=== PATIENT | female | born 1930 | race Caucasian/White ===

== ENCOUNTER 2016-10-17 05:21 | Observation (INO) | payer MEDICARE, MEDICAID ==
[2016-10-17 06:26] LABS: Hematocrit 35 % (35-47); Hemoglobin 11.4 g/dl (12.0-16.0); Mean Corpuscular HGB Conc 33 g/dl (31-36); Mean Corpuscular Hemoglobin 29 pg (27-31); Mean Corpuscular Volume 88 fL (80-97); Mean Platelet Volume 10 um3 (7.4-10.4); Red Blood Count 3.91 10^6/ul (4.0-5.4); Red Cell Distribution Width 15 % (10.5-15); White Blood Count 5.5 10^3/ul (3.5-10.8)
--- NOTE | 2016-10-17 06:33 | ED ---
Cheryl Resendez Claudia, scribed for Mac Lozano MD on 10/17/16 at 0536 . HPI Chest Pain - HPI Summary HPI Summary: 86 year old female presents to [facility] ED via EMS from her assisted living facility. Per EMS they received a call from the nursing staff personal banker stating that the pt was having CP, when they got to the shelter the pt was asleep and denied any CP, SOB. EMS then brought the pt to [facility] ED. Upon arrival to the ED the pt is still asymptomatic denying any abd pain, NVD, SOB, CP. - History of Current Complaint Chief Complaint: EDChestPainROMI Hx Obtained From: Patient Associated Signs and Symptoms: Negative: Chest Pain, Shortness of Breath, Nausea , Abdominal Pain, Vomiting - Allergy/Home Medications Allergies/Adverse Reactions: Allergies Allergy/AdvReac Type Severity Reaction Status Date / Time Amphetamine Allergy Unknown Verified 05/25/14 10:13 Reaction Details Caffeine Allergy Unknown Verified 05/25/14 10:13 Reaction Details Carisoprodol Allergy Unknown Verified 05/25/14 10:13 Reaction Details Codeine Allergy Unknown Verified 05/25/14 10:13 Reaction Details Erythromycin Allergy Unknown Verified 05/25/14 10:13 [From Erythrocin Stearate] Reaction Details Fluorouracil [From Efudex] Allergy Unknown Verified 05/25/14 10:13 Reaction Details Hydrochlorothiazide Allergy Unknown Verified 05/25/14 10:13 Reaction Details Ibuprofen Allergy Unknown Verified 05/25/14 10:13 Reaction Details Levofloxacin [From Levaquin] Allergy Unknown Verified 05/25/14 10:13 Reaction Details Macrolides Allergy Unknown Verified 05/25/14 10:13 Reaction Details Metaxalone [From Skelaxin] Allergy Unknown Verified 05/25/14 10:13 Reaction Details Nitrofurantoin Allergy Unknown Verified 05/25/14 10:13 [From Macrobid] Reaction Details Penicillins Allergy Unknown Verified 05/25/14 10:13 Reaction Details Sulfa Drugs Allergy Unknown Verified 05/25/14 10:13 Reaction Details PMH/Surg Hx/FS Hx/Imm Hx Previously Healthy: Yes Endocrine/Hematology History: Reports: Hx Diabetes Denies: Hx Anticoagulant Therapy, Hx Systemic Lupus Erythematosus, Hx Thyroid Disease Cardiovascular History: Reports: Hx Hypertension Denies: Hx Congestive Heart Failure, Hx Pacemaker/ICD Respiratory History: Denies: Hx Asthma, Hx Chronic Obstructive Pulmonary Disease (COPD) History: Denies: Hx Dialysis, Hx Renal Disease Musculoskeletal History: Denies: Hx Rheumatoid Arthritis Neurological History: Reports: Hx Dementia Denies: Hx Seizures Psychiatric History: Denies: Hx Substance Abuse - Cancer History Hx Chemotherapy: No - Surgical History Surgery Procedure, Year, and Place: cholecystectomy Infectious Disease History: Denies: Hx Hepatitis, Hx Human Immunodeficiency Virus (HIV) - Family History Known Family History: Positive: Hypertension - Social History Occupation: Retired Lives: Assisted Living Alcohol Use: None Substance Use Type: Reports: None Smoking Status (MU): Never Smoked Tobacco Review of Systems Constitutional: Negative Eyes: Negative ENT: Negative Cardiovascular: Negative Negative: Chest Pain Respiratory: Negative Negative: Shortness Of Breath Gastrointestinal: Negative Negative: Abdominal Pain, Vomiting, Diarrhea, Nausea Genitourinary: Negative Musculoskeletal: Negative Skin: Negative Neurological: Negative Psychological: Normal All Other Systems Reviewed And Are Negative: Yes Physical Exam Triage Information Reviewed: Yes Vital Signs On Initial Exam: Initial Vitals Temp Pulse Resp BP Pulse Ox 98.3 F 52 16 120/47 100 10/17/16 05:30 10/17/16 05:30 10/17/16 05:30 10/17/16 05:30 10/17/16 05:30 Vital Signs Reviewed: Yes Appearance: Positive: No Pain Distress - pleasantly demented Skin: Positive: Warm Head/Face: Positive: Normal Head/Face Inspection Eyes: Positive: MARK ENT: Positive: Hearing grossly normal Neck: Positive: Supple Respiratory/Lung Sounds: Positive: Clear to Auscultation, Breath Sounds Present Cardiovascular: Positive: RRR Abdomen Description: Positive: Nontender, Soft Musculoskeletal: Positive: Strength/ROM Intact Neurological: Positive: Alert, Oriented to Person Place, Time Diagnostics - Vital Signs Vital Signs Temp Pulse Resp BP Pulse Ox 10/17/16 05:30 98.3 F 52 16 120/47 100 - Laboratory Lab Results: Lab Results 10/17/16 Range/Units 06:15 WBC 5.5 (3.5-10.8) 10^3/ul RBC 3.91 L (4.0-5.4) 10^6/ul Hgb 11.4 L (12.0-16.0) g/dl Hct 35 (35-47) % MCV 88 (80-97) fL MCH 29 (27-31) pg MCHC 33 (31-36) g/dl RDW 15 (10.5-15) % Plt Count 143 L (150-450) 10^3/ul MPV 10 (7.4-10.4) um3 Neut % (Auto) 59.2 (38-83) % Lymph % (Auto) 30.7 (25-47) % [place] % (Auto) 9.1 H (1-9) % Eos % (Auto) 0.6 (0-6) % Baso % (Auto) 0.4 (0-2) % Absolute Neuts (auto) 3.3 (1.5-7.7) 10^3/ul Absolute Lymphs (auto) 1.7 (1.0-4.8) 10^3/ul Absolute Monos (auto) 0.5 (0-0.8) 10^3/ul Absolute Eos (auto) 0 (0-0.6) 10^3/ul Absolute Basos (auto) 0 (0-0.2) 10^3/ul Absolute Nucleated RBC 0 10^3/ul Nucleated RBC % 0.1 Result Diagrams: 10/17/16 06:15 10/17/16 06:15 Lab Statement: Any lab studies that have been ordered have been reviewed, and results considered in the medical decision making process. - Radiology CXR Xray Interpretation: No Acute Changes - NEGATIVE EXAM Radiology Interpretation Completed By: ED Physician - EKG 620 Cardiac Rate: Bradycardia EKG Rhythm: Sinus Bradycardia - 50 BEATS/MIN Chest Pain Course/Dx - Course Assessment/Plan: MDM: Pt agreeable with the plan to be d/c home after negative trop, EKG and CXR within nml limits. - Diagnoses Provider Diagnoses: Chest pain Discharge - Discharge Plan Condition: Stable Disposition: [facility] Patient Education Materials: Chest Pain (ED) Referrals: Jason James MD [Primary Care Provider] - 2 Days The documentation as recorded by the Cheryl mcdonald Claudia accurately reflects the service I personally performed and the decisions made by , Mac Lozano MD.
[2016-10-17 06:39] LABS: BUN/Creatinine Ratio 27.9 (8-20); Calcium 9.3 mg/dL (8.6-10.3); EGFR African American 59.8 (>60); EGFR Non-African American 46.5 (>60)
[2016-10-17 06:50] LABS: Troponin I 0.09 ng/mL (<0.04)
--- NOTE | 2016-10-17 07:56 | RAD ---
INDICATION: Chest pain COMPARISON: Chest x-ray dated April 09, 2014 TECHNIQUE: PA and lateral views of the chest were obtained. FINDINGS: Stable postoperative findings include sternotomy wires and surgical clips overlying the heart. The heart and mediastinum are normal in size and contour. Coarse calcification is again seen overlying the arch of the aorta. The lungs are grossly clear. There is no evidence of large pleural effusion. Visualized bones are normal for the patient's age. There is no radiographic evidence of free air beneath the diaphragm IMPRESSION: No radiographic evidence of acute cardiopulmonary disease.
[2016-10-17] MEDS ORDERED: Bisacodyl SUPP* 10 MG SUPP PR PRN (08:41)
[2016-10-17] MEDS ORDERED: cloNIDine TAB* 0.1 MG PO PRN ×2 (08:41→08:59)
[2016-10-17] MEDS ORDERED: Artificial Tears* 15 ML BTL BOTH EYES PRN (08:41)
[2016-10-17] MEDS ORDERED: Dextrose 50% Syringe 50 ML* 25 GM/50 ML SYRINGE IV PUSH PRN (08:47)
[2016-10-17] MEDS ORDERED: Insulin NPH(*) 1 UNITS UNIT SUBCUT SCH ×2 (09:00→17:00)
[2016-10-17] MEDS ORDERED: Insulin REGULAR(*) 1 UNITS UNIT SUBCUT SCH ×2 (09:00→17:00)
[2016-10-17 09:15] LABS: HDL Cholesterol 26.1 mg/dL
[2016-10-17] MEDS ORDERED: NS 0.9% 1000 ML* 1,000 ML IV SCH (09:15)
[2016-10-17] MEDS: Bisacodyl EC TAB* 5 MG PO SCH (11:11)
[2016-10-17] MEDS: Docusate CAP* 100 MG PO SCH (11:11)
[2016-10-17] MEDS: Potassium Chlor TAB* 10 MEQ TAB.ER PO SCH (11:12)
[2016-10-17] MEDS: Digoxin TAB* 0.25 MG PO SCH (11:14)
[2016-10-17] MEDS: Cholecalciferol TAB* 400 UNIT PO SCH (11:15)
[2016-10-17] MEDS: Furosemide TAB* 40 MG PO SCH (11:16)
[2016-10-17] MEDS: Aspirin Low Dose CHEW TAB* 81 MG PO SCH (11:16)
[2016-10-17] MEDS: Lisinopril TAB* 10 MG PO SCH (11:16)
[2016-10-17] MEDS: Senna TAB PO SCH (11:18)
[2016-10-17] MEDS: Carbidopa/Levodop 25/100 MG TAB(*) PO SCH ×3 (11:18→22:15)
[2016-10-17] MEDS: Cyanocobalamin TAB* 500 MCG PO SCH (11:18)
--- NOTE | 2016-10-17 11:45 | ECHO ---
Patient: ANUSHKA ROBISON [facility] Rec#: [id number] : 1930 Date: 10/17/2016 Age: 86y Height: 160.02 cm / 63.0 in Weight: 124.74 kg / 274.9 lbs Sex: F BSA: 2.21 Room#: 432 Admit Date#: 10/17/2016 Type: Inpatient Referring: Balbina Mckinley MD Reading: Jaun Shabazz MD Senior Environmental Consultant: Anali Funez,RDCS,RDMS CC: Jason James Transthoracic Echocardiogram Indication: CP, Elevated Trop BP: 121/54 HR: 55 Rhythm: Bradycardia Findings History: CAD, CABG, DM, HTN Technical Comments: The study quality is good. Completed 1000 Left Ventricle: The left ventricular chamber size is normal. Mild concentric left ventricular hypertrophy is observed. Global left ventricular wall motion and contractility are within normal limits. There is normal left ventricular systolic function. The estimated ejection fraction is 60-65%. The left ventricular diastolic filling pattern is consistent with pseudonormalization. Left Atrium: The left atrium is mild to moderately dilated. Right Ventricle: The right ventricle wall thickness is moderately increased. The right ventricular cavity size is normal. The right ventricular global systolic function is low normal. Right Atrium: The right atrium is slightly dilated. Aortic Valve: The aortic valve is trileaflet. The aortic valve leaflets are mildly thickened.The degree of aortic stenosis is borderline to mild. There is no evidence of aortic regurgitation. The mean gradient of the aortic valve is 3.5 mmHg. The aortic valve area, by peak velocities, is calculated at 1.9 cm2. Mitral Valve: There is mitral annular calcification. There is a trace of mitral regurgitation. There is no evidence of mitral stenosis. Tricuspid Valve: The tricuspid valve leaflets are normal. There is trace tricuspid regurgitation. Unable to estimate the right ventricular systolic pressure. Pulmonic Valve: The pulmonic valve appears normal. There is mild pulmonic regurgitation. Pericardium: There is no significant pericardial effusion. Aorta: The aortic root appears normal. There is no dilatation of the aortic arch. Pulmonary Artery: The main pulmonary artery appears normal. Venous: The inferior vena cava is not visualized. Conclusions Mild concentric left ventricular hypertrophy is observed. There is normal left ventricular systolic function. The estimated ejection fraction is 60-65%. The left ventricular diastolic filling pattern is consistent with pseudonormalization. The left atrium is mild to moderately dilated. The right atrium is slightly dilated. The aortic valve leaflets are mildly thickened.The degree of aortic stenosis is borderline to mild. There is a trace of mitral regurgitation. There is trace tricuspid regurgitation. Compared to report of study from 03/25/2011 the degree of aortic stenosis is slightly more (was reported as mildly thickened but not stenotic). Overall LV contractility appears better (was reported as 50-55% with focal wall motion abnormality which is no longer seen). Measurements Name Value Normal Range RVIDd (AP) 2D 3.4 cm (0.9 - 2.6) RAd ISD 4CH 5.1 cm (3.4 - 4.9) RA (A4C)W 3.4 cm (2.9 - 4.6) IVSd (2D) 1.3 cm (0.6 - 1) LVPWd (2D) 1.3 cm (0.6 - 1) LVIDd (2D) 4.8 cm (3.6 - 5.4) LVIDs (2D) 2.9 cm - LV FS (2D) 40 % (25 - 45) Aortic Annulus 2 cm (1.4 - 2.6) Ao root diameter (2D) 3.4 cm (2.1 - 3.5) Ascending Ao 3.3 cm (2.1 - 3.4) Aortic arch 2.8 cm (1.8 - 3.4) LA dimension (AP) 2D 4.2 cm (2.3 - 3.8) LAd ISD 4CH 5.9 cm (2.9 - 5.3) LA ISD 4CH W 4.8 cm (2.5 - 4.5) Name Value Normal Range LA ESV SP 4CH (A/L) 107.46 ml - LA ESV SP 2CH (A/L) 80.03 ml - LA ESV BP (A/L) 94.92 ml - LA ESV BP (A/L) index 43 ml/m2 - LA ESV SP 4CH (MOD) 100.28 ml - LA ESV SP 2CH (MOD) 73.34 ml - Name Value Normal Range MV E-wave Vmax 0.9 m/sec - MV deceleration time 207 msec - MV A-wave Vmax 0.6 m/sec - MV E:A ratio 1.5 ratio - P. vein S-wave Vmax 0.5 m/sec - P. vein D-wave Vmax 0.5 m/sec - P. vein S:D Vmax ratio 1 ratio - P. vein A-wave duration 157 msec - LV septal e' Vmax 0.03 m/sec - LV lateral e' Vmax 0.05 m/sec - LV E:e' septal ratio 30 ratio - LV E:e' lateral ratio 18 ratio - Name Value Normal Range AV Vmax 1.3 m/sec - AV VTI 36 cm - AV peak gradient 7 mmHg - AV mean gradient 3.5 mmHg - LVOT diameter 2 cm - LVOT Vmax 0.8 m/sec - LVOT VTI 25 cm - LVOT peak gradient 2.6 mmHg - LVOT mean gradient 1.2 mmHg - SAMEER (continuity Vmax) 1.9 cm2 - SAMEER (continuity VTI) 2.2 cm2 - ETIENNE Vmax 0.6 m/sec - Name Value Normal Range RAP 8 mmHg - Name Value Normal Range PV Vmax 0.8 m/sec - PV peak gradient 2.6 mmHg -
[2016-10-17] MEDS: Polyethylene Glycol 3350* 17 GM PACKET PO SCH (12:53)
--- NOTE | 2016-10-17 12:54 | HP ---
CC: Dr. Jason James HISTORY AND PHYSICAL: DATE OF ADMISSION: 10/17/16 TIME OF EVALUATION: 8:30 p.m. PRIMARY CARE PROVIDER: Dr. Jason James. CHIEF COMPLAINT: Chest pain. HISTORY OF PRESENT ILLNESS: Ms. Workman is an 86-year-old lady with a past medical history of naye nary artery disease, status post CABG, hypertension, diabetes, hyperlipidemia, osteoarthritis, morbi d obesity, Parkinson's, dementia, resident at [facility] who is brought in by EMS to the emergency room with complaints of chest pain. The patient does not remember what happened. As per alf notes on 10/15/16, around 10:26 p.m., the patient was noted to be short of breat h, had some increased shakiness of her right arm, had no complaints of pain and her oxygen saturatio n was found to be 83% on room air. At that point, the nurse practitioner on-call recommended the evelyn arnold to be transferred to [facility] for further evaluation, but the patient's condition had improved by t he time the ambulance arrived and the patient refused to leave. On note from 10/16/16, is the patie nt had no complaints of shortness of breath, oxygen saturation was 98% on room air. On 10/17/16, a t 4:38 a.m., the nurse was called that the patient was complaining of similar symptomatology from 2 days ago with chest pain and shortness of breath. Vital signs were found to be within normal limits and at that point the patient agreed to come to the emergency room for further evaluation. As per EMS note, by the time they arrived, she had no complaints and she was only saying that she did not w ant to bother anyone. At this point, she is unable to give me any further information about her symptoms. She points to he r retrosternal area and states "it was not working fine," but she cannot give me details. She denie s chest pain or shortness of breath at this point. As per daughter, the patient has coronary artery disease and had a CABG done in 1999. She states th at after surgery the patient did fairly well and has had very sporadic episodes of chest pain. The patient is not very active at this point. She uses a Juli lift for transfer. As per daughter, she uses a wheelchair, shuffling her legs, but cannot transfer or perform any other physical activit ies. The daughter also states the patient snores, and as far as she knows, she was never worked up for sleep apnea. PAST MEDICAL HISTORY: 1. Coronary artery disease, status post angioplasty and 4-vessel CABG in 1999. 2. Hypertension. 3. Type 2 diabetes. 4. Hyperlipidemia. 5. Osteoarthritis. 6. Morbid obesity with a BMI of 48. 7. Parkinson's disease. 8. Dementia. MEDICATION LIST: 1. Artificial tears 1 drop to both eyes twice a day as needed for dry eye. 2. Aspirin 81 mg p.o. daily. 3. Bisacodyl 5 mg p.o. daily. 4. Bisacodyl suppository 1 suppository per rectum daily as needed for constipation. 5. Carbidopa and levodopa 25/100 mg p.o. t.i.d. 6. Cholecalciferol 1200 units p.o. daily. 7. Clonidine 0.1 mg p.o. b.i.d. as needed for SBP over 180. 8. Cyanocobalamin 500 mcg p.o. daily. 9. Digoxin 0.25 mg p.o. daily. 10. Furosemide 40 mg p.o. daily. 11. Insulin 70/30, 28 units subcutaneously at 8 a.m. and 20 mg units subcutaneously at 5 p.m. 12. Lisinopril 20 mg p.o. daily. 13. MiraLAX 17 g p.o. daily. 14. Potassium chloride 20 mEq p.o. daily. 15. Senna Plus 2 tablets p.o. daily. ALLERGIES: As per daughter, the patient has a long list of medications that caused different reacti ons. Most of them are described as lethargy and altered mental status. The list includes: 1. AMPHETAMINE. 2. CAFFEINE. 3. CARISOPRODOL. 4. CODEINE. 5. ERYTHROMYCIN. 6. FLUOROURACIL. 7. HYDROCHLOROTHIAZIDE. 8. IBUPROFEN. 9. LEVOFLOXACIN. 10. MACROLIDES. 11. METAXALONE. 12. NITROFURANTOIN. 13. PENICILLIN. 14. SULFAS. FAMILY HISTORY: I am unable to obtain from the patient due to her dementia. SOCIAL HISTORY: I am unable to obtain from the patient due to her dementia. As per prior H and P, she denies tobacco or alcohol use. She resides at [facility]. Surrogate decision maker is her pily ghter, "Janet Sandoval," phone number is . REVIEW OF SYSTEMS: I am unable to obtain from the patient due to her dementia. PHYSICAL EXAMINATION GENERAL: The patient is a pleasantly confused, morbid obese, elderly lady, [facility], in no acute distress. VITAL SIGNS: Temperature 98.3, heart rate is 52, respiratory rate is 16, oxygen saturation is 99% o n room air, blood pressure is 120/47. HEENT: Pupils are equal. Moist mucous membranes. CHEST: Breath sounds present bilaterally with no added sounds. CVS: Normal S1, S2. Regular rate and rhythm. Bradycardic. ABDOMEN: Obese, soft. Bowel sounds are present. No tenderness. EXTREMITIES: The patient has bilateral lower extremity chronic skin changes with hyperkeratotic svetlana ls and skin, but no signs of infection at this time. She appears to have chronic lower extremity ed deepika. There is no calf tenderness. NEUROLOGIC: She is alert, awake, and oriented to self and place. Able to move all 4 extremities. LABORATORY AND IMAGING DATA: The patient had a CBC that showed a WBC of 5.5, hemoglobin of 11.4, h ematocrit of 35, platelets of 143 with 59% neutrophils. Chemistries showed a sodium of 133, potassiu m of 4, chloride of 102, bicarb of 25, BUN of 31, creatinine of 1.11, glucose of 219, calcium 9.3. First troponin was 0.09. Chest x-ray showed no radiographic evidence of acute cardiopulmonary disease. EKG done on 10/17/16 at 6:20 a.m. shows sinus bradycardia at 50 beats per minute with RBBB and a LPFB. This is unchanged from her prior EKG from May 2014. ASSESSMENT AND PLAN: Ms. Workman is an 86-year-old lady with a past medical history of coronary ar joao disease, status post CABG, hypertension, diabetes, hyperlipidemia, morbid obesity, Parkinson's dementia who presented to the emergency room with complaints of chest pain. 1. Chest pain, rule out acute coronary syndrome. The patient is not able to give me details about her symptoms because she does not recall them anymore, but per alf notes, it appears that f or the past 2 nights she has had chest pain and shortness of breath and at least 1 episode she was f ound to have an oxygen saturation of 83% on room air. The patient has a known history of coronary artery disease and her initial troponin is 0.09. She wi ll be admitted to telemetry as observation and we are going to check serial troponins. I am also go ing to check an echocardiogram looking for wall motion abnormalities. I discussed the findings we have so far with her daughter (Janet) and she states that her mother w ould not be interested in any invasive or aggressive measures. The plan at this point is to continue to treat her with aspirin, add a statin. She is already bradycardic, so for that reason a beta blo cker will not be added. If her troponin continues to trend up, her daughter would consider anticoag ulation with heparin, but she is not interested in stress test, cardiac cath, or any other aggressiv e measures. The patient does not have any recent trips. Her level of activity has not changed. She has no calf tenderness, so I think PE is very unlikely as the cause of her chest pain. I am going to check a D- dimer. 2. Probable obstructive sleep apnea. The patient is morbidly obese and as per her daughter, the pa catalina snores. I suspect overnight hypoxemia is likely associated with undiagnosed obstructive sleep apnea and the overnight hypoxia may be causing cardiac stress and be the source of her chest pain a nd borderline troponin. We are going to check an overnight oximetry on room air and see if she qualifies for oxygen. 3. Type 2 diabetes. We will continue regular and NPH insulin with lispro sliding scale. 4. Hypertension. It is controlled at this time. We continue clonidine as needed for SBP greater t connor 180. 5. Parkinson's disease. We will continue Sinemet. 6. DVT prophylaxis: The patient has a score of 4 on the DVT Prophylaxis Risk Assessment Guide and she will be started on subcutaneous heparin. 7. Code status: The patient has a MOLST form in place that states she is a do not resuscitate and this was confirmed with her daughter. The second page of her MOLST form is also filled up detailing the limited interventions that the patient would accept and this form was filed and updated. TIME SPENT: Approximately 60 minutes were spent with the patient's daughter interview, medical herson rds review, physical examination to complete this admission, more than half of this time was spent f christina-to-face with the patient in coordination of care. [id number]/[facility] #: [id number]
[2016-10-17] MEDS: Insulin LISPRO* 1 UNITS UNIT SUBCUT SCH ×3 (14:00→20:44)
[2016-10-17] MEDS: Heparin VIAL(*) 5000 UNITS/ML VIAL (FIVE THOUSAND) SUBCUT SCH ×2 (14:01→21:28)
--- NOTE | 2016-10-17 17:51 | PN ---
Hospitalist Progress Note HOSPITALIST ADDENDUM Called by RN because patient was more lethargic. FS was 61. After receiving dextrose, mental status is back to her baseline as this AM. Will hold evening NPH/regular insulin doses and repeat FS at bedtime. Will only cover with Lispro if FS>200.
[2016-10-17] MEDS: Atorvastatin* 40 MG TAB PO SCH (19:10)
[2016-10-17] MEDS: Nystatin TOP POWDER* 15 GM BTL TOPICAL SCH (21:30)
[2016-10-17] MEDS: cloNIDine TAB* 0.1 MG PO SCH (21:36)
[2016-10-17 22:28] LABS: Urine Bacteria Absent (Absent); Urine Bilirubin Negative (Negative); Urine Glucose Negative (Negative); Urine Nitrite Negative (Negative)
[2016-10-18 05:14] LABS: BUN/Creatinine Ratio 26.5 (8-20); Calcium 9.2 mg/dL (8.6-10.3); EGFR Non-African American 53.7 (>60); Potassium 3.7 mmol/L (3.5-5.0)
[2016-10-18] MEDS: Heparin VIAL(*) 5000 UNITS/ML VIAL (FIVE THOUSAND) SUBCUT SCH ×3 (05:47→20:49)
[2016-10-18] MEDS: Carbidopa/Levodop 25/100 MG TAB(*) PO SCH ×4 (05:52→20:47)
[2016-10-18] MEDS: Senna TAB PO SCH (08:43)
[2016-10-18] MEDS: Bisacodyl EC TAB* 5 MG PO SCH (08:43)
[2016-10-18] MEDS: Aspirin Low Dose CHEW TAB* 81 MG PO SCH (08:43)
[2016-10-18] MEDS: Docusate CAP* 100 MG PO SCH (08:43)
[2016-10-18] MEDS: Cholecalciferol TAB* 400 UNIT PO SCH (08:43)
[2016-10-18] MEDS: Digoxin TAB* 0.25 MG PO SCH (08:44)
[2016-10-18] MEDS: Potassium Chlor TAB* 10 MEQ TAB.ER PO SCH (08:46)
[2016-10-18] MEDS: Furosemide TAB* 40 MG PO SCH (08:46)
[2016-10-18] MEDS: cloNIDine TAB* 0.1 MG PO SCH ×2 (08:46→20:47)
[2016-10-18] MEDS: Polyethylene Glycol 3350* 17 GM PACKET PO SCH (08:46)
[2016-10-18] MEDS: Lisinopril TAB* 10 MG PO SCH (08:47)
[2016-10-18] MEDS: Insulin LISPRO* 1 UNITS UNIT SUBCUT SCH ×4 (08:47→20:53)
[2016-10-18] MEDS: Cyanocobalamin TAB* 500 MCG PO SCH (08:47)
[2016-10-18] MEDS: Nystatin TOP POWDER* 15 GM BTL TOPICAL SCH ×2 (08:48→20:49)
--- NOTE | 2016-10-18 12:03 | RAD ---
HISTORY: Leg pain TECHNIQUE: Multiple transverse and longitudinal ultrasound images were obtained of the veins of the bilateral lower extremities using grayscale, color Doppler, and spectral Doppler imaging with and without compression and with augmentation. FINDINGS: VEINS: The common femoral vein, deep femoral vein, femoral vein and popliteal vein are compressible throughout their course, with normal flow on color Doppler imaging and normal response to augmentation on spectral Doppler imaging. SOFT TISSUES: Grossly normal. No large popliteal fossa cyst was identified. IMPRESSION: No sonographic evidence of deep femoropopliteal vein thrombosis.
[2016-10-18] MEDS ORDERED: Iodixanol* (CONTRAST) 320 MG/ML 100 ML SDV IV ONE (12:21)
--- NOTE | 2016-10-18 12:38 | RAD ---
HISTORY: Chest pain, hypoxia COMPARISONS: April 09, 2014 TECHNIQUE: Multiple contiguous axial CT scans of the chest were obtained after the administration of nonionic intravenous contrast, timed to the pulmonary arterial phase of contrast enhancement.. Coronal and sagittal multiplanar reformations are also submitted for review. FINDINGS: NECK AND THYROID: The lower neck and thyroid are unremarkable. CHEST WALL: There is no lower cervical, axillary, or supraclavicular lymphadenopathy by size criteria. HEART AND PERICARDIUM: The heart is unremarkable. AORTA AND PULMONARY VASCULATURE: There is no pulmonary arterial filling defect to suggest pulmonary embolism. Evaluation the aorta is limited secondary to technique and phase of contrast demonstration. There is atherosclerosis of the aorta. There is no aneurysmal dilatation.. MEDIASTINUM: There is no mediastinal lymphadenopathy by size criteria. SANDRA: There is no hilar lymphadenopathy by size criteria. AIRWAY AND ESOPHAGUS: The airway is unremarkable, without endobronchial filling defect. The esophagus is grossly normal. LUNG PARENCHYMA: The lungs are clear. PLEURA: No pleural abnormalities are noted. UPPER ABDOMEN: The upper abdomen is unremarkable. BONES AND SOFT TISSUES: Mild degenerative changes are noted. The patient is status post median sternotomy. OTHER: None. IMPRESSION: NO PULMONARY ARTERIAL FILLING DEFECT TO SUGGEST PULMONARY EMBOLISM
--- NOTE | 2016-10-18 16:15 | DS ---
CC: Dr. Jason James DATE OF ADMISSION: 10/17/2016. DATE OF DISCHARGE: 10/18/2016. DISCHARGE DIAGNOSES: 1. Chest pain, acute coronary syndrome ruled out, PE ruled out. 2. Hyperglycemia. 3. Fungal infection on the breasts. 4. Mild sundowning. SECONDARY DIAGNOSES: 1. Coronary artery disease, status post angioplasty and four vessel CABG in 1999. 2. Hypertension. 3. Type 2 diabetes. 4. Hyperlipidemia. 5. Osteoarthritis. 6. Morbid obesity. 7. Parkinson's disease. 8. Dementia. MEDICATIONS: Updated according to longterm records: 1. Artificial Tears one drop to both eyes b.i.d. as needed for dry eyes. 2. Aspirin 81 mg p.o. daily. 3. Bisacodyl 5 mg p.o. daily prn constipation. 4. Bisacodyl suppository one suppository per rectum daily prn constipation. 5. Carbidopa/Levodopa 25/100 mg one tablet p.o. at 6:00 a.m. and 4:00 p.m. and [id number] p.o. at noon and at 2200. 6. Cholecalciferol 50,000 units p.o. q.30 days. 7. Clonidine 0.1 mg p.o. b.i.d. 8. Cyanocobalamin 500 mcg p.o. daily. 9. Digoxin 0.25 mg p.o. daily. 10. Furosemide 40 mg p.o. daily. 11. Insulin Lispro sliding scale: fingerstick 131-150 1 unit, 151-200 2 units, 201-250 4 units, 251-300 6 units, 301-350 8 units, 351-400 10 units, > 400 call MD. 12. Lisinopril 40 mg p.o. daily. 13. MiraLax 17 gm p.o. q.72 hours. 14. Potassium Chloride 20 mEq p.o. daily. 15. Senna Plus two tablets p.o. daily. New Medications: 1. Nitroglycerin 0.4 mg sublingual q.5 minutes prn chest pain. 2. Nystatin powder to be applied on the breast area b.i.d. HOSPITAL COURSE: Ms. Workman is an 86-year-old lady with a past medical history as stated above who presented to the emergency room with complaints of chest pain. Due to her dementia, the patient could not provide much information, but as per longterm records the patient had episodes of chest pain and shortness of breath on the night of October 15 and also the workforce manager of October 17. For more details about her presentation, I refer you to her history and physical. In the emergency room, she was found to have a minimally elevated troponin at 0.09 and her EKG had shown no acute change when compared to her prior one from 2014. She was admitted to the Telemetry floor for further evaluation and work-up. Serial troponins were borderline at 0.09, 0.07, 0.1, and 0.09. She had no further episodes of chest pain and no significant arrhythmias while on Telemetry. She underwent a transthoracic echocardiogram that showed mild concentric LVH with normal left ventricular systolic function and an ejection fraction of 60 to 65 percent. The left ventricular diastolic filling pattern is consistent with pseudonormalization. There was trace MR, trace TR, and borderline to mild aortic stenosis. When compared to her prior echo from March 2011, the degree of aortic stenosis is slightly more, but overall LV contractility appears better as it had been reported an ejection fraction of 50 to 55 percent with focal wall motion abnormality, which is no longer seen on this study. While in the longterm, the patient had had one episode of oxygen saturation of 83 percent on room air and there was concern for possible sleep apnea. She underwent overnight oximetry on room air and her oxygen saturation was equal or less than 89 percent for one minute and four seconds, so she does not appear to have significant hypoxia overnight. On the evening of October 17, the patient was more confused, moaning, and her glucose was found to be 61 at that time. The patient received Dextrose with improvement of her mental status, but she started to complain of leg pain at that point. With her history of leg pain, hypoxia, and chest pain, decision was made to rule out PE DVT. The patient had a lower extremity Doppler that showed no sonographic evidence of deep femoral popliteal vein thrombosis and CTA of the chest showed no pulmonary arterial filling defect to suggest pulmonary embolism. I had a long conversation with the patient's daughter (Janet Sandoval) about her mother's diagnosis. The patient cannot give me more characteristics about her pain, but I am concerned her pain can be cardiac in nature considering her minimal elevated troponin. The fact that her echocardiogram shows a good ejection fraction with no wall motion abnormalities, it is reassuring. We talked about the possibility of a stress test for further cardiac risk stratification, but her daughter is not interested in any invasive or aggressive measures. If the stress test were to be positive, the daughter would not be interested in a cardiac cath, stents, or surgery. So after reviewing the risks and benefits, decision at this point is to continue her aspirin and to add nitroglycerin as needed for symptom control and should maintain patient comfort. I talked to her about the possibilities of adding other medications, including a beta kelly instead of the patient's Clonidine, adding a statin, or even changing her antiplatelet agent, but her daughter is very concerned because the patient seems to be very sensitive to medications. She has a long list of medications that can cause different reactions usually associated with lethargy and worsening of her Parkinson's symptoms. After reviewing the risks and benefits, the decision at this point is for the patient to be discharged back to [facility] with the addition of nitroglycerin for symptom relief. If she continues to have episodes of chest pain, she should return to the hospital for further evaluation. Her daughter is open about talking about other medications and stress test in the future if her mother's symptoms persist. The patient's total cholesterol was 150, her LDL is 79. She did receive Atorvastatin while in the hospital, but as she was complaining of leg pain, I decided to stop it for now. I am not 100 percent sure that her leg pain was related to Atorvastatin, but I believe adding one medication at a time and observing for side effects would be the more prudent way to go, so I choose to start nitroglycerin first as this would provide symptom control and comfort for this patient. As stated above, if symptoms persist, consideration to changing her Clonidine to a beta kelly and adding a statin, or even a long-acting nitrate could be strategies tried in the future. As per daughter's report, the patient has had very hard to control diabetes in the longterm and her glucose was in the 200s when she came to the emergency room. I kept her insulin regimen as it was being done at the longterm, but she developed hypoglycemia. She has been well controlled off Insulin 70/30 and requiring minimal amounts of Lispro coverage. I believe her fingersticks should be monitored a.c. and at bedtime at least for the first week to make sure she has no further episodes of hypoglycemia and that her glucose remains well- controlled. If her p.o. carbohydrate intake increases and glucose trends up, her prior regimen of Insulin 70/30 could be resumed depending on her Primary care provider opinion. The patient had mild episodes of confusion and agitation in the early evenings, compatible with sundowning. She's back to her baseline at this time. She is medically stable to be discharge back to [facility] today. PHYSICAL EXAMINATION: General: The patient is a pleasantly confused, elderly lady sitting up in bed in no acute distress. Vital Signs: Temperature 97.4, heart rate 54, respiratory rate 20, oxygen saturation 100 percent on room air, blood pressure 150/51. CVS: Normal S1, S2. Regular rate and rhythm. Chest: Breath sounds present bilaterally with no added sounds. Abdomen: Soft, bowel sounds present. Extremities: No edema. Neuro: She is alert, awake, and oriented to self only, able to move all four extremities. DIET: Heart healthy, consistent carb diet. ACTIVITY: As tolerated. DISPOSITION: To home. STATUS WHILE IN THE HOSPITAL: Observation. Please keep in mind this is a summarized version of this patient's hospital stay. If you need more information, please feel free to call me at or please obtain the full medical records. Approximately 45 minutes were spent to complete the discharge [id number]/[facility] #: [id number] [facility]ITALAmita
--- NOTE | 2016-10-18 17:05 | PN ---
Hospitalist Progress Note HOSPITALIST ADDENDUM Called by RN because patient is more confused and agitated. VS are stable and FS was 154. CVS: normal S1 and S2, RRR. Chest: BS+ bilaterally with no added sounds. A/P: Sundowning - Will hold discharge for now and continue to monitor. - Will try to manage with supportive measures and avoid sedating meds as patient has h/o being very sensitive to meds in the past. - Daughters updated at bedside.
[2016-10-18] MEDS: Atorvastatin* 40 MG TAB PO SCH (17:17)
[2016-10-19] MEDS: Heparin VIAL(*) 5000 UNITS/ML VIAL (FIVE THOUSAND) SUBCUT SCH (05:23)
[2016-10-19] MEDS: Carbidopa/Levodop 25/100 MG TAB(*) PO SCH (05:25)
[2016-10-19 07:23] VITALS: BP 174/51
--- NOTE | 2016-10-19 08:22 | PN ---
Hospitalist Progress Note HOSPITALIST ADDENDUM Patient had an uneventful night. Offers no complaints at this time and is surprised she slept untill 8AM. Anxiously waiting for breakfast. Vital Signs 10/18/16 23:15 Temperature 97.2 F Pulse Rate 52 Respiratory 16 Rate Blood Pressure 144/49 (mmHg) O2 Sat by Pulse 98 Oximetry CVS: normal S1 and S2, RRR. Chest: BS+ bilaterally with no added sounds. Abd: obese, soft, BS+. A/P: She appears to be back at her baseline. [facility].
[2016-10-19] MEDS: Lisinopril TAB* 10 MG PO SCH (08:40)
[2016-10-19] MEDS: Digoxin TAB* 0.25 MG PO SCH (08:40)
[2016-10-19] MEDS: Furosemide TAB* 40 MG PO SCH (08:41)
[2016-10-19] MEDS: Docusate CAP* 100 MG PO SCH (08:41)
[2016-10-19] MEDS: Potassium Chlor TAB* 10 MEQ TAB.ER PO SCH (08:41)
[2016-10-19] MEDS: Cholecalciferol TAB* 400 UNIT PO SCH (08:41)
[2016-10-19] MEDS: Aspirin Low Dose CHEW TAB* 81 MG PO SCH (08:41)
[2016-10-19] MEDS: Cyanocobalamin TAB* 500 MCG PO SCH (08:41)
[2016-10-19] MEDS: Senna TAB PO SCH (08:41)
[2016-10-19] MEDS: cloNIDine TAB* 0.1 MG PO SCH (08:42)
[2016-10-19] MEDS: Polyethylene Glycol 3350* 17 GM PACKET PO SCH (08:42)
[2016-10-19] MEDS: Insulin LISPRO* 1 UNITS UNIT SUBCUT SCH (08:42)
[2016-10-19] MEDS: Bisacodyl EC TAB* 5 MG PO SCH (08:53)
[2016-10-19] MEDS: Nystatin TOP POWDER* 15 GM BTL TOPICAL SCH (10:35)
== END 2016-10-19 11:35 ==
LOC: ED 05:21 → MEDTELE 07:13
PROVIDERS: ADMIT Internal Medicine; ATTEND Internal Medicine
DX: R07.9 Chest pain, unspecified (principal); R74.8 Abnormal levels of other serum enzymes; E11.65 Type 2 diabetes mellitus with hyperglycemia; B36.8 Other specified superficial mycoses; F05 Delirium due to known physiological condition; I25.10 Atherosclerotic heart disease of native coronary artery without angina pectoris; I10 Essential (primary) hypertension; Z95.1 Presence of aortocoronary bypass graft; Z95.5 Presence of coronary angioplasty implant and graft; E78.5 Hyperlipidemia, unspecified; G20 Parkinson's disease; F02.80 Dementia in other diseases classified elsewhere, unspecified severity, without behavioral disturbance, psychotic disturbance, mood disturbance, and anxiety; I49.1 Atrial premature depolarization; I45.2 Bifascicular block; I51.7 Cardiomegaly; E66.01 Morbid (severe) obesity due to excess calories; Z79.4 Long term (current) use of insulin; Z79.899 Other long term (current) drug therapy; Z88.1 Allergy status to other antibiotic agents; Z88.8 Allergy status to other drugs, medicaments and biological substances; Z88.0 Allergy status to penicillin; Z88.2 Allergy status to sulfonamides
CPT/HCPCS: 36415; 71020; 71275; 80048; 80061; 81003; 81015; 83036; 84484; 85025; 85379; 87641; 93005; 93306; 93970; 94762; 96360; 96361; 96372; 99283; A9270-GY; G0378; J1644; Q9967

== ENCOUNTER 2016-10-28 15:00 | Inpatient (IN) | payer MEDICARE, MEDICAID ==
[2016-10-28] MEDS ORDERED: Aspirin Low Dose CHEW TAB* 81 MG PO ONE (15:27)
[2016-10-28 15:38] LABS: Hematocrit 39 % (35-47); Hemoglobin 12.8 g/dl (12.0-16.0); Mean Corpuscular HGB Conc 33 g/dl (31-36); Mean Corpuscular Hemoglobin 29 pg (27-31); Mean Corpuscular Volume 89 fL (80-97); Mean Platelet Volume 11 um3 (7.4-10.4); Red Blood Count 4.37 10^6/ul (4.0-5.4); Red Cell Distribution Width 16 % (10.5-15); White Blood Count 6.8 10^3/ul (3.5-10.8)
[2016-10-28 15:51] LABS: ALT 6 U/L (7-52); Albumin 3.7 g/dL (3.2-5.2); Alkaline Phosphatase 60 U/L (34-104); BUN/Creatinine Ratio 15.4 (8-20); Blood Urea Nitrogen 18 mg/dL (6-24); CO2 Carbon Dioxide 24 mmol/L (22-32); Chloride 102 mmol/L (101-111); EGFR African American 56.3 (>60); EGFR Non-African American 43.8 (>60); Globulin 3.7 g/dL (2-4); Glucose 216 mg/dL (70-100); Sodium 133 mmol/L (133-145); Total Protein 7.4 g/dL (6.4-8.9)
--- NOTE | 2016-10-28 15:51 | RAD ---
HISTORY: Chest pain, pneumonia, CHF COMPARISONS: October 17, 2016 VIEWS:1: Single frontal portable view of the chest at 3:45 PM FINDINGS: LINES AND TUBES: None. CARDIOMEDIASTINAL SILHOUETTE: The cardiomediastinal silhouette is normal for portable technique. PLEURA: The costophrenic angles are sharp. No pleural abnormalities are noted. LUNG PARENCHYMA: The lungs are clear. ABDOMEN: The upper abdomen is clear. There is no subphrenic gas. BONES AND SOFT TISSUES: The patient is status post median sternotomy. IMPRESSION: NO ACTIVE CARDIOPULMONARY DISEASE.
[2016-10-28 15:54] LABS: Troponin I 0.15 ng/mL (<0.04)
[2016-10-28 16:10] LABS: Anion Gap 7 mmol/L (2-11)
[2016-10-28] MEDS ORDERED: Dextrose 50% Syringe 50 ML* 25 GM/50 ML SYRINGE IV PUSH PRN (17:45)
[2016-10-28] MEDS ORDERED: Acetaminophen TAB* 325 MG PO PRN (17:45)
[2016-10-28] MEDS ORDERED: Ondansetron INJ* 2 MG/ML VIAL IV PRN (17:45)
[2016-10-28] MEDS ORDERED: Polyethylene Glycol 3350* 17 GM PACKET PO PRN (17:50)
[2016-10-28] MEDS ORDERED: Senna TAB PO PRN (17:50)
[2016-10-28] MEDS ORDERED: Docusate CAP* 100 MG PO PRN (17:58)
[2016-10-28] MEDS ORDERED: Heparin VIAL(*) 5000 UNITS/ML VIAL (FIVE THOUSAND) IV SCH (18:00)
--- NOTE | 2016-10-28 18:43 | ED ---
Alejandra Resendez Seung-Jae, scribed for Santiago Srinivasan MD on 10/28/16 at 1717 . HPI Chest Pain - HPI Summary HPI Summary: Pt is a 86 y/o F presenting to the ED with c/o CP onset from 2-3 days ago. Pt's daughter states that pt was admitted before on 10/17 for 2 days in [facility] due to SOB. Pt's daughter states that the Trop level has been elevated to a level of 0.1 since then. Associated Sx includes nausea. Pt denies vomiting and SOB. Pt has had a SHx of CABG. - History of Current Complaint Chief Complaint: EDChestPainROMI Time Seen by Provider: 10/28/16 15:28 Hx Obtained From: Patient, Family/Industrial Servicer - pt's daughter Onset/Duration: Started Hours Ago, Started Days Ago, Still Present Timing: Constant Chest Pain Location: Diffuse Chest Pain Radiates: No Character: Dull/Aching Aggravating Factor(s): Nothing Alleviating Factor(s): Nothing Associated Signs and Symptoms: Positive: Chest Pain, Calf Pain/Swelling - Additional Pertinent History Primary Care Physician: [id number] - Allergy/Home Medications Allergies/Adverse Reactions: Allergies Allergy/AdvReac Type Severity Reaction Status Date / Time Amphetamine Allergy Unknown Verified 10/28/16 15:11 Reaction Details Caffeine Allergy Unknown Verified 10/28/16 15:11 Reaction Details Carisoprodol Allergy Unknown Verified 10/28/16 15:11 Reaction Details Codeine Allergy Unknown Verified 10/28/16 15:11 Reaction Details Erythromycin Allergy Unknown Verified 10/28/16 15:11 [From Erythrocin Stearate] Reaction Details Fluorouracil [From Efudex] Allergy Unknown Verified 10/28/16 15:11 Reaction Details Hydrochlorothiazide Allergy Unknown Verified 10/28/16 15:11 Reaction Details Ibuprofen Allergy Unknown Verified 10/28/16 15:11 Reaction Details Levofloxacin [From Levaquin] Allergy Unknown Verified 10/28/16 15:11 Reaction Details Macrolides Allergy Unknown Verified 10/28/16 15:11 Reaction Details Metaxalone [From Skelaxin] Allergy Unknown Verified 10/28/16 15:11 Reaction Details Nitrofurantoin Allergy Unknown Verified 10/28/16 15:11 [From Macrobid] Reaction Details Penicillins Allergy Unknown Verified 10/28/16 15:11 Reaction Details Sulfa Drugs Allergy Unknown Verified 10/28/16 15:11 Reaction Details Home Medications: Home Medications Artificial Tears* 15 ML BTL [Polyvinyl Alcohol 1.4% OPTH*] 1 drop BOTH EYES BID PRN 10/28/16 [History Confirmed 10/28/16] Isosorbide Dinitrate TAB* [Isordil TAB*] 10 mg PO QID 10/28/16 [History Confirmed 10/28/16] Lactic Acid (Ammonium Lactate) [Ammonium Lactate] 12 % TOPICAL QPM PRN 10/28/16 [History Confirmed 10/28/16] Polyethylene Glycol 3350* [Miralax*] 17 gm PO Q72H PRN 10/28/16 [History Confirmed 10/28/16] PMH/Surg Hx/FS Hx/Imm Hx Endocrine/Hematology History: Reports: Hx Diabetes Denies: Hx Anticoagulant Therapy, Hx Systemic Lupus Erythematosus, Hx Thyroid Disease Cardiovascular History: Reports: Hx Hypertension, Other Cardiovascular Problems/ Disorders - Quadruple bypass Surgery Denies: Hx Congestive Heart Failure, Hx Pacemaker/ICD Respiratory History: Reports: Hx Pneumonia Denies: Hx Asthma, Hx Chronic Obstructive Pulmonary Disease (COPD) GI History: Reports: Hx Diverticulosis, Hx Gall Bladder Disease History: Denies: Hx Dialysis, Hx Renal Disease Musculoskeletal History: Reports: Hx Back Problems Denies: Hx Rheumatoid Arthritis Sensory History: Reports: Hx Hearing Problem - hard of hearing Denies: Hx Contacts or Glasses, Hx Deafness, Hx Hearing Aid Opthamlomology History: Denies: Hx Contacts or Glasses Neurological History: Reports: Hx Dementia Denies: Hx Developmental Delay, Hx Headaches, Hx Migraine, Hx Nerve Disease, Hx Seizures, Hx Spinal Cord Injury, Hx Transient Ischemic Attacks (TIA), Other Neuro Impairments/Disorders Psychiatric History: Denies: Hx Substance Abuse - Cancer History Hx Chemotherapy: No - Surgical History Surgery Procedure, Year, and Place: cholecystectomy, quadruple bypass 1999, ruptured disc surgery 1997 Infectious Disease History: Unable to Obtain/Confirm Infectious Disease History: Denies: Hx Hepatitis, Hx Human Immunodeficiency Virus (HIV), Traveled Outside the [place] in Last 30 Days - Family History Known Family History: Positive: Hypertension - Social History Alcohol Use: None Substance Use Type: Reports: None Smoking Status (MU): Never Smoked Tobacco Review of Systems Positive: Chest Pain Negative: Shortness Of Breath Positive: Nausea. Negative: Vomiting All Other Systems Reviewed And Are Negative: Yes Physical Exam - Summary Physical Exam Summary: The patient is well-nourished in no acute distress and in no acute pain. The skin is warm and dry and skin color reflects adequate perfusion. HEENT: The head is normocephalic and atraumatic. The pupils are equal and reactive. The conjunctivae are clear and without drainage. Nares are patent and without drainage. Mouth reveals moist mucous membranes and the throat is without erythema and exudate. The external ears are intact. The ear canals are patent and without drainage. The tympanic membranes are intact. Neck is supple with full range of motion and non-tender. There are no carotid bruits. There is no neck vein distension. Respiratory: Chest is non-tender. Lungs are clear to auscultation and breath sounds are symmetrical and equal. Cardiovascular: Heart is regular rate and rhythm. There is no murmur or rub auscultated. There is no peripheral edema and pulses are symmetrical and equal. Abdomen: The abdomen is soft, obese, and non-tender. There are normal bowel sounds heard in all four quadrants and there is no organomegaly palpated. Musculoskeletal: There is no back pain noted. Extremities are non-tender with full range of motion. There is good capillary refill. There is edema in bilat lower extremities and erythema in BLE. Neurological: Patient is alert and oriented to person, place and time. The patient has symmetrical motor strength in all four extremities. Cranial nerves are grossly intact. Deep tendon reflexes are symmetrical and equal in all four extremities. Psychiatric: The patient has an appropriate affect and does not exhibit any anxiety or depression. Triage Information Reviewed: Yes Vital Signs On Initial Exam: Initial Vitals Temp Pulse Resp BP Pulse Ox 96.4 F 64 20 113/79 96 10/28/16 15:08 10/28/16 15:08 10/28/16 15:08 10/28/16 15:08 10/28/16 15:08 Vital Signs Reviewed: Yes Diagnostics - Vital Signs Vital Signs Temp Pulse Resp BP Pulse Ox 10/28/16 15:08 96.4 F 64 20 113/79 96 - Laboratory Lab Results: Lab Results 10/28/16 10/28/16 10/28/16 Range/Units 15:11 15:11 15:11 WBC 6.8 (3.5-10.8) 10^3/ul RBC 4.37 (4.0-5.4) 10^6/ul Hgb 12.8 (12.0-16.0) g/dl Hct 39 (35-47) % MCV 89 (80-97) fL MCH 29 (27-31) pg MCHC 33 (31-36) g/dl RDW 16 H (10.5-15) % Plt Count 194 (150-450) 10^3/ul MPV 11 H (7.4-10.4) um3 Neut % (Auto) 58.5 (38-83) % Lymph % (Auto) 31.5 (25-47) % [place] % (Auto) 8.3 (1-9) % Eos % (Auto) 0.6 (0-6) % Baso % (Auto) 1.1 (0-2) % Absolute Neuts (auto) 4.0 (1.5-7.7) 10^3/ul Absolute Lymphs (auto) 2.1 (1.0-4.8) 10^3/ul Absolute Monos (auto) 0.6 (0-0.8) 10^3/ul Absolute Eos (auto) 0 (0-0.6) 10^3/ul Absolute Basos (auto) 0.1 (0-0.2) 10^3/ul Absolute Nucleated RBC 0 10^3/ul Nucleated RBC % 0.1 Sodium 133 (133-145) mmol/L Potassium Pending Chloride 102 (101-111) mmol/L Carbon Dioxide 24 (22-32) mmol/L Anion Gap Pending BUN 18 (6-24) mg/dL Creatinine 1.17 H (0.51-0.95) mg/dL Est GFR ( Amer) 56.3 (>60) Est GFR (Non-Af Amer) 43.8 (>60) BUN/Creatinine Ratio 15.4 (8-20) Glucose 216 H (70-100) mg/dL Lactic Acid 3.2 H* (0.5-2.0) mmol/L Calcium 10.0 (8.6-10.3) mg/dL Total Bilirubin 0.50 (0.2-1.0) mg/dL AST TNP ALT 6 L (7-52) U/L Alkaline Phosphatase 60 (34-104) U/L Troponin I 0.15 H* (<0.04) ng/mL B-Natriuretic Peptide ( - 100) pg/mL Total Protein 7.4 (6.4-8.9) g/dL Albumin 3.7 (3.2-5.2) g/dL Globulin 3.7 (2-4) g/dL Albumin/Globulin Ratio 1.0 (1-3) // Range/Units 15:11 WBC (3.5-10.8) 10^3/ul RBC (4.0-5.4) 10^6/ul Hgb (12.0-16.0) g/dl Hct (35-47) % MCV (80-97) fL MCH (27-31) pg MCHC (31-36) g/dl RDW (10.5-15) % Plt Count (150-450) 10^3/ul MPV (7.4-10.4) um3 Neut % (Auto) (38-83) % Lymph % (Auto) (25-47) % [place] % (Auto) (1-9) % Eos % (Auto) (0-6) % Baso % (Auto) (0-2) % Absolute Neuts (auto) (1.5-7.7) 10^3/ul Absolute Lymphs (auto) (1.0-4.8) 10^3/ul Absolute Monos (auto) (0-0.8) 10^3/ul Absolute Eos (auto) (0-0.6) 10^3/ul Absolute Basos (auto) (0-0.2) 10^3/ul Absolute Nucleated RBC 10^3/ul Nucleated RBC % Sodium (133-145) mmol/L Potassium Chloride (101-111) mmol/L Carbon Dioxide (22-32) mmol/L Anion Gap BUN (6-24) mg/dL Creatinine (0.51-0.95) mg/dL Est GFR ( Amer) (>60) Est GFR (Non-Af Amer) (>60) BUN/Creatinine Ratio (8-20) Glucose (70-100) mg/dL Lactic Acid (0.5-2.0) mmol/L Calcium (8.6-10.3) mg/dL Total Bilirubin (0.2-1.0) mg/dL AST ALT (7-52) U/L Alkaline Phosphatase (34-104) U/L Troponin I (<0.04) ng/mL B-Natriuretic Peptide 359 H ( - 100) pg/mL Total Protein (6.4-8.9) g/dL Albumin (3.2-5.2) g/dL Globulin (2-4) g/dL Albumin/Globulin Ratio (1-3) Result Diagrams: 10/28/16 15:11 10/28/16 15:11 Lab Statement: Any lab studies that have been ordered have been reviewed, and results considered in the medical decision making process. - Radiology Chest Xr Xray Interpretation: No Acute Changes - Impression: No active cardiopulmonary disease. Radiology Interpretation Completed By: Radiologist - EKG 15:16 Cardiac Rate: NL - 78 bpm EKG Rhythm: Sinus Rhythm ST Segment: Normal EKG Interpretation: Q waves in Lead III AVF, RBBB Chest Pain Course/Dx - Course Assessment/Plan: Pt is a 86 y/o F presenting to the ED with c/o CP onset from 2- 3 days ago. Pt's daughter states that pt was admitted before on 10/17 for 2 days in [facility] due to [place]. Pt's daughter states that the Trop level has been elevated to a level of 0.1 since then. Associated Sx includes nausea. Pt denies vomiting and SOB. Pt has had a SHx of CABG. EKG shows Q waves in Lead III AVF, and RBBB. The CXR shows no active cardiopulmonary disease. Pt was - Chest Pain Differential Diagnosis/HQI/PQRI: Acute MO, ACS - Diagnoses Provider Diagnoses: Chest pain, Elevated troponin I level, Non-ST elevation MO (NSTEMI) - Provider Notifications Discussed Care Of Patient With: Sabino Edmonds Time Discussed With Above Provider: 16:45 Discharge - Discharge Plan Condition: Stable Disposition: ADMITTED TO [facility] The documentation as recorded by the Alejandra mcdonald Seung-Jae accurately reflects the service I personally performed and the decisions made by Craig avila Drew, MD.
[2016-10-28 19:13] LABS: Troponin I 0.18 ng/mL (<0.04)
[2016-10-28] MEDS: Heparin DRIP 25,000 UNITS(*) 25,000 UNITS/500 ML BAG IVPB SCH (19:56)
[2016-10-28] MEDS: Isosorbide Dinitrate TAB* 10 MG PO SCH (21:14)
[2016-10-28] MEDS: Metoprolol Tartrate TAB* 25 MG PO SCH (21:14)
[2016-10-28] MEDS: Carbidopa/Levodop 25/100 MG TAB(*) PO SCH (21:15)
--- NOTE | 2016-10-28 21:42 | HP ---
CC: Dr. James; Dr. Churchill* HISTORY AND PHYSICAL: DATE OF ADMISSION: 10/28/16 PRIMARY CARE PROVIDER: Dr. James. ATTENDING PHYSICIAN WHILE IN THE HOSPITAL: Sabino Edmonds MD* (report being dictated by Eder Pina NP) CHIEF COMPLAINT: 1. Chest pain. 2. Elevated troponin. HISTORY OF PRESENT ILLNESS: Ms. Workman is an 86-year-old female patient with mild dementia, CAD, hypertension, diabetes, hyperlipidemia, arthritis, obesity, essential tremors. She comes in today. Apparently, the patient does not recall this history because of her dementia, but she apparently had episode of chest pain on Friday according to the daughter. The daughter was contacted by [facility]. The patient's medications were changed and was actually started on isosorbide dinitrate on 10/25/16. In addition to this, she was given nitro, the pain subsided. She was feeling well throughout the weekend. According to the daughter, there were no reports of chest pain. The patient had no more chest pain throughout the weekend; but on Friday, labs were drawn and her troponin was 0.13 and she was sent to the ER. The patient was evaluated in the ER. She denies chest pain currently. She denies feeling short of breath. She denies having any nausea. She really is unable to recall if she had any chest pain this morning or not because of her dementia. The family said to their knowledge does not think that she did. Because of the elevated troponin and the fact that she has a significant heart disease, the hospitalist service was asked to evaluate for admission. She was recently here from the beginning of the month for similar complaints. Her troponins maxed to 0.1. The patient's family did not want to start on new medications because she is sensitive to medication. In addition to this, they were not willing to pursue stress test or cath. She was evaluated here today and because of that elevated troponin, we were asked to evaluate for admission. PAST MEDICAL HISTORY: 1. CAD. 2. Hypertension. 3. Diabetes. 4. Hyperlipidemia. 5. Arthritis. 6. Obesity. 7. Tremors. 8. Dementia. PAST SURGICAL HISTORY: 1. She has had a CABG. 2. Heart catheterization. 3. Laparoscopic cholecystectomy. HOME MEDICATIONS: According to the list from [facility]: 1. Nystatin powder 1 application topically b.i.d. 2. Lactic acid 12% topically q.p.m. as needed. 3. Nitro 0.4 mg sublingual every 5 minutes as needed. 4. Isosorbide dinitrate 10 mg p.o. 4 times a day. 5. Insulin sliding scale as directed. 6. Sinemet half a tab at noon and 2200. 7. Sinemet 1 tablet at 6 and 1700. 8. Senna 2 tabs p.o. at bedtime as needed. 9. Artificial Tears 1 drop to both eyes b.i.d. as needed. 10. Vitamin D3 50,000 units every 30 days. 11. MiraLAX 17 g every 72 hours as needed. 12. Potassium 20 mEq p.o. daily. 13. Lisinopril 40 mg daily. 14. Aspirin 81 mg p.o. daily. ALLERGIES TO MEDICATIONS: Include AMPHETAMINE, CAFFEINE, SOMA, CODEINE, ERYTHROMYCIN, EFUDEX, HYDROCHLOROTHIAZIDE, IBUPROFEN, LEVAQUIN, MACROLIDES, SKELAXIN, MACROBID, PENICILLIN, and SULFA DRUGS. FAMILY HISTORY: It is really unknown by the patient, but the family says her father had dementia and the patient's mother may have had heart failure. SOCIAL HISTORY: She does not smoke. She does not drink. She lives at [facility]. Surrogate decision maker is her daughter, Janet. REVIEW OF SYSTEMS: There is no documented fever. She denied having any significant weight change. There was no double vision. She denies having any ear discharge. No rhinorrhea. No sore throat. No thyroid enlargement. Denies any chest pain now. No shortness of breath. No abdominal pain. No nausea. No vomiting. No dysuria. No frequency. No seizure. No loss of consciousness. No pruritus. No skin ulcerations. Review of 14 systems completed, all others negative. PHYSICAL EXAMINATION GENERAL: At this time, Ms. Workman is an 86-year-old female patient. She is sitting in the ER stretcher. She does not appear to be in any acute distress. VITAL SIGNS: Blood pressure 148/58, pulse 71, respirations 16, O2 sat 97%, and temperature of 96.4. HEENT: Head: Atraumatic and normocephalic. Eyes: EOMs intact. Sclerae anicteric, and not pale. Throat: Oral mucosa appears to be moist. No oropharyngeal erythema. NECK: Supple. LUNGS: Clear to auscultation bilaterally. There were no wheezes, rales, or rhonchi. HEART: Sounds S1 and S2. Regular rate and rhythm. No murmurs, rubs, or gallops were appreciated. ABDOMEN: Soft, it was flat, and nontender. Bowel sounds present. EXTREMITIES: Pulses were 2+ throughout. She has no peripheral edema. NEUROLOGIC: She is alert to herself only. She is confused to time and place. Speech is clear. Fundraising Specialist were equal. No facial drooping. No gross focal deficits. SKIN: Intact. LABORATORY DATA/IMAGING STUDIES: Labs revealed WBC of 6.8, RBC of 4.37, hemoglobin 12.8, hematocrit of 39, platelet count of 194. Sodium was 133; potassium pending; chloride 102; bicarb 24; BUN 18; creatinine 1.17, which is right near her baseline; glucose of 216; lactic 3.2; calcium 10. Total bilirubin 0.5, ALT 6, alk phos 60. Troponin was 0.15, previously was 0.13 and it was as low as 0.06. Her BNP was 359. Albumin 3.7. She did have a chest x- ray obtained today. Radiology read it as no active cardiopulmonary disease. There is an EKG obtained today, which revealed a normal sinus rhythm, it is difficult, there is a artifact. She has right bundle- branch block noted, which is noted on previous EKG. She did have an echo obtained today, which revealed EF of 60% to 65%. Old medical records were reviewed. ASSESSMENT AND PLAN: Ms. Wrokman is an 86-year-old female patient coming into the ER today with complaints of chest pain on Friday, now found to have an elevated troponin. She will be admitted under inpatient status for: 1. Acute coronary syndrome: At this point, she is chest pain free fortunately. I did touch base with Dr. Churchill, who will evaluate the patient in the morning. The family is interested now because this is the second time she has been back with chest pain. Possibly stress test or even a heart catheterization. The plan is to go ahead and put her on heparin, aspirin, beta- kelly, statin therapy and she is also on nitrates already. She is chest pain free currently. She will be placed on telemetry. We will cycle her troponins. Dr. Churchill will evaluate in the morning. 2. Coronary artery disease: Again aspirin, statin, beta-kelly and nitrates. 3. Hypertension: Continue meds as prescribed and adding on a beta-kelly. 4. Diabetes: Lispro sliding scale. 5. Hyperlipidemia: Check lipid panel and continue her statin. 6. Arthritis: Tylenol p.r.n. is available. 7. History of tremors: Continue with carbidopa and levodopa. 8. Dementia: Continue with supportive care. 9. DVT prophylaxis. She will be placed on heparin drip. 10. Code status: She is a DNR with a trial of intubation. TIME SPENT: Time spent on admission was 60 minutes, greater than half time was spent [id number] with the patient, obtaining my history and physical, other half time was spent going over the plan of care with the patient and implementing the plan of care. I did discuss the plan of care with my attending, Dr. Edmonds, who is in agreement. EDER PINA NP [id number]/CPS #: [id number] LIBRADO
[2016-10-29 04:58] LABS: Hematocrit 36 % (35-47); Hemoglobin 11.8 g/dl (12.0-16.0); Mean Corpuscular HGB Conc 33 g/dl (31-36); Mean Corpuscular Hemoglobin 29 pg (27-31); Mean Corpuscular Volume 90 fL (80-97); Mean Platelet Volume 10 um3 (7.4-10.4); Red Blood Count 4.02 10^6/ul (4.0-5.4); Red Cell Distribution Width 16 % (10.5-15); White Blood Count 6.4 10^3/ul (3.5-10.8)
[2016-10-29 05:13] LABS: BUN/Creatinine Ratio 17.5 (8-20); Calcium 9.4 mg/dL (8.6-10.3); EGFR African American 54.7 (>60); EGFR Non-African American 42.5 (>60); HDL Cholesterol 27.8 mg/dL
[2016-10-29] MEDS: Carbidopa/Levodop 25/100 MG TAB(*) PO SCH ×4 (05:59→20:46)
[2016-10-29] MEDS: Insulin LISPRO* 1 UNITS UNIT SUBCUT SCH ×3 (08:58→16:51)
[2016-10-29] MEDS: Lisinopril TAB* 10 MG PO SCH (08:59)
[2016-10-29] MEDS: Potassium Chlor TAB* 10 MEQ TAB.ER PO SCH (08:59)
[2016-10-29] MEDS: Aspirin Low Dose CHEW TAB* 81 MG PO SCH (08:59)
[2016-10-29] MEDS: Isosorbide Dinitrate TAB* 10 MG PO SCH ×4 (09:00→20:47)
[2016-10-29] MEDS: Metoprolol Tartrate TAB* 25 MG PO SCH ×2 (09:47→20:45)
[2016-10-29] MEDS: Atorvastatin* 40 MG TAB PO SCH (16:27)
--- NOTE | 2016-10-29 16:52 | PN ---
Subjective Date of Service: 10/29/16 Interval History: HOSPITALIST PROGRESS NOTE Patient seen and examined at bedside. She offers no complaints at this time. She knows she's in the hospital, but doesn't know why. Family History: Unchanged from Admission Social History: Unchanged from Admission Past Medical History: Unchanged from Admission Objective Active Medications: Acetaminophen (Tylenol Tab*) 650 mg PO Q4H PRN PRN Reason: FEVER/PAIN Aspirin (Aspirin Low Dose Tab*) 81 mg PO DAILY [facility] Last Admin: 10/29/16 08:59 Dose: 81 mg Atorvastatin Calcium (Lipitor*) 40 mg PO 1700 [facility] Last Admin: 10/29/16 16:27 Dose: 40 mg Carbidopa/Levodopa (Sinemet 25/100 Tab(*)) 0.5 tab PO 1200,2200 [facility] Last Admin: 10/29/16 11:37 Dose: 0.5 tab Carbidopa/Levodopa (Sinemet 25/100 Tab(*)) 1 tab PO 0600,1700 [facility] Last Admin: 10/29/16 16:26 Dose: 1 tab Dextrose (D50w Syringe 50 Ml*) 12.5 gm IV PUSH .FOR FS < 60 - SS PRN PRN Reason: FS < 60 Docusate Sodium (Colace Cap*) 200 mg PO BEDTIME PRN PRN Reason: CONSTIPATION Heparin Sodium (Porcine) (Heparin Vial(*)) 0 units IV .PER PROTOCOL [facility] PRN Reason: Protocol Last Admin: 10/28/16 19:54 Dose: 4,350 units Heparin Sodium/Dextrose (Heparin Drip 25,000 Units(*)) 25,000 units in 500 mls @ 0 mls/hr IVPB .PER RATE [facility]; Per Protocol PRN Reason: Protocol Last Admin: 10/28/16 19:56 Dose: 19 mls/hr Insulin Human Lispro (Humalog*) 0 units SUBCUT AC [facility] PRN Reason: Protocol Last Admin: 10/29/16 12:05 Dose: 3 unit Isosorbide Dinitrate (Isordil Tab*) 10 mg PO QID [facility] Last Admin: 10/29/16 16:27 Dose: 10 mg Lisinopril (Prinivil Tab*) 40 mg PO DAILY [facility] Last Admin: 10/29/16 08:59 Dose: 40 mg Metoprolol Tartrate (Lopressor Tab*) 12.5 mg PO Q12HR [facility] Last Admin: 10/29/16 09:47 Dose: Not Given Ondansetron HCl (Zofran Inj*) 4 mg IV Q6H PRN PRN Reason: NAUSEA Polyethylene Glycol/Electrolytes (Miralax*) 17 gm PO Q72H PRN PRN Reason: CONSTIPATION Potassium Chloride (Klor Con Er Tab*) 20 meq PO DAILY [facility] Last Admin: 10/29/16 08:59 Dose: 20 meq Senna (Senokot Tab*) 2 tab PO BEDTIME PRN PRN Reason: CONSTIPATION Vital Signs 10/29/16 10/29/16 10/29/16 07:57 08:55 11:56 Temperature 98.4 F 97.4 F Pulse Rate 56 54 Respiratory 18 16 16 Rate Blood Pressure 183/64 155/59 (mmHg) O2 Sat by Pulse 100 98 Oximetry 10/29/16 15:37 Temperature 96.2 F Pulse Rate 52 Respiratory 18 Rate Blood Pressure 149/54 (mmHg) O2 Sat by Pulse 100 Oximetry Oxygen Devices in Use Now: None Appearance: Elderly obese lady lying in bed in [facility]. Eyes: No Scleral Icterus Ears/Nose/Mouth/Throat: Mucous Membranes Moist Neck: Trachea Midline Respiratory: Symmetrical Chest Expansion and Respiratory Effort, Clear to Auscultation Cardiovascular: RRR - Normal S1 and S2 Abdominal: NL Sounds; No Tenderness; No Distention Neurological: - - AAox2 (self and place), PRICE Lines/Tubes/Other Access: Clean, Dry and Intact Peripheral IV Nutrition: Taking PO's Result Diagrams: 10/29/16 04:49 10/29/16 04:49 Assess/Plan/Problems-Billing Assessment: Mrs. Workman is an 86yo F with PMH of CAD s/p angioplasty and 4 vessel CABG in 1999, HTN, type 2 DM, HLD, obesity, Parkinson's disease, dementia, recent admission for chest pain, who presented to ED with further episodes of chest pain, found to have NSTEMI. - Patient Problems (1) NSTEMI (non-ST elevated myocardial infarction) Comment: - Patient remains chest pain free. - On her prior admission after discussion with her family decision was to avoid aggressive measures and pursue only medical management, but as her symptoms persisted, they're willing to pursue further work up. - Lengthy conversation with daughter, son, DIL, and granddaughter - they're all in agreement with stress test, not only for diagnostic purposes, but also for prognosis. - Continue Aspirin, nitrates, metoprolol, statin, and heparin drip. (2) Diabetes Comment: - Continue Lispro SS. (3) HTN (hypertension) Comment: - Continue Metoprolol and Lisinopril. (4) Parkinsonism Comment: - Continue Carbidopa/Levodopa. (5) DVT prophylaxis Comment: - Heparin drip. (6) DNR (do not resuscitate) Status and Disposition: Inpatient.
[2016-10-29] MEDS ORDERED: Atorvastatin* 40 MG TAB PO SCH (17:00)
--- NOTE | 2016-10-29 22:46 | CONS ---
CARDIOLOGY CONSULTATION: DATE OF CONSULT: 10/29/16 INDICATION FOR CONSULTATION: Coronary artery disease, chest pain. PRIMARY CARE PHYSICIAN: Dr. James. HISTORY OF PRESENT ILLNESS: The patient is an 86-year-old patient with a history of mild dementia, history of coronary artery disease, history of coronary artery bypass surgery in the distant past, c omes in today with elevated troponin level. The patient was at [facility] earlier this mo nth with chest pain. She had a minimally elevated troponin level at 0.16 and the patient was discha rged back to [facility] with aspirin. The patient had another episode of chest ricarda n on 10/25/16. At that time, she was treated with nitroglycerin and her chest pain became better. On Friday morning, they decided to get lab work and her troponin level at [facility] was elevated. The patient was transported to the emergency room for evaluation. The patient has not had any radha st pain over the weekend. She has not had any chest pain since 10/25/16. Again, the patient has mi ld dementia and is unable to give accurate history. Currently at the time of the interview, the pat brett was not having any chest pain. Available at the interview was her [id number], her son and granddaughter. They state that the patient in general has a good quality of life. She is interact contreras at [facility]. She makes it down to her meals. They deny that she has any orthopnea. No low er extremity edema. The patient becomes very agitated when she has chest pain. PAST MEDICAL HISTORY: Significant for coronary artery disease, hypertension, diabetes, hyperlipidem ia, arthritis, obesity, moderate dementia. PAST SURGICAL HISTORY: Coronary artery bypass surgery in the distant past, laparoscopic cholecystec randa. OUTPATIENT MEDICATIONS: 1. Isosorbide dinitrate 10 mg 4 times a day. 2. Nitroglycerin sublingual. 3. Nystatin powder. 4. Insulin sliding scale. 5. Sinemet as directed. 6. Senna 2 tabs q.h.s. 7. MiraLAX 17 g every 72 hours. 8. Potassium 20 mEq a day. 9. Lisinopril 40 mg a day. 10. Aspirin 81 mg a day. The patient was started on a beta-kelly and statin therapy in the emergency room. ALLERGIES: The patient has multiple allergies that are listed in her medical record. FAMILY HISTORY: Unknown. The patient is unable to give that history. SOCIAL HISTORY: The patient denies tobacco or alcohol use. She is at [facility]. PHYSICAL EXAMINATION: Height is 5 feet 7 inches, weight is 215 pounds, temperature 98.4, heart rate is 56, respiratory rate 16, oxygenation 90% on room air, blood pressure 155/56. Sclerae anicteric. Oropharynx is pink without erythema. Carotids are 2+ without bruits. JVD is normal. Thyroid is n ormal. Cardiac Exam: S1, S2 without any murmurs, rubs or gallops. Lungs are clear to auscultation bilaterally. There is no dullness to percussion. Abdomen is soft, nontender, nondistended with nor mal active bowel sounds. Extremities: Show no edema. She has 2+ pulses throughout. The patient i s awake and alert, but unable to give any history. DIAGNOSTIC STUDIES/LAB DATA: EKG demonstrates normal sinus rhythm with a right bundle branch block and left posterior fascicular block. CBC within normal limits. Chemistries within normal limits. BUN 21, creatinine 1.2. Initial tropo wendie level 0.15, second troponin 0.18, third troponin 0.16. IMPRESSION AND PLAN: This is an 86-year-old woman with a history of mild dementia with a history of coronary artery disease, who was admitted to the hospital twice in the last 2 weeks with chest pain . Each time she has mild elevation of troponin levels. She has no dynamic EKG changes. I had a long discussion with her daughter and son-in-law regarding her cardiac evaluation. I did ta lk to them about continuing just medical therapy in hopes that her chest pain will be under control with just medicines. The patient was started on a beta-kelly and a statin therapy in the emergenc y room yesterday. I also had a long discussion with them about possible stress testing and guidance towards cardiac catheterization. The patient's family would like to avoid cardiac catheterization unless had a clear benefit to her overall care. For now, the recommendation is to stay on her current medications. The patient will undergo a chemi richard nuclear stress test for evaluation. If the stress test shows lower intermittent risk, the patie nt will continue on medical therapy. If her stress test has a high risk component to it, then furth er discussion will be made with the patient and family regarding further care. [id number]/[facility] #: [id number]
[2016-10-30] MEDS: Heparin DRIP 25,000 UNITS(*) 25,000 UNITS/500 ML BAG IVPB SCH (04:54)
[2016-10-30] MEDS: Carbidopa/Levodop 25/100 MG TAB(*) PO SCH ×6 (05:00→22:38)
[2016-10-30 05:09] LABS: Hematocrit 36 % (35-47); Hemoglobin 11.7 g/dl (12.0-16.0); Mean Corpuscular HGB Conc 33 g/dl (31-36); Mean Corpuscular Hemoglobin 30 pg (27-31); Mean Corpuscular Volume 90 fL (80-97); Mean Platelet Volume 10 um3 (7.4-10.4); Red Blood Count 3.94 10^6/ul (4.0-5.4); Red Cell Distribution Width 16 % (10.5-15); White Blood Count 5.8 10^3/ul (3.5-10.8)
[2016-10-30 05:45] LABS: BUN/Creatinine Ratio 21.8 (8-20); Calcium 9.1 mg/dL (8.6-10.3); EGFR African American 66.7 (>60); EGFR Non-African American 51.8 (>60); Potassium 3.9 mmol/L (3.5-5.0)
[2016-10-30] MEDS: Insulin LISPRO* 1 UNITS UNIT SUBCUT SCH ×3 (08:54→16:36)
[2016-10-30] MEDS: Isosorbide Dinitrate TAB* 10 MG PO SCH ×2 (09:11→15:27)
[2016-10-30] MEDS: Aspirin Low Dose CHEW TAB* 81 MG PO SCH (09:11)
[2016-10-30] MEDS: Potassium Chlor TAB* 10 MEQ TAB.ER PO SCH (09:11)
[2016-10-30] MEDS: Lisinopril TAB* 10 MG PO SCH (09:11)
[2016-10-30] MEDS: Metoprolol Tartrate TAB* 25 MG PO SCH ×2 (12:05→21:59)
[2016-10-30] MEDS ORDERED: Aminophylline IV* 25 MG/ML 10 ML VIAL ONE (12:44)
[2016-10-30] MEDS ORDERED: Regadenoson* 0.4 MG/5 ML SYRINGE ONE (12:44)
--- NOTE | 2016-10-30 14:57 | RAD ---
Edited for charges. INDICATION: Chest pain, shortness of breath. COMPARISON: No relevant prior exams available on the [facility] [place]. TECHNIQUE: 10.550 mCi of Tc-99m Myoview were administered IV. SPECT images of the heart were obtained. Later on the same day. Under the direction of Dr. Kingston, the patient was given an IV injection of a pharmacologic stress agent. Subsequently, the patient was given an IV injection of 26.380 mCi Tc-99m Myoview. SPECT images of the heart were obtained. No gated images obtained due to arrhythmia. No CT for attenuation correction due to decreased range of motion of the arms. FINDINGS: The nonattenuation corrected images demonstrate a large perfusion defect at stress from the apical lateral inferior segments through the basilar lateral and inferior segments with mild marginal reversal at rest most prominent at the apical inferior segment. No additional myocardial perfusion defects evident. IMPRESSION: 1. Limited exam due to arrhythmia precluding gating for a motion study and absence of CT for attenuation correction. 2. Large inferolateral infarct with suggestion of mild carlee-infarct ischemia most prominent at the apical inferior segment. While absence of CT for attenuation correction limits assessment the region of the perfusion defect is not typical for either breast or solely diaphragmatic attenuation. MTDD
[2016-10-30] MEDS: Heparin VIAL(*) 5000 UNITS/ML VIAL (FIVE THOUSAND) SUBCUT SCH ×2 (15:27→22:00)
--- NOTE | 2016-10-30 16:25 | PN ---
Subjective Date of Service: 10/30/16 - CC: CP Interval History: Most history provided by the daughter as the patient is [place] and has significant dementia. The patient had no CP when I saw. With chemical stress she developed nausea, no CP. The patient's daughter relates CP an NH was occuring at night, she had JEFFY eval and no apnea seen per the daughter. Medications Active Medications: Acetaminophen (Tylenol Tab*) 650 mg PO Q4H PRN PRN Reason: FEVER/PAIN Aspirin (Aspirin Low Dose Tab*) 81 mg PO DAILY [facility] Last Admin: 10/30/16 09:11 Dose: 81 mg Atorvastatin Calcium (Lipitor*) 40 mg PO 1700 [facility] Last Admin: 10/29/16 16:27 Dose: 40 mg Carbidopa/Levodopa (Sinemet 25/100 Tab(*)) 1 tab PO 0600,1700 [facility] Last Admin: 10/30/16 05:00 Dose: 1 tab Carbidopa/Levodopa (Sinemet 25/100 Tab(*)) 0.5 tab PO 1200,2200 [facility] Last Admin: 10/30/16 15:45 Dose: 0.5 tab Dextrose (D50w Syringe 50 Ml*) 12.5 gm IV PUSH .FOR FS < 60 - SS PRN PRN Reason: FS < 60 Docusate Sodium (Colace Cap*) 200 mg PO BEDTIME PRN PRN Reason: CONSTIPATION Heparin Sodium (Porcine) (Heparin Vial(*)) 5,000 units SUBCUT Q8HR [facility] Last Admin: 10/30/16 15:27 Dose: 5,000 units Insulin Human Lispro (Humalog*) 0 units SUBCUT AC [facility] PRN Reason: Protocol Last Admin: 10/30/16 12:17 Dose: Not Given Isosorbide Dinitrate (Isordil Tab*) 10 mg PO QID [facility] Last Admin: 10/30/16 15:27 Dose: 10 mg Lisinopril (Prinivil Tab*) 40 mg PO DAILY [facility] Last Admin: 10/30/16 09:11 Dose: 40 mg Metoprolol Tartrate (Lopressor Tab*) 12.5 mg PO Q12HR [facility] Last Admin: 10/30/16 12:05 Dose: Not Given Ondansetron HCl (Zofran Inj*) 4 mg IV Q6H PRN PRN Reason: NAUSEA Polyethylene Glycol/Electrolytes (Miralax*) 17 gm PO Q72H PRN PRN Reason: CONSTIPATION Potassium Chloride (Klor Con Er Tab*) 20 meq PO DAILY [facility] Last Admin: 10/30/16 09:11 Dose: 20 meq Senna (Senokot Tab*) 2 tab PO BEDTIME PRN PRN Reason: CONSTIPATION Objective Vital Signs: Temp Pulse Resp BP Pulse Ox 98.1 F 52 16 148/55 100 10/30/16 11:05 10/30/16 11:05 10/30/16 11:05 10/30/16 11:05 10/30/16 11:05 Oxygen Devices in Use Now: None Appearance: Elderly woman, sitting up in bed, smiling and eating. Eyes: No Scleral Icterus, PERRLA Ears/Nose/Mouth/Throat: Clear Oropharnyx, Mucous Membranes Moist Neck: NL Appearance and Movements; NL JVP, No Thyroid Enlargement, Masses Respiratory: Clear to Auscultation - distant Cardiovascular: NL Sounds; No Murmurs; No JVD - distant HS., RRR Abdominal: NL Sounds; No Tenderness; No Distention Extremities: No Edema Neurological: - - demented, [place], severe, eats independantly, per family Juli lift to wheel chairs, shuffles chair with her feet. Laboratory Results: 10/30/16 05:01 10/30/16 05:00 APTT 60.0 seconds (26.0-36.3) H 10/30/16 05:00 Total Bilirubin 0.50 mg/dL (0.2-1.0) 10/28/16 15:11 AST 11 U/L (13-39) L 10/28/16 18:41 ALT 6 U/L (7-52) L 10/28/16 15:11 Alkaline Phosphatase 60 U/L (34-104) 10/28/16 15:11 B-Natriuretic Peptide 359 pg/mL (-100) H 10/28/16 15:11 Total Protein 7.4 g/dL (6.4-8.9) 10/28/16 15:11 Albumin 3.7 g/dL (3.2-5.2) 10/28/16 15:11 Globulin 3.7 g/dL (2-4) 10/28/16 15:11 Albumin/Globulin Ratio 1.0 (1-3) 10/28/16 15:11 Triglycerides 140 mg/dL 10/29/16 04:49 Cholesterol 128 mg/dL 10/29/16 04:49 LDL Cholesterol 72 mg/dL 10/29/16 04:49 HDL Cholesterol 27.8 mg/dL 10/29/16 04:49 10/28/16 10/28/16 18:41 21:28 Troponin I 0.18 H* 0.16 H* Diagnostic Imaging: Nuclear chemical stress: Fixed defect, large, inf.lateral with mild carlee infarct ischemia. EF unable to be evaluated. Echo 10/17/16: EF 60-65%, mild , trace valve leaks. Assessment/Plan 86 yo demented female, lives in [place], recurrent admission for CP with bump in trops. Preserved EF. CAD risks of DM, obese, HTN, cholesterol, inactive. Points of Discussion: Chest pain: Treat as angina, stress test suggests occluded circumflex, possible collateral flow. The patient's daughters OK with trial of more aggressive medical management. I would recommend vasodilators: Recommend adding Norvasc/amlodipine (5 or 10 mg/day). As discussed option to convert isorsorbide to NTG patch HS. Continue statin and beta kelly. Consider Ranexa if needed. There is a differential of hibernating myocardium. If further CP a viability study could be performed. Anemia is chronic, but could impact on symptoms and if invasive measures needed in the future this could preclude stenting, I recommend out patient work up unless recently done. Ensure no GERD as well as this occurs HS Need f/u with cardiology 1-2 weeks.
[2016-10-30] MEDS: Atorvastatin* 40 MG TAB PO SCH (16:51)
--- NOTE | 2016-10-30 17:03 | PN ---
Subjective Date of Service: 10/30/16 Interval History: HOSPITALIST PROGRESS NOTE Patient seen and examined at bedside. She offers no complaints at this time. Family History: Unchanged from Admission Social History: Unchanged from Admission Past Medical History: Unchanged from Admission Objective Active Medications: Acetaminophen (Tylenol Tab*) 650 mg PO Q4H PRN PRN Reason: FEVER/PAIN Amlodipine Besylate (Norvasc Tab*) 5 mg PO DAILY [facility] Aspirin (Aspirin Low Dose Tab*) 81 mg PO DAILY [facility] Last Admin: 10/30/16 09:11 Dose: 81 mg Atorvastatin Calcium (Lipitor*) 40 mg PO 1700 [facility] Last Admin: 10/30/16 16:51 Dose: 40 mg Carbidopa/Levodopa (Sinemet 25/100 Tab(*)) 1 tab PO 0600,1700 [facility] Last Admin: 10/30/16 05:00 Dose: 1 tab Carbidopa/Levodopa (Sinemet 25/100 Tab(*)) 0.5 tab PO 1200,2200 [facility] Last Admin: 10/30/16 15:45 Dose: 0.5 tab Dextrose (D50w Syringe 50 Ml*) 12.5 gm IV PUSH .FOR FS < 60 - SS PRN PRN Reason: FS < 60 Docusate Sodium (Colace Cap*) 200 mg PO BEDTIME PRN PRN Reason: CONSTIPATION Heparin Sodium (Porcine) (Heparin Vial(*)) 5,000 units SUBCUT Q8HR [facility] Last Admin: 10/30/16 15:27 Dose: 5,000 units Insulin Human Lispro (Humalog*) 0 units SUBCUT AC [facility] PRN Reason: Protocol Last Admin: 10/30/16 16:36 Dose: 2 unit Lisinopril (Prinivil Tab*) 40 mg PO DAILY [facility] Last Admin: 10/30/16 09:11 Dose: 40 mg Metoprolol Tartrate (Lopressor Tab*) 12.5 mg PO Q12HR [facility] Last Admin: 10/30/16 12:05 Dose: Not Given Nitroglycerin (Nitroglycerin 10 Mg Patch*) 1 patch TRANSDERM BEDTIME [facility] Ondansetron HCl (Zofran Inj*) 4 mg IV Q6H PRN PRN Reason: NAUSEA Pharmacy Profile Note (Nitro Patch/Oint Remove*) 1 note PATCH OFF 0900 [facility] Polyethylene Glycol/Electrolytes (Miralax*) 17 gm PO Q72H PRN PRN Reason: CONSTIPATION Potassium Chloride (Klor Con Er Tab*) 20 meq PO DAILY [facility] Last Admin: 10/30/16 09:11 Dose: 20 meq Senna (Senokot Tab*) 2 tab PO BEDTIME PRN PRN Reason: CONSTIPATION Vital Signs 10/30/16 10/30/16 07:50 11:05 Temperature 98.1 F Pulse Rate 52 Respiratory 16 16 Rate Blood Pressure 148/55 (mmHg) O2 Sat by Pulse 100 Oximetry Oxygen Devices in Use Now: None Appearance: Elderly lady lying in bed in NAD. Eyes: No Scleral Icterus Ears/Nose/Mouth/Throat: Mucous Membranes Moist Neck: Trachea Midline Respiratory: Symmetrical Chest Expansion and Respiratory Effort, Clear to Auscultation Cardiovascular: RRR - Normal S1 and S2 Abdominal: NL Sounds; No Tenderness; No Distention Neurological: - - AAOx2 (self and place), PRICE Lines/Tubes/Other Access: Clean, Dry and Intact Peripheral IV Nutrition: Taking PO's Result Diagrams: 10/30/16 05:01 10/30/16 05:00 Assess/Plan/Problems-Billing Assessment: Mrs. Workman is an 86yo F with PMH of CAD s/p angioplasty and 4 vessel CABG in 1999, HTN, type 2 DM, HLD, obesity, Parkinson's disease, dementia, recent admission for chest pain, who presented to ED with further episodes of chest pain, found to have NSTEMI. - Patient Problems (1) NSTEMI (non-ST elevated myocardial infarction) Comment: - Stress test showed large inferolateral infarct with suggestion of mild carlee-infarct ischemia. - Cardiology input appreciated - continue Aspirin, metoprolol, statin, add amlodipine in AM and nitro patch QHS. - Family updated and in agreement with plan. (2) Diabetes Comment: - Continue Lispro SS. (3) HTN (hypertension) Comment: - Continue Metoprolol and Lisinopril. (4) Parkinsonism Comment: - Continue Carbidopa/Levodopa. (5) DVT prophylaxis Comment: - Heparin drip. (6) DNR (do not resuscitate) Status and Disposition: Inpatient.
[2016-10-30] MEDS: Nitroglycerin 0.4 MG/HR PATCH* (10 MG) TRANSDERM SCH (22:00)
[2016-10-31] MEDS: Carbidopa/Levodop 25/100 MG TAB(*) PO SCH ×4 (05:06→21:22)
[2016-10-31] MEDS: Heparin VIAL(*) 5000 UNITS/ML VIAL (FIVE THOUSAND) SUBCUT SCH ×3 (05:07→21:22)
[2016-10-31] MEDS: Insulin LISPRO* 1 UNITS UNIT SUBCUT SCH ×3 (08:34→18:12)
[2016-10-31] MEDS: Potassium Chlor TAB* 10 MEQ TAB.ER PO SCH (08:35)
[2016-10-31] MEDS: Lisinopril TAB* 10 MG PO SCH (08:36)
[2016-10-31] MEDS: Aspirin Low Dose CHEW TAB* 81 MG PO SCH (08:36)
[2016-10-31] MEDS: Metoprolol Tartrate TAB* 25 MG PO SCH ×2 (08:37→21:22)
[2016-10-31] MEDS: Nitro Patch/OINT Remove PATCH OFF SCH (08:45)
[2016-10-31] MEDS ORDERED: amLODIPine TAB* 5 MG PO SCH (09:00)
[2016-10-31 09:41] LABS: Hematocrit 39 % (35-47); Hemoglobin 12.8 g/dl (12.0-16.0); Mean Corpuscular HGB Conc 33 g/dl (31-36); Mean Corpuscular Hemoglobin 29 pg (27-31); Mean Corpuscular Volume 89 fL (80-97); Mean Platelet Volume 10 um3 (7.4-10.4); Red Blood Count 4.38 10^6/ul (4.0-5.4); Red Cell Distribution Width 16 % (10.5-15); White Blood Count 5.3 10^3/ul (3.5-10.8)
[2016-10-31] MEDS ORDERED: amLODIPine TAB* 5 MG PO ONE (14:59)
--- NOTE | 2016-10-31 15:05 | PN ---
Subjective Date of Service: 10/31/16 Interval History: HOSPITALIST PROGRESS NOTE Patient seen and examined at bedside. She was agitated earlier today, removed her IVs, was trying to get out of bed. After daughter arrived, she has been calm and cooperative. Denies CP. Tolerating diet well. Family History: Unchanged from Admission Social History: Unchanged from Admission Past Medical History: Unchanged from Admission Objective Active Medications: Acetaminophen (Tylenol Tab*) 650 mg PO Q4H PRN PRN Reason: FEVER/PAIN Amlodipine Besylate (Norvasc Tab*) 5 mg PO DAILY [facility] Last Admin: 10/31/16 08:36 Dose: 5 mg Aspirin (Aspirin Low Dose Tab*) 81 mg PO DAILY [facility] Last Admin: 10/31/16 08:36 Dose: 81 mg Atorvastatin Calcium (Lipitor*) 40 mg PO 1700 [facility] Last Admin: 10/30/16 16:51 Dose: 40 mg Carbidopa/Levodopa (Sinemet 25/100 Tab(*)) 0.5 tab PO 1200,2200 [facility] Last Admin: 10/31/16 13:05 Dose: 0.5 tab Carbidopa/Levodopa (Sinemet 25/100 Tab(*)) 1 tab PO 0600,1700 [facility] Last Admin: 10/31/16 05:06 Dose: 1 tab Dextrose (D50w Syringe 50 Ml*) 12.5 gm IV PUSH .FOR FS < 60 - SS PRN PRN Reason: FS < 60 Docusate Sodium (Colace Cap*) 200 mg PO BEDTIME PRN PRN Reason: CONSTIPATION Heparin Sodium (Porcine) (Heparin Vial(*)) 5,000 units SUBCUT Q8HR [facility] Last Admin: 10/31/16 13:05 Dose: 5,000 units Insulin Human Lispro (Humalog*) 0 units SUBCUT AC [facility] PRN Reason: Protocol Last Admin: 10/31/16 13:03 Dose: 2 unit Lisinopril (Prinivil Tab*) 40 mg PO DAILY [facility] Last Admin: 10/31/16 08:36 Dose: 40 mg Metoprolol Tartrate (Lopressor Tab*) 12.5 mg PO Q12HR [facility] Last Admin: 10/31/16 08:37 Dose: 12.5 mg Nitroglycerin (Nitroglycerin 10 Mg Patch*) 1 patch TRANSDERM BEDTIME [facility] Last Admin: 10/30/16 22:00 Dose: 1 patch Ondansetron HCl (Zofran Inj*) 4 mg IV Q6H PRN PRN Reason: NAUSEA Pharmacy Profile Note (Nitro Patch/Oint Remove*) 1 note PATCH OFF 0900 [facility] Last Admin: 10/31/16 08:45 Dose: 1 patch Polyethylene Glycol/Electrolytes (Miralax*) 17 gm PO Q72H PRN PRN Reason: CONSTIPATION Potassium Chloride (Klor Con Er Tab*) 20 meq PO DAILY [facility] Last Admin: 10/31/16 08:35 Dose: 20 meq Senna (Senokot Tab*) 2 tab PO BEDTIME PRN PRN Reason: CONSTIPATION Vital Signs 10/31/16 10/31/16 07:37 08:00 Temperature 97.1 F Pulse Rate 51 Respiratory 20 20 Rate Blood Pressure 167/48 (mmHg) O2 Sat by Pulse 100 Oximetry Oxygen Devices in Use Now: None Appearance: Elderly obese lady lying in bed in NAD. Eyes: No Scleral Icterus Ears/Nose/Mouth/Throat: Mucous Membranes Moist Neck: Trachea Midline Respiratory: Symmetrical Chest Expansion and Respiratory Effort, Clear to Auscultation Cardiovascular: RRR - Normal S1 and S2 Abdominal: NL Sounds; No Tenderness; No Distention - obese Extremities: - - trace bilateral LE edema Neurological: - - AAOx1 (self), PRICE Lines/Tubes/Other Access: Clean, Dry and Intact Peripheral IV Nutrition: Taking PO's Result Diagrams: 10/31/16 09:21 10/31/16 09:21 Assess/Plan/Problems-Billing Assessment: Mrs. Workman is an 86yo F with PMH of CAD s/p angioplasty and 4 vessel CABG in 1999, HTN, type 2 DM, HLD, obesity, Parkinson's disease, dementia, recent admission for chest pain, who presented to ED with further episodes of chest pain, found to have NSTEMI. - Patient Problems (1) NSTEMI (non-ST elevated myocardial infarction) Comment: - Stress test showed large inferolateral infarct with suggestion of mild carlee-infarct ischemia. - Continue Aspirin, metoprolol, statin, amlodipine in AM and nitro patch QHS. (2) Diabetes Comment: - Continue Lispro SS. (3) HTN (hypertension) Comment: - Continue Metoprolol and Lisinopril. - Will continue to monitor BP, but may need to increase Amlodipine. (4) Parkinsonism Comment: - Continue Carbidopa/Levodopa. (5) DVT prophylaxis Comment: - SQ Heparin. (6) DNR (do not resuscitate) Status and Disposition: Inpatient. Continue to monitor with new regimen, but if she remains asymptomatic , anticipate d/c in AM.
[2016-10-31] MEDS: Atorvastatin* 40 MG TAB PO SCH (18:14)
[2016-10-31] MEDS: Nitroglycerin 0.4 MG/HR PATCH* (10 MG) TRANSDERM SCH (21:21)
[2016-11-01] MEDS: Heparin VIAL(*) 5000 UNITS/ML VIAL (FIVE THOUSAND) SUBCUT SCH ×3 (06:27→20:04)
[2016-11-01] MEDS: Carbidopa/Levodop 25/100 MG TAB(*) PO SCH ×5 (06:27→20:04)
[2016-11-01] MEDS: Insulin LISPRO* 1 UNITS UNIT SUBCUT SCH ×3 (10:26→17:18)
[2016-11-01] MEDS: Aspirin Low Dose CHEW TAB* 81 MG PO SCH ×2 (12:46→13:29)
[2016-11-01] MEDS: Lisinopril TAB* 10 MG PO SCH ×2 (12:46→13:29)
[2016-11-01] MEDS: amLODIPine TAB* 5 MG PO SCH ×2 (12:46→13:28)
[2016-11-01] MEDS: Potassium Chlor TAB* 10 MEQ TAB.ER PO SCH ×2 (12:46→13:30)
[2016-11-01] MEDS: Metoprolol Tartrate TAB* 25 MG PO SCH ×3 (12:46→19:48)
[2016-11-01] MEDS ORDERED: hydrALAZINE IV* 20 MG/ML VIAL IV SLOW PU PRN (12:50)
[2016-11-01 13:40] LABS: Hematocrit 39 % (35-47); Hemoglobin 12.8 g/dl (12.0-16.0); Mean Corpuscular HGB Conc 33 g/dl (31-36); Mean Corpuscular Hemoglobin 29 pg (27-31); Mean Corpuscular Volume 89 fL (80-97); Mean Platelet Volume 10 um3 (7.4-10.4); Red Blood Count 4.42 10^6/ul (4.0-5.4); Red Cell Distribution Width 15 % (10.5-15); White Blood Count 4.8 10^3/ul (3.5-10.8)
[2016-11-01 13:57] LABS: Albumin 3.5 g/dL (3.2-5.2); BUN/Creatinine Ratio 17.1 (8-20); Calcium 9.6 mg/dL (8.6-10.3); EGFR African American 63.8 (>60); EGFR Non-African American 49.6 (>60); Globulin 3.5 g/dL (2-4); Total Bilirubin 0.6 mg/dL (0.2-1.0)
[2016-11-01] MEDS: Nitro Patch/OINT Remove PATCH OFF SCH (13:58)
[2016-11-01] MEDS: Atorvastatin* 40 MG TAB PO SCH (17:18)
--- NOTE | 2016-11-01 17:22 | PN ---
Subjective Date of Service: 11/01/16 Interval History: HOSPITALIST PROGRESS NOTE Patient seen and examined at bedside. She offers no complaints. Did not sleep much last night and was very sleepy this AM. I called her daughter who came to help with medications but we were not able to give her any of her meds until after lunch, and at that point her BP was very elevated. Family History: Unchanged from Admission Social History: Unchanged from Admission Past Medical History: Unchanged from Admission Objective Active Medications: Acetaminophen (Tylenol Tab*) 650 mg PO Q4H PRN PRN Reason: FEVER/PAIN Amlodipine Besylate (Norvasc Tab*) 10 mg PO DAILY [facility] Last Admin: 11/01/16 13:28 Dose: 10 mg Aspirin (Aspirin Low Dose Tab*) 81 mg PO DAILY [facility] Last Admin: 11/01/16 13:29 Dose: 81 mg Atorvastatin Calcium (Lipitor*) 40 mg PO 1700 [facility] Last Admin: 10/31/16 18:14 Dose: 40 mg Carbidopa/Levodopa (Sinemet 25/100 Tab(*)) 0.5 tab PO 1200,2200 [facility] Last Admin: 11/01/16 13:53 Dose: 0.5 tab Carbidopa/Levodopa (Sinemet 25/100 Tab(*)) 1 tab PO 0600,1700 [facility] Last Admin: 11/01/16 06:27 Dose: 1 tab Dextrose (D50w Syringe 50 Ml*) 12.5 gm IV PUSH .FOR FS < 60 - SS PRN PRN Reason: FS < 60 Docusate Sodium (Colace Cap*) 200 mg PO BEDTIME PRN PRN Reason: CONSTIPATION Heparin Sodium (Porcine) (Heparin Vial(*)) 5,000 units SUBCUT Q8HR [facility] Last Admin: 11/01/16 13:57 Dose: 5,000 units Hydralazine HCl (Apresoline Iv*) 5 mg IV SLOW PU Q6H PRN PRN Reason: SBP>180 Insulin Human Lispro (Humalog*) 0 units SUBCUT AC [facility] PRN Reason: Protocol Last Admin: 11/01/16 13:57 Dose: 3 unit Lisinopril (Prinivil Tab*) 40 mg PO DAILY [facility] Last Admin: 11/01/16 13:29 Dose: 40 mg Metoprolol Tartrate (Lopressor Tab*) 12.5 mg PO Q12HR [facility] Last Admin: 11/01/16 13:30 Dose: 12.5 mg Nitroglycerin (Nitroglycerin 10 Mg Patch*) 1 patch TRANSDERM BEDTIME [facility] Last Admin: 10/31/16 21:21 Dose: 1 patch Ondansetron HCl (Zofran Inj*) 4 mg IV Q6H PRN PRN Reason: NAUSEA Pharmacy Profile Note (Nitro Patch/Oint Remove*) 1 note PATCH OFF 0900 [facility] Last Admin: 11/01/16 13:58 Dose: 1 patch Polyethylene Glycol/Electrolytes (Miralax*) 17 gm PO Q72H PRN PRN Reason: CONSTIPATION Potassium Chloride (Klor Con Er Tab*) 20 meq PO DAILY [facility] Last Admin: 11/01/16 13:30 Dose: 20 meq Senna (Senokot Tab*) 2 tab PO BEDTIME PRN PRN Reason: CONSTIPATION Vital Signs 11/01/16 11/01/16 11:20 15:23 Temperature 98.0 F 97.8 F Pulse Rate 55 55 Respiratory 18 Rate Blood Pressure 182/64 145/59 (mmHg) O2 Sat by Pulse 97 98 Oximetry Oxygen Devices in Use Now: None Appearance: Elderly lady lying in bed in [facility]. Eyes: No Scleral Icterus Ears/Nose/Mouth/Throat: Mucous Membranes Moist Neck: Trachea Midline Respiratory: Symmetrical Chest Expansion and Respiratory Effort, Clear to Auscultation Cardiovascular: RRR - Normal S1 and S2 Abdominal: NL Sounds; No Tenderness; No Distention Neurological: - - Initially sleeping, but later on was awake an taking meds, interacting with family Nutrition: Taking PO's Result Diagrams: 11/01/16 13:32 11/01/16 13:32 Assess/Plan/Problems-Billing Assessment: Mrs. Workman is an 86yo F with PMH of CAD s/p angioplasty and 4 vessel CABG in 1999, HTN, type 2 DM, HLD, obesity, Parkinson's disease, dementia, recent admission for chest pain, who presented to ED with further episodes of chest pain, found to have NSTEMI. - Patient Problems (1) Comment: - Supportive care. - Family will encourage patient to stay awake during the day, so she can sleep and rest at night. (2) NSTEMI (non-ST elevated myocardial infarction) Comment: - Stress test showed large inferolateral infarct with suggestion of mild carlee-infarct ischemia. - Continue Aspirin, metoprolol, statin, amlodipine in AM and nitro patch QHS. (3) Diabetes Comment: - Continue Lispro SS. (4) HTN (hypertension) Comment: - Continue Metoprolol, Lisinopril, and Amlodipine. - BP was uncontrolled today because she did not take her meds, but now numbers are trending down. (5) Parkinsonism Comment: - Continue Carbidopa/Levodopa. (6) DVT prophylaxis Comment: - SQ Heparin. (7) DNR (do not resuscitate) Status and Disposition: Inpatient. Anticipate d/c in AM.
[2016-11-01] MEDS: Nitroglycerin 0.4 MG/HR PATCH* (10 MG) TRANSDERM SCH (19:46)
[2016-11-02] MEDS: Heparin VIAL(*) 5000 UNITS/ML VIAL (FIVE THOUSAND) SUBCUT SCH (05:30)
[2016-11-02] MEDS: Carbidopa/Levodop 25/100 MG TAB(*) PO SCH (07:16)
[2016-11-02 08:29] VITALS: BP 135/55
[2016-11-02] MEDS: Aspirin Low Dose CHEW TAB* 81 MG PO SCH (08:37)
[2016-11-02] MEDS: Metoprolol Tartrate TAB* 25 MG PO SCH (08:37)
[2016-11-02] MEDS: Insulin LISPRO* 1 UNITS UNIT SUBCUT SCH (08:37)
[2016-11-02] MEDS: Lisinopril TAB* 10 MG PO SCH (08:37)
[2016-11-02] MEDS: amLODIPine TAB* 5 MG PO SCH (08:38)
[2016-11-02] MEDS: Nitro Patch/OINT Remove PATCH OFF SCH (08:38)
[2016-11-02] MEDS: Potassium Chlor TAB* 10 MEQ TAB.ER PO SCH (08:39)
--- NOTE | 2016-11-02 10:20 | DS ---
CC: Dr. James; Dr. Churchill DISCHARGE SUMMARY: DATE OF ADMISSION: 10/28/16 DATE OF DISCHARGE: 11/02/16 DISCHARGE DIAGNOSES: 1. Non-ST elevation myocardial infarction. 2. Sundowning. SECONDARY DIAGNOSES: 1. Coronary artery disease, status post angioplasty and 4-vessel CABG in 1999. 2. Hypertension. 3. Type 2 diabetes. 4. Hyperlipidemia. 5. Obesity. 6. Parkinson's disease. 7. Dementia. MEDICATION LIST: 1. Lactic acid 12% topical lotion at bedtime as needed for dry skin. 2. Carbidopa and levodopa 25/100 mg 1 tablet at 6 a.m. and 5 p.m., half a tablet at noon and 10 p.m . 3. Senna Plus 2 tablets p.o. at bedtime as needed for constipation. 4. Artificial tears 1 drop to both eyes b.i.d. as needed for dry eye. 5. Cholecalciferol 50,000 units p.o. q.30 days. 6. MiraLAX 17 mg p.o. q.72 hours p.r.n. constipation. 7. Potassium chloride 10 mEq p.o. daily. 8. Lisinopril 40 mg p.o. daily. 9. Aspirin 81 mg p.o. daily. 10. Nystatin powder on the breast area b.i.d. 11. Nitroglycerin 0.4 mg sublingual q.5 minutes p.r.n. chest pain. 12. Lispro sliding scale a.c., h.s. as follows: Finger sticks 131 to 150 one unit, 151 to 200 thre e units, 201 to 250 four units, 251 to 300 six units, 301 to 350 eight units, 351 to 400 ten units, greater than 400 call MD. NEW MEDICATIONS: 1. Nitroglycerin patch 0.4 mg an hour, apply patch at bedtime and remove at 9 a.m. 2. Metoprolol tartrate 12.5 mg p.o. q.12 hours. 3. Atorvastatin 40 mg p.o. at 5 p.m. 4. Amlodipine 10 mg p.o. daily. HOSPITAL COURSE: Ms. Workman is an 86-year-old female known to me from a prior admission from 09/28 to 10/18/16. At that time, the patient presented with chest pain that was felt to be cardiac i n nature, but her family was reluctant to pursue any further workup. They were not interested in st ress test at that time and decision was made to pursue medical management. The family was concerned with addition of multiple medications at the same time as the patient had several reactions to diff erent medications in the past. So, after discussing multiple options, decision was to add nitrates to the patient's regimen and to escalate her treatment as outpatient if her symptoms persisted. On 10/28/16, she was sent back to the emergency room after other episodes of chest pain. The patien t had been started on an isosorbide dinitrate due to recurrent episodes of chest pain, but it seemed like her episodes were escalating, so she was sent to the emergency room for further evaluation. This time, the patient's troponin was elevated up to 0.18. She was diagnosed with non-ST elevation AL and started on a heparin drip. Medical management was continued with aspirin and statin, beta bl ocker were added on top of anticoagulation with heparin. I had a long conversation with the patient's family, and after reviewing risks and benefits, they we re agreeable with Cardiology evaluation and stress test. The patient was seen in consultation by Dr. Churchill and he was in agreement that the best option was f or the patient to undergo a chemical nuclear stress test for evaluation. If the stress test showed lower intermediate risk, the plan was to continue medical therapy. If the stress test has a high ri sk component to it, further discussions would be entertained with her family regarding further care. The patient's stress test was a limited exam due to arrhythmia precluding gating for a motion study and absence of CT for attenuation correction, but it showed a large inferolateral infarct with sugg estion of mild carlee-infarct ischemia, most prominent at the apical inferior segment. The patient was seen in followup by Dr. Kingston and she felt that the patient's chest pain should be treated as angina as her stress test suggests occluded circumflex with possible collateral flow. S he talked to the patient's daughter and she was in agreement with a more aggressive medical manageme nt. So, her recommendation was to add amlodipine during the day and to convert her isosorbide to a nitro patch at bedtime. The plan is to continue aspirin and starting a beta kelly, and if the pat ient's still has symptoms in future, the next option, Ranexa would be the next drug to be added. Dr Trinity Kingston felt there was differential of hibernating myocardium and maybe as an outpatient if she continues to have further chest pain, a viability study could be performed. The patient was found t o have very mild anemia with a hemoglobin of 11.7, that at this point is already back up to 12.8. Amita Kingston felt that maybe if anemia persists, the patient will need workup done as outpatient as in the future she may require invasive measures, and if she develops significant anemia that could pre clude stenting, but I believe at this point with H and H of 12.8/39, anemia workup is not indicated, but her H and H could certainly be monitored as outpatient. Dr. Kingston also felt that GERD was in the differential diagnosis as the patient has most of her sym ptoms at night. While in the hospital, she had no further episodes of chest pain, but if she contin ues to have symptoms at night consideration for adding a PPI could be entertained. At this point, caleb montelongo have already added many new medications to her regimen, so I rather see how she responds to this a nd then if needed a PPI could be tried in the future. Dr. Kingston recommended followup with Dr. Miguel Angel pichardo in 1 to 2 weeks. The patient tolerated her new regimen well. She developed some asymptomatic bradycardia, so we kept her metoprolol dose on the lower side, but her blood pressure was still uncontrolled. So, we incre ased her amlodipine from 5 to 10 mg. The patient developed sundowning while at the hospital (the same thing happened during her prior adm ission) and sometimes it was difficult to give her, her medications on time, what would cause her bl ood pressure to spike, but today she has taken all her meds, vital signs are normal and she is felt to be stable to return to [facility] at this time. PHYSICAL EXAMINATION: Vital Signs: Temperature 97.5, heart rate is 67, respiratory rate is 16, oxy gen saturation is 100% on room air, blood pressure is 135/55. General: The patient is a pleasantly confused elderly lady lying in the bed, in no acute distress. CVS: Normal S1, S2, regular rate an d rhythm. Chest: Breath sounds present bilaterally with no added sounds. Abdomen: Obese, soft, no ntender, bowel sounds are present. Extremities: There is no edema, but the patient has chronic isc hemic changes. Neuro: She is alert, awake, oriented to self only, able to move all 4 extremities. DIET: Heart healthy, consistent carb diet, avoid excessive caffeine. ACTIVITIES: As tolerated. DISPOSITION: To [facility]. STATUS WHILE IN THE HOSPITAL: Inpatient. Please keep in mind this is a summarized version of this patient's hospital stay. If you need more i nformation, please do not hesitate to call me at [phone] or please obtain full medical records. TIME SPENT: Approximately 50 minutes was spent to complete this discharge. [id number]/CPS #: [id number]
== END 2016-11-02 11:40 | DRG 281 ==
LOC: ED 15:00 → MEDTELE 17:31
PROVIDERS: ADMIT Internal Medicine; ATTEND Internal Medicine
DX: I21.4 Non-ST elevation (NSTEMI) myocardial infarction (principal); F05 Delirium due to known physiological condition; G20 Parkinson's disease; I25.10 Atherosclerotic heart disease of native coronary artery without angina pectoris; I10 Essential (primary) hypertension; E11.9 Type 2 diabetes mellitus without complications; Z66 Do not resuscitate; E78.5 Hyperlipidemia, unspecified; E66.9 Obesity, unspecified; F02.80 Dementia in other diseases classified elsewhere, unspecified severity, without behavioral disturbance, psychotic disturbance, mood disturbance, and anxiety; M19.90 Unspecified osteoarthritis, unspecified site; Z79.4 Long term (current) use of insulin; Z95.5 Presence of coronary angioplasty implant and graft; Z79.82 Long term (current) use of aspirin
CPT/HCPCS: 36415; 71010; 78452; 80048; 80053; 80061; 82140; 83036; 83605; 83880; 84484; 84520; 85025; 85060; 85730; 93005; 93017; A9270-GY; A9502; J0280; J1644; J2785

== ENCOUNTER 2016-11-16 08:19 | Inpatient (IN) | payer MEDICARE, MEDICAID ==
[2016-11-16] MEDS ORDERED: NS 0.9% 1000 ML* 1,000 ML IV ONE (08:44)
[2016-11-16] MEDS ORDERED: Ondansetron INJ* 2 MG/ML VIAL IV ONE (08:44)
[2016-11-16 10:21] LABS: Hematocrit 42 % (35-47); Hemoglobin 13.8 g/dl (12.0-16.0); Mean Corpuscular HGB Conc 33 g/dl (31-36); Mean Corpuscular Hemoglobin 29 pg (27-31); Mean Corpuscular Volume 89 fL (80-97); Mean Platelet Volume 10 um3 (7.4-10.4); Red Blood Count 4.73 10^6/ul (4.0-5.4); Red Cell Distribution Width 16 % (10.5-15); White Blood Count 9.9 10^3/ul (3.5-10.8)
[2016-11-16 10:36] LABS: ALT 7 U/L (7-52); Albumin 3.8 g/dL (3.2-5.2); Alkaline Phosphatase 73 U/L (34-104); Amylase 26 U/L (29-103); BUN/Creatinine Ratio 27.8 (8-20); Blood Urea Nitrogen 32 mg/dL (6-24); C Reactive Protein 16.93 mg/L (< 5.00); CO2 Carbon Dioxide 25 mmol/L (22-32); Calcium 10.8 mg/dL (8.6-10.3); Chloride 101 mmol/L (101-111); EGFR African American 57.4 (>60); EGFR Non-African American 44.6 (>60); Globulin 3.9 g/dL (2-4); Glucose 90 mg/dL (70-100); Lipase < 10 U/L (11.0-82.0); Sodium 136 mmol/L (133-145); Total Protein 7.7 g/dL (6.4-8.9)
[2016-11-16 10:38] LABS: Troponin I 0.03 ng/mL (<0.04)
[2016-11-16 10:42] LABS: AST 18 U/L (13-39); Anion Gap 10 mmol/L (2-11); Potassium 4.6 mmol/L (3.5-5.0)
--- NOTE | 2016-11-16 10:43 | RAD ---
Indication: Nausea and vomiting. Comparison: April 02, 2007 CT. Technique: Supine and LEFT lateral decubitus abdomen views. Report: No free air evident. Moderately large volume of stool at the sigmoid colon and rectum with rectal distention. Mildly dilated small bowel loops with air-fluid levels. No suspicious calcifications or mass effect. Median sternotomy wires and gallbladder fossa level surgical clips noted. No gross abnormality of the soft tissue contours. IMPRESSION: Partial versus complete small bowel obstruction. Large volume of stool in the rectosigmoid with rectal distention. Negative for free air.
[2016-11-16] MEDS ORDERED: Artificial Tears* 15 ML BTL BOTH EYES PRN (14:07)
[2016-11-16] MEDS ORDERED: PROCHLORPERAZINE INJ 5 MG/ML 2 ML VIAL IV PRN (14:08)
[2016-11-16] MEDS ORDERED: Ondansetron INJ* 2 MG/ML VIAL IV PRN (14:08)
[2016-11-16] MEDS ORDERED: Morphine INJ* 2 MG/ML 1 ML SYRINGE IV PRN ×2 (14:08→14:10)
[2016-11-16] MEDS ORDERED: Acetaminophen SUPP* 650 MG SUPP PR PRN (14:08)
[2016-11-16] MEDS ORDERED: Iodixanol* (CONTRAST) 320 MG/ML 100 ML SDV IV ONE (14:09)
[2016-11-16] MEDS ORDERED: Sodium Phosphate ADULT ENEMA* 118 ml bottle PR ONE (14:10)
[2016-11-16] MEDS ORDERED: Dextrose 50% Syringe 50 ML* 25 GM/50 ML SYRINGE IV PUSH PRN (14:11)
[2016-11-16] MEDS ORDERED: hydrALAZINE IV* 20 MG/ML VIAL IV SLOW PU PRN (14:27)
--- NOTE | 2016-11-16 15:06 | RAD ---
INDICATION: Nausea and vomiting. Post cholecystectomy. COMPARISON: Abdomen radiographs of the same date and April 02, 2007 CT. TECHNIQUE: Multidetector CT images were obtained from the lung bases to the ischial tuberosities with 121 mL Visipaque 320 IV and oral contrast. Multiplanar reformation. REPORT: Mild to moderate bilateral dependent subsegmental atelectasis at the lung bases. Cardiomegaly and coronary artery calcifications. Post cholecystectomy likely accounting for minimal prominence of the intra and extrahepatic bile ducts. No focal hepatic lesions evident. Advanced fatty replacement of the pancreas without suspicious CT finding. Unremarkable spleen. Unremarkable upper GI. Long segment mild dilatation of the jejunum and ilium measuring up to 3.4 cm diameter with air-fluid levels. No narrow transition zone visualized. The distal and terminal ileum are decompressed. Moderate stool throughout the colon with moderate rectal distention with gas and stool. Severe diverticulosis at the sigmoid colon without findings of diverticulitis. Negative for ascites, free air, hernias. Normal adrenal glands. Variant horseshoe morphology kidney. No focal renal lesions or hydronephrosis. Negative for ureteral dilatation. Unremarkable partially distended urinary bladder. The uterus is not visualized and may be atrophied or resected. Unremarkable adnexal regions. Negative for lymphadenopathy. Moderately severe atherosclerotic plaque without aneurysm of the abdominal aorta or iliac arteries. Largely decompressed inferior vena cava indicating low volume state. Diffuse degenerative arthropathy. Negative for suspicious focal osseous lesions. IMPRESSION: 1. The constellation of findings may reflect ileus or partial small bowel obstruction. 2. Negative for ascites or free air. 3. Post cholecystectomy. 4. 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 5. Peripheral vascular disease. Negative for aneurysm of the abdominal aorta.
[2016-11-16] MEDS: NS 0.9% w/ 40 Meq KCL 1000 ML* 1,000 ML IV SCH (15:56)
--- NOTE | 2016-11-16 17:37 | HP ---
CC: Dr. Jason James, [facility] HISTORY AND PHYSICAL: DATE OF ADMISSION: 11/16/16 TIME OF EVALUATION: 1:45 p.m. PRIMARY CARE PROVIDER: Dr. Jason James. CHIEF COMPLAINT: "My belly is not good." HISTORY OF PRESENT ILLNESS: Ms. Workman is an 86-year-old lady well known to me from prior admissions with past medical history of coronary artery disease status post recent non ST-elevation HI, hypertension, type 2 diabetes, hyperlipidemia, obesity, Parkinson's disease, and dementia, who presents to the emergency room with complaints of abdominal pain. Due to her dementia, the patient is a poor historian, so most of the information is obtained from her records and from a call to [facility]. The patient was doing initially well after her discharge from [facility] back to [facility] with good p.o. intake, interacting with other residents. On , she was found unresponsive and was found to have a blood glucose of 65. Yesterday, the patient was not able to take her oral medication due to "not feeling well." She was medicated with glucagon for her hypoglycemia. She did have some dinner last night. Fingerstick was too low around 72. This morning, the patient had episodes of emesis, could not take anything by mouth, refused to take her pills. Blood sugar was 108. Vital signs were stable and she was referred to the emergency room for further evaluation. As per [facility] nurse, her last bowel movement was 2 days ago, a large formed bowel movement with no blood. The patient is unable to provide further information at this point. She states that her belly does not hurt now, but it does not feel well. In her words "she feels lousy." PAST MEDICAL HISTORY: 1. Coronary artery disease, status post angioplasty and 4-vessel CABG in 1999 and recent admission in mid October with a non ST-elevation HI. 2. Hypertension. 3. Type 2 diabetes. 4. Hyperlipidemia. 5. Osteoarthritis. 6. Obesity. 7. Parkinson's disease. 8. Dementia. MEDICATION LIST: 1. Amlodipine 10 mg p.o. daily. 2. Artificial tears 1 drop to both eyes twice a day as needed for dry eye. 3. Aspirin 81 mg p.o. daily. 4. Atorvastatin 40 mg p.o. daily. 5. Carbidopa and levodopa 25/100 half a tablet at noon and 10 p.m., 1 tablet at 6 a.m. and 5 p.m. 6. Cholecalciferol 50,000 units p.o. q.30 days on the of every month. 7. NovoLog 70/30, 30 units subcutaneously in the morning and 15 units subcutaneously at bedtime. 8. Isosorbide dinitrate 10 mg p.o. four times a day. 9. Lactic acid 12% topical at bedtime as needed for dry skin. 10. Lisinopril 40 mg p.o. daily. 11. Metoprolol tartrate 12.5 mg p.o. q.12 hours. 12. Nitro patch 0.4 mg an hour topical at bedtime. 13. Nitroglycerin 0.4 mg sublingual q.5 minutes p.r.n. chest pain. 14. Nystatin powder to affected areas b.i.d. 15. MiraLAX 17 g p.o. q.72 hours as needed for constipation. 16. Potassium chloride 20 mEq p.o. daily. 17. Senna Plus 2 tablets p.o. at bedtime as needed for constipation. ALLERGIES: The patient had unknown reactions to AMPHETAMINE, CAFFEINE, CARISOPRODOL, CODEINE, ERYTHROMYCIN, FLUOROURACIL, HYDROCHLOROTHIAZIDE, IBUPROFEN, LEVOFLOXACIN, MACROLIDE, METAXALONE, NITROFURANTOIN, PENICILLIN, SULFA DRUGS. FAMILY HISTORY: Unable to obtain from the patient due to her dementia. SOCIAL HISTORY: No history of tobacco, alcohol, or drug use. She lives at [facility]. Surrogate decision maker is her daughter, Janet Sandoval, phone number is [phone]. REVIEW OF SYSTEMS: Unable to obtain from the patient due to her dementia. PHYSICAL EXAMINATION GENERAL: The patient is an elderly lady lying on the ER stretcher, in no acute distress. VITAL SIGNS: Temperature 98.0, heart rate is 72, respiratory rate is 19, oxygen saturation 97% on room air, blood pressure is 158/57. HEENT: Pupils are equal. Dry mucous membranes. CHEST: Breath sounds present bilaterally with no added sounds. CVS: Normal S1 and S2. Regular rate and rhythm. ABDOMEN: Very distended, nontender. The bowel sounds are decreased. EXTREMITIES: Mild bilateral lower extremity edema and chronic skin changes unchanged from before. NEURO: She is alert, awake, and oriented to self only. She has right upper extremity tremors unchanged from prior. She is able to move all 4 extremities. DIAGNOSTIC STUDIES/LAB DATA: The patient had a CBC that showed a WBC of 9.9, hemoglobin of 13.8, hematocrit of 42, platelets of 173 with 79% neutrophils. Chemistry showed sodium 136, potassium 4.6, chloride of 101, bicarb of 25, BUN of 32, creatinine of 1.15, glucose of 90, lactic acid is 1.3, calcium is 10.8. LFTs are normal. CRP is 16.9. Amylase is 26 and lipase is less than 10. Abdomen x-ray showed partial versus complete small-bowel obstruction with large volume of stool in the rectosigmoid with rectal distention, no free air. EKG showed sinus rhythm at 73 beats per minute with left anterior fascicular block. No significant change when compared to her prior EKG from 10/29/16. ASSESSMENT AND PLAN: Ms. Workman is an 86-year-old lady with past medical history of coronary artery disease, hypertension, type 2 diabetes, hyperlipidemia, osteoarthritis, obesity, Parkinson's disease, and dementia, who presents to the emergency room with complaints of abdominal pain, nausea, and vomiting, found to have a small-bowel obstruction and constipation. 1. Small-bowel obstruction. The patient is status post cholecystectomy and her daughter believes she is also status post hysterectomy, although I cannot confirm this information on her record. The plan is to admit her to the medical floor and she is trying to drink the contrast to have the CT of the abdomen and pelvis. I discussed the approach with her daughter, Janet, and she is in agreement with NG tube to low wall suction, as the patient continues to vomit and also with an enema as the patient seems to have a large amount of stool in her rectosigmoid. The patient will be kept NPO. She will receive IV hydration and symptomatic treatment. If she does not respond to NG tube/enemas, we will get a surgical consultation. 2. Type 2 diabetes. The patient was on NovoLog 70/30 at the assisted, but due to poor oral intake, she has developed hypoglycemia. For now, she is going to be NPO. We are going to check her glucose q.4 hours and she will receive a low-dose lispro sliding scale if necessary. 3. Coronary artery disease. The patient has no complaints of chest pain at this time. No new EKG changes and her troponin is negative. At this point, I have to hold all her oral medications due to the bowel obstruction. We are going to continue her nitro patch and try to resume her oral medications as soon as possible. 4. Parkinson's disease. Her Sinemet is on hold for now, but if we are able to put a NG tube, we would be able to give her this medication through the tube. Her tremors are unchanged at this point. 5. DVT prophylaxis. The patient has a score of 4 on a DVT Prophylaxis Risk Assessment Guide and she will be started on subcutaneous heparin. 6. Code status. The patient is a do not resuscitate. TIME SPENT: Approximately 65 minutes was spent with patient and family interview, medical records review, physical examination to complete this admission, more than half of this time was spent [id number] with the patient and coordination of care. [id number]/[facility] #: [id number] LIBRADO
--- NOTE | 2016-11-16 17:53 | RAD ---
Indication: Nasogastric tube placement. Cardiac disease. Small bowel obstruction. Comparison: Abdomen CT of the same date. October 28, 2016 chest radiograph. Technique: Upright AP 1730 hours Report: Mild consolidation at the LEFT lung base new compared with the prior exam may represent atelectasis or pneumonia. Negative for pleural effusion or pneumothorax. Postsurgical change of coronary artery bypass. Cardiomegaly. Unremarkable central pulmonary vasculature. Nasogastric tube passes to the stomach with the tip at level of the gastric body. IMPRESSION: 1. Mild consolidation at the LEFT lung base may represent atelectasis or pneumonia. 2. Tip of nasogastric tube at level of the gastric body.
[2016-11-16] MEDS: Insulin LISPRO* 1 UNITS UNIT SUBCUT SCH ×2 (17:58→22:32)
[2016-11-16] MEDS ORDERED: Mineral Oil ENEMA* 1 BOTTLE PR PRN (18:14)
--- NOTE | 2016-11-16 18:22 | ED ---
Melly Resendez SooYoung, scribed for David Reyes MD on 11/16/16 at 0845 . Complex/Multi-Sys Presentation - HPI Summary HPI Summary: LEVEL 5 CAVEAT - DEMENTIA. An 86 y/o F BIBA from [facility] presents to ED with hypoglycemia and further evaluation. Pt does not know the date or month. She denies pain, but states she' s "uncomfortable." Report from retirement states pt is not eating, has been vomiting, has low blood sugar. Per EMS report: pt is not vomiting. Pert PMHx: dementia, DMII. - History Of Current Complaint Chief Complaint: EDGeneral Time Seen by Provider: 11/16/16 08:32 Hx Obtained From: Patient, Family/Paramedic Supervisor - family present, EMS, Medical Records Hx From Patient Unobtainable Due To: Dementia - Allergies/Home Medications Allergies/Adverse Reactions: Allergies Allergy/AdvReac Type Severity Reaction Status Date / Time Amphetamine Allergy Unknown Verified 11/16/16 14:18 Reaction Details Caffeine Allergy Unknown Verified 11/16/16 14:18 Reaction Details Carisoprodol Allergy Unknown Verified 11/16/16 14:18 Reaction Details Codeine Allergy Unknown Verified 11/16/16 14:18 Reaction Details Erythromycin Allergy Unknown Verified 11/16/16 14:18 [From Erythrocin Stearate] Reaction Details Fluorouracil [From Efudex] Allergy Unknown Verified 11/16/16 14:18 Reaction Details Hydrochlorothiazide Allergy Unknown Verified 11/16/16 14:18 Reaction Details Ibuprofen Allergy Unknown Verified 11/16/16 14:18 Reaction Details Levofloxacin [From Levaquin] Allergy Unknown Verified 11/16/16 14:18 Reaction Details Macrolides Allergy Unknown Verified 11/16/16 14:18 Reaction Details Metaxalone [From Skelaxin] Allergy Unknown Verified 11/16/16 14:18 Reaction Details Nitrofurantoin Allergy Unknown Verified 11/16/16 14:18 [From Macrobid] Reaction Details Penicillins Allergy Unknown Verified 11/16/16 14:18 Reaction Details Sulfa Drugs Allergy Unknown Verified 11/16/16 14:18 Reaction Details Home Medications: Home Medications Insulin Aspart Protamine & Asp [Novolog Mix 70/30 (70-30) 100 Unit/ml] 15 units SUBCUT BEDTIME 11/16/16 [History Confirmed 11/16/16] Insulin Aspart Protamine & Asp [Novolog Mix 70/30 (70-30) 100 Unit/ml] 30 units SUBCUT QAM 11/16/16 [History Confirmed 11/16/16] Isosorbide Dinitrate TAB* [Isordil TAB*] 10 mg PO QID 11/16/16 [History Confirmed 11/16/16] PMH/Surg Hx/FS Hx/Imm Hx Previously Healthy: No Endocrine/Hematology History: Reports: Hx Diabetes Denies: Hx Anticoagulant Therapy, Hx Systemic Lupus Erythematosus, Hx Thyroid Disease Cardiovascular History: Reports: Hx Hypercholesterolemia, Hx Hypertension, Other Cardiovascular Problems/Disorders - Quadruple bypass Surgery Denies: Hx Congestive Heart Failure, Hx Pacemaker/ICD Respiratory History: Reports: Hx Pneumonia Denies: Hx Asthma, Hx Chronic Obstructive Pulmonary Disease (COPD) GI History: Reports: Hx Diverticulosis, Hx Gall Bladder Disease History: Denies: Hx Dialysis, Hx Renal Disease Musculoskeletal History: Reports: Hx Back Problems Denies: Hx Rheumatoid Arthritis Sensory History: Reports: Hx Contacts or Glasses, Hx Deafness, Hx Hearing Problem - hard of hearing Denies: Hx Hearing Aid Opthamlomology History: Reports: Hx Contacts or Glasses Neurological History: Reports: Hx Dementia Denies: Hx Developmental Delay, Hx Headaches, Hx Migraine, Hx Nerve Disease, Hx Seizures, Hx Spinal Cord Injury, Hx Transient Ischemic Attacks (TIA), Other Neuro Impairments/Disorders Psychiatric History: Denies: Hx Substance Abuse - Cancer History Hx Chemotherapy: No - Surgical History Surgery Procedure, Year, and Place: laprascopic cholecystectomy, heart cath, quadruple bypass 1999, ruptured disc surgery 1997 Infectious Disease History: Denies: Hx Hepatitis, Hx Human Immunodeficiency Virus (HIV), Traveled Outside the in Last 30 Days - Family History Known Family History: Positive: Hypertension - Social History Occupation: Retired Lives: At [facility] Alcohol Use: None Hx Substance Use: No Substance Use Type: Reports: None Hx Tobacco Use: No Smoking Status (MU): Never Smoked Tobacco Review of Systems - ROS Summary Review of Systems Summary: LEVEL 5 CAVEAT - DEMENTIA Negative: Fever All Other Systems Reviewed And Are Negative: No Physical Exam - Summary Physical Exam Summary: VITAL SIGNS: Reviewed. GENERAL: Patient is a well-developed and nourished female who is lying comfortable in the stretcher. Patient is not in any acute respiratory distress. HEAD AND FACE: No signs of trauma. No ecchymosis, hematomas or skull depressions. No sinus tenderness. EYES: PERRLA, EOMI x 2, No injected conjunctiva, no nystagmus. EARS: Hearing grossly intact. Ear canals and tympanic membranes are within normal limits. MOUTH: Oropharynx within normal limits. NECK: Supple, trachea is midline, no adenopathy, no JVD, no carotid bruit, no c- spine tenderness, neck with full ROM. CHEST: Symmetric, no tenderness at palpation LUNGS: Clear to auscultation bilaterally. No wheezing or crackles. CVS: Regular rate and rhythm, S1 and S2 present, no murmurs or gallops appreciated. ABDOMEN: SOFT, NON-TENDER, DISTENDED. No rebound, no guarding, and no masses palpated. Bowel sounds are normal. EXTREMITIES: FROM in all major joints, no edema, no cyanosis or clubbing. BILAT LE WITH SOME ERYTHEMA. NEURO: ALERT BUT NOT ORIENTED. No acute neurological deficits. Speech is normal and follows commands. SKIN: Dry and warm Triage Information Reviewed: Yes Vital Signs On Initial Exam: Initial Vitals Temp Pulse Resp BP Pulse Ox 98 F 74 16 155/56 97 11/16/16 08:22 11/16/16 08:22 11/16/16 08:22 11/16/16 08:22 11/16/16 08:22 Vital Signs Reviewed: Yes Diagnostics - Vital Signs Vital Signs Temp Pulse Resp BP Pulse Ox 11/16/16 08:22 98 F 74 16 155/56 97 - Laboratory Lab Results: Lab Results 11/16/16 11/16/16 11/16/16 Range/Units 10:11 10:11 10:11 WBC 9.9 (3.5-10.8) 10^3/ul RBC 4.73 (4.0-5.4) 10^6/ul Hgb 13.8 (12.0-16.0) g/dl Hct 42 (35-47) % MCV 89 (80-97) fL MCH 29 (27-31) pg MCHC 33 (31-36) g/dl RDW 16 H (10.5-15) % Plt Count 173 (150-450) 10^3/ul MPV 10 (7.4-10.4) um3 Neut % (Auto) 79.5 (38-83) % Lymph % (Auto) 13.5 L (25-47) % Winkler % (Auto) 6.3 (1-9) % Eos % (Auto) 0.1 (0-6) % Baso % (Auto) 0.6 (0-2) % Absolute Neuts (auto) 7.8 H (1.5-7.7) 10^3/ul Absolute Lymphs (auto) 1.3 (1.0-4.8) 10^3/ul Absolute Monos (auto) 0.6 (0-0.8) 10^3/ul Absolute Eos (auto) 0 (0-0.6) 10^3/ul Absolute Basos (auto) 0.1 (0-0.2) 10^3/ul Absolute Nucleated RBC 0 10^3/ul Nucleated RBC % 0 Sodium 136 (133-145) mmol/L Potassium 4.6 (3.5-5.0) mmol/L Chloride 101 (101-111) mmol/L Carbon Dioxide 25 (22-32) mmol/L Anion Gap 10 (2-11) mmol/L BUN 32 H (6-24) mg/dL Creatinine 1.15 H (0.51-0.95) mg/dL Est GFR ( Amer) 57.4 (>60) Est GFR (Non-Af Amer) 44.6 (>60) BUN/Creatinine Ratio 27.8 H (8-20) Glucose 90 (70-100) mg/dL Lactic Acid (0.5-2.0) mmol/L Calcium 10.8 H (8.6-10.3) mg/dL Total Bilirubin 0.70 (0.2-1.0) mg/dL AST 18 (13-39) U/L ALT 7 (7-52) U/L Alkaline Phosphatase 73 (34-104) U/L Ammonia 28 (16-53) mol/L Troponin I 0.03 (<0.04) ng/mL C-Reactive Protein 16.93 H (< 5.00) mg/L Total Protein 7.7 (6.4-8.9) g/dL Albumin 3.8 (3.2-5.2) g/dL Globulin 3.9 (2-4) g/dL Albumin/Globulin Ratio 1.0 (1-3) Amylase 26 L (29-103) U/L Lipase < 10 L (11.0-82.0) U/L 11/16/16 Range/Units 10:11 WBC (3.5-10.8) 10^3/ul RBC (4.0-5.4) 10^6/ul Hgb (12.0-16.0) g/dl Hct (35-47) % MCV (80-97) fL MCH (27-31) pg MCHC (31-36) g/dl RDW (10.5-15) % Plt Count (150-450) 10^3/ul MPV (7.4-10.4) um3 Neut % (Auto) (38-83) % Lymph % (Auto) (25-47) % Winkler % (Auto) (1-9) % Eos % (Auto) (0-6) % Baso % (Auto) (0-2) % Absolute Neuts (auto) (1.5-7.7) 10^3/ul Absolute Lymphs (auto) (1.0-4.8) 10^3/ul Absolute Monos (auto) (0-0.8) 10^3/ul Absolute Eos (auto) (0-0.6) 10^3/ul Absolute Basos (auto) (0-0.2) 10^3/ul Absolute Nucleated RBC 10^3/ul Nucleated RBC % Sodium (133-145) mmol/L Potassium (3.5-5.0) mmol/L Chloride (101-111) mmol/L Carbon Dioxide (22-32) mmol/L Anion Gap (2-11) mmol/L BUN (6-24) mg/dL Creatinine (0.51-0.95) mg/dL Est GFR ( Amer) (>60) Est GFR (Non-Af Amer) (>60) BUN/Creatinine Ratio (8-20) Glucose (70-100) mg/dL Lactic Acid 1.3 (0.5-2.0) mmol/L Calcium (8.6-10.3) mg/dL Total Bilirubin (0.2-1.0) mg/dL AST (13-39) U/L ALT (7-52) U/L Alkaline Phosphatase (34-104) U/L Ammonia (16-53) mol/L Troponin I (<0.04) ng/mL C-Reactive Protein (< 5.00) mg/L Total Protein (6.4-8.9) g/dL Albumin (3.2-5.2) g/dL Globulin (2-4) g/dL Albumin/Globulin Ratio (1-3) Amylase (29-103) U/L Lipase (11.0-82.0) U/L Result Diagrams: 11/16/16 10:11 11/16/16 10:11 Lab Statement: Any lab studies that have been ordered have been reviewed, and results considered in the medical decision making process. - Radiology ABD XR Xray Interpretation: Positive (See Comments) - IMPRESSION: Partial versus complete small bowel obstruction. Large volume of stool in the rectosigmoid with rectal distention. Negative for free air. Radiology Interpretation Completed By: Radiologist - CT ABD/PEL CT Interpretation: Positive (See Comments) - IMPRESSION: 1. The constellation of findings may reflect ileus or partial small bowel obstruction. 2. Negative for ascites or free air. 3. Post cholecystectomy. 4. 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 CT Interpretation Completed By: Radiologist - EKG 0855 Cardiac Rate: NL - 73 bpm EKG Rhythm: Sinus Rhythm EKG Interpretation: RBBB, QIII, aVF, ST elevation III only one lead. Re-Evaluation - Re-Evaluation 1 Re-Evaluation Time: 11:37 Change: Unchanged Comment: Discussing results and pt's care with family now present. Daughter thinks pt had similar tests recently, perhaps a week or so ago, but is unsure. She notes that a different daughter is the pt's health care proxy. Complex Multi-Symp Course/Dx Course Of Treatment: HPI limited due to pt condition, dementia. Per retirement and EMS reports, pt was hypoglycemic this AM and not eating. Pt denies pain , states feeling "uncomfortable." Pt alert but not oriented. Blood work is without significant abnormalities except acute renal insufficiency and increased CRP. EKG shows NSR at 73 bpm with RBBB, QIII, aVF, ST elevation III only one lead. ABD XR shows "Partial versus complete small bowel obstruction. Large volume of stool in the rectosigmoid with rectal distention. Negative for free air.". Pt given fluids, Zofran in ED. Discussed case with Dr. Sosa, hospitalits, who accepted pt for admission. Decided to do ABD/PEL CT to pursue partial SBO vs full SBO. CT will be f/u by Dr. Sosa. Pt is hemodynamically stable and alert but not oriented. - Diagnoses Differential Diagnoses/HQI/PQRI: Other - Ileus, SBO, constipation Provider Diagnoses: Partial small bowel obstruction, Nausea and vomiting - Physician Notifications Discussed Care Of Patient With: Eldon Davey - surgery Time Discussed With Above Provider: 11:35 Instructed by Provider To: Other - Recommends do a UA and CT. Discharge - Discharge Plan Condition: Stable Disposition: ADMITTED TO [facility] Consult Consult: 1322: Consult with Dr. Sosa, hospitalist Agrees to admit pt, prior to CT results. The documentation as recorded by the Melly mcdonald SooYoung accurately reflects the service I personally performed and the decisions made by Eric avila Walter, MD.
[2016-11-16] MEDS: Nystatin TOP POWDER* 15 GM BTL TOPICAL SCH (22:34)
[2016-11-16] MEDS: Heparin VIAL(*) 5000 UNITS/ML VIAL (FIVE THOUSAND) SUBCUT SCH (22:34)
[2016-11-16] MEDS: Nitroglycerin 0.4 MG/HR PATCH* (10 MG) TRANSDERM SCH (22:34)
[2016-11-17] MEDS: NS 0.9% w/ 40 Meq KCL 1000 ML* 1,000 ML IV SCH ×3 (02:11→17:10)
[2016-11-17] MEDS: Insulin LISPRO* 1 UNITS UNIT SUBCUT SCH ×6 (02:15→22:31)
[2016-11-17 03:08] LABS: Urine Bacteria Absent (Absent); Urine Bilirubin Negative (Negative); Urine Glucose Negative (Negative); Urine Nitrite Negative (Negative)
[2016-11-17] MEDS: Heparin VIAL(*) 5000 UNITS/ML VIAL (FIVE THOUSAND) SUBCUT SCH ×3 (05:41→21:04)
[2016-11-17 06:04] LABS: Hematocrit 32 % (35-47); Hemoglobin 10.5 g/dl (12.0-16.0); Mean Corpuscular HGB Conc 33 g/dl (31-36); Mean Corpuscular Hemoglobin 30 pg (27-31); Mean Corpuscular Volume 89 fL (80-97); Mean Platelet Volume 10 um3 (7.4-10.4); Red Blood Count 3.57 10^6/ul (4.0-5.4); Red Cell Distribution Width 16 % (10.5-15); White Blood Count 11.8 10^3/ul (3.5-10.8)
[2016-11-17 06:26] LABS: Calcium 8.8 mg/dL (8.6-10.3); EGFR African American 59.8 (>60); EGFR Non-African American 46.5 (>60); Potassium 4.6 mmol/L (3.5-5.0)
--- NOTE | 2016-11-17 06:29 | PN ---
Progress Note - Progress Note Date of Service: 11/17/16 Note: Nursing called concerned for decreased level of responsiveness after her combativeness overnight. Upon arrival, Mrs Workman is sleeping and does not rouse to loud voice or adequate shoulder shake. However, rather light sternal rub results in her grabbing my arm suddenly with her left arm, swinging at me with her R arm and shouting, "That hurt! Get out of my room and never come back! " Vitals are stable.
--- NOTE | 2016-11-17 09:30 | RAD ---
Indication: Failed NG tube placement. Assess for aspiration. Cardiac disease. Comparison: 1730 hours November 16, 2016 Technique: Upright AP 0134 hours Report: Low lung volumes for this patient based on correlation with the prior exam with associated crowding of the pulmonary markings and subsegmental atelectasis. Grossly clear pleural spaces. Negative for pneumothorax. Median sternotomy wires and mediastinal vascular clips.. Cardiomegaly. Unremarkable central pulmonary vasculature accounting for low lung volumes. Gallbladder fossa level surgical clips. IMPRESSION: Low lung volumes with subsegmental atelectasis. Accounting for this there is no compelling evidence for pneumonia.
--- NOTE | 2016-11-17 09:43 | RAD ---
Indication: Small bowel obstruction follow-up. Comparison: November 16, 2016 CT. Technique: Supine view of the abdomen. Report: Suggestion of significant improvement in small bowel dilatation as well as propagation of enteric contrast from the CT of one day prior to the colon. Large volume of stool the level of the rectum without significant rectal distention. Negative for mass effect. Median sternotomy wires, epigastric surgical clips, gallbladder fossa surgical clips. IMPRESSION: Significant interval improvement in ileus or partial small bowel obstruction compared with the CT of one day prior.
[2016-11-17] MEDS: Nystatin TOP POWDER* 15 GM BTL TOPICAL SCH ×2 (10:47→23:00)
[2016-11-17] MEDS ORDERED: Sodium Phosphate ADULT ENEMA* 118 ml bottle PR ONE (11:14)
--- NOTE | 2016-11-17 12:15 | PN ---
Subjective Date of Service: 11/17/16 Interval History: HOSPITALIST PROGRESS NOTE Patient seen and examined at bedside. She had a difficult night as documented by RN. Removed her NGT, RN unable to replace it. As per daughter, NGT drained "a lot" before patient removed it and she had multiple small BMs overnight. Patient offers no complaints this AM. Denies abdominal pain, nausea, and feels hungry. Would like "any flavor jello". Family History: Unchanged from Admission Social History: Unchanged from Admission Past Medical History: Unchanged from Admission Objective Active Medications: Acetaminophen (Tylenol Supp*) 650 mg TN Q4H PRN PRN Reason: Pain/Fever Dextrose (D50w Syringe 50 Ml*) 12.5 gm IV PUSH .FOR FS < 60 - SS PRN PRN Reason: FS < 60 Heparin Sodium (Porcine) (Heparin Vial(*)) 5,000 units SUBCUT Q8HR [facility] Last Admin: 11/17/16 05:41 Dose: 5,000 units Hydralazine HCl (Apresoline Iv*) 5 mg IV SLOW PU Q6H PRN PRN Reason: SBP>180 Potassium Chloride/Sodium Chloride (Ns 0.9% W/ 40 Meq Kcl 1000 Ml*) 1,000 mls @ 100 mls/hr IV PER RATE [facility] Last Admin: 11/17/16 02:11 Dose: 100 mls/hr Insulin Human Lispro (Humalog*) 0 units SUBCUT Q4HR [facility] PRN Reason: Protocol Last Admin: 11/17/16 10:46 Dose: 1 unit Morphine Sulfate (Morphine Inj (Syringe)*) 2 mg IV Q4H PRN PRN Reason: SEVERE PAIN Nitroglycerin (Nitroglycerin 10 Mg Patch*) 1 patch TRANSDERM BEDTIME [facility] Last Admin: 11/16/16 22:34 Dose: 1 patch Nitroglycerin (Nitroglycerin Tab 0.4 Mg*) 0.4 mg SL Q5M PRN PRN Reason: Chest pain Nystatin (Nystatin Top Powder*) 1 applic TOPICAL BID [facility] Last Admin: 11/17/16 10:47 Dose: 1 applic Ondansetron HCl (Zofran Inj*) 4 mg IV Q6H PRN PRN Reason: NAUSEA Polyvinyl Alcohol (Polyvinyl Alcohol 1.4% Opth*) 1 drop BOTH EYES BID PRN PRN Reason: DRY EYE Prochlorperazine Edisylate (Compazine Inj*) 5 mg IV Q6H PRN PRN Reason: NAUSEA/VOMITING Vital Signs 11/17/16 11:24 Temperature 98.2 F Pulse Rate 70 Respiratory 14 Rate Blood Pressure 140/42 (mmHg) O2 Sat by Pulse 98 Oximetry Oxygen Devices in Use Now: Nasal Cannula Appearance: Elderly lady lying in bed in NAD. Eyes: No Scleral Icterus Ears/Nose/Mouth/Throat: Mucous Membranes Moist Neck: Trachea Midline Respiratory: Symmetrical Chest Expansion and Respiratory Effort, Clear to Auscultation Cardiovascular: RRR - Normal S1 and S2 Abdominal: - - Obese, minimal distention, much improved from yesterday. No tenderness, guarding, or rebound, BS+ Neurological: - - Arousable to voice, pleasantly confused, oriented to self only , PRICE Lines/Tubes/Other Access: Clean, Dry and Intact Peripheral IV Result Diagrams: 11/17/16 05:39 11/17/16 05:39 Assess/Plan/Problems-Billing Assessment: Mrs. Workman is an 86yo F with PMH of CAD s/p recent NSTEMI, HTN, type 2 DM, HLD, DJD, obesity, Parkinson's disease, dementia, sent from SNF with abdominal pain, N/V, found to have SBO. - Patient Problems (1) SBO (small bowel obstruction) Comment: - Improving. - KUB shows improvement of small bowel distention. - Patient states she's hungry - will try clear liquids as tolerated. - Continue supportive care. (2) Diabetes Comment: - Patient was hypoglycemic at [facility]. - Novolog 70/30 on hold. - Monitor FS and cover with Lispro SS. (3) CAD (coronary artery disease) Comment: - Denies chest pain. - If she tolerates clear liquids, will resume PO meds. (4) Parkinsonism Comment: - Right hand tremors are more pronounced. - If she tolerates clear liquids will resume Carbidopa/Levodopa. (5) DVT prophylaxis Comment: - SQ Heparin. (6) DNR (do not resuscitate) Status and Disposition: Inpatient. Daughter (Janet) called and updated.
[2016-11-17] MEDS: Nitroglycerin TAB 0.4 MG* 0.4 MG TAB SL PRN ×3 (20:32→21:59)
[2016-11-17] MEDS: Nitroglycerin 0.4 MG/HR PATCH* (10 MG) TRANSDERM SCH (21:04)
--- NOTE | 2016-11-17 21:06 | PN ---
Progress Note - Progress Note Date of Service: 11/17/16 Note: Paged for chest pain unrelieved with NTG sublingual. Daugther at the bedside. EKG unchanged from prior EKG. WIll obtains labs and CXR/KUB. May need to be transfused. Chest pain relieved after second nitro. Daughter did not want her to have morphine due to her codeine allergy - will discontinue it.
[2016-11-17 21:07] LABS: Hematocrit 33 % (35-47); Hemoglobin 10.7 g/dl (12.0-16.0); Mean Corpuscular HGB Conc 32 g/dl (31-36); Mean Corpuscular Hemoglobin 29 pg (27-31); Mean Corpuscular Volume 90 fL (80-97); Mean Platelet Volume 10 um3 (7.4-10.4); Red Blood Count 3.65 10^6/ul (4.0-5.4); Red Cell Distribution Width 16 % (10.5-15); White Blood Count 9.8 10^3/ul (3.5-10.8)
[2016-11-17 21:21] LABS: BUN/Creatinine Ratio 27.6 (8-20); EGFR African American 63.8 (>60); EGFR Non-African American 49.6 (>60); Magnesium 1.9 mg/dL (1.9-2.7); Potassium 4.3 mmol/L (3.5-5.0)
[2016-11-17 21:29] LABS: Troponin I 0.04 ng/mL (<0.04)
--- NOTE | 2016-11-17 22:00 | RAD ---
Indication: Chest pain. Post coronary artery bypass. Small bowel obstruction. Comparison: November 17, 2016 chest radiograph and November 16, 2016 CT abdomen. Technique: Upright AP and lateral chest views. Report: No free air evident beneath the diaphragm. Mild linear consolidation at the LEFT lung base is most suspicious for subsegmental atelectasis. Negative for pleural effusion, or pneumothorax evident. Median sternotomy wires. Cardiomegaly. Unremarkable central pulmonary vasculature. Advanced arthropathy of the shoulders. IMPRESSION: 1. Cardiomegaly without evidence for pulmonary edema. 2. Mild LEFT basilar consolidation is most consistent with subsegmental atelectasis.
--- NOTE | 2016-11-17 22:07 | RAD ---
Indication: Abdominal pain. Small bowel obstruction. Comparison: November 17, 2016 0741 hours Technique: Supine view of the abdomen. Report: No residual dilated small bowel loops evident. Large volume of stool present throughout the colon with moderately severe rectal distention. Costochondral calcifications noted. Vascular calcifications. Gallbladder fossa surgical clips. No mass effect evident. IMPRESSION: Radiographic resolution of previous small bowel obstruction. Large volume of stool present throughout the colon with moderately severe rectal distention.
[2016-11-18] MEDS: NS 0.9% w/ 40 Meq KCL 1000 ML* 1,000 ML IV SCH (01:16)
[2016-11-18] MEDS: Insulin LISPRO* 1 UNITS UNIT SUBCUT SCH ×6 (02:24→22:23)
[2016-11-18] MEDS: Heparin VIAL(*) 5000 UNITS/ML VIAL (FIVE THOUSAND) SUBCUT SCH (05:43)
[2016-11-18 07:26] LABS: Hematocrit 30 % (35-47); Mean Corpuscular HGB Conc 33 g/dl (31-36); Mean Corpuscular Hemoglobin 30 pg (27-31); Mean Corpuscular Volume 90 fL (80-97); Mean Platelet Volume 10 um3 (7.4-10.4); Red Blood Count 3.35 10^6/ul (4.0-5.4); Red Cell Distribution Width 16 % (10.5-15); White Blood Count 9.2 10^3/ul (3.5-10.8)
[2016-11-18 07:37] LABS: Calcium 8.9 mg/dL (8.6-10.3); EGFR African American 73.3 (>60); Potassium 4.3 mmol/L (3.5-5.0)
[2016-11-18 07:47] LABS: Troponin I 0.09 ng/mL (<0.04)
[2016-11-18] MEDS ORDERED: Pantoprazole IV* 40 MG IV ONE (08:37)
--- NOTE | 2016-11-18 09:07 | RAD ---
Indication: Small bowel obstruction follow-up. Comparison: November 17, 2016 abdomen radiograph and November 16, 2016 CT. Technique: Supine view of the abdomen. Report: Negative for dilated small or large bowel loops. Persistent large volume of stool throughout the redundant colon with moderately severe rectal distention. Negative for mass effect. Vascular calcifications. Gallbladder fossa surgical clips. IMPRESSION: Resolved small bowel obstruction. Persistent large volume of stool in the colon with significant rectal distention.
[2016-11-18] MEDS ORDERED: Senna TAB PO PRN (09:13)
[2016-11-18] MEDS ORDERED: Docusate CAP* 100 MG PO PRN (09:18)
[2016-11-18] MEDS: Metoprolol Tartrate TAB* 25 MG PO SCH ×2 (09:49→21:47)
[2016-11-18] MEDS: Polyethylene Glycol 3350* 17 GM PACKET PO SCH (09:50)
[2016-11-18] MEDS: NS 0.9% 1000 ML* 1,000 ML IV SCH ×2 (10:26→22:35)
[2016-11-18] MEDS: Pantoprazole IV* 80 MG in NS 0.9% 250 ML* 250 ML IVPB SCH ×2 (10:26→22:35)
[2016-11-18] MEDS: Nystatin TOP POWDER* 15 GM BTL TOPICAL SCH ×2 (11:56→21:50)
[2016-11-18] MEDS: Carbidopa/Levodop 25/100 MG TAB(*) PO SCH ×3 (12:02→22:14)
[2016-11-18] MEDS: Isosorbide Dinitrate TAB* 10 MG PO SCH ×3 (14:11→21:51)
--- NOTE | 2016-11-18 15:11 | PN ---
Subjective Date of Service: 11/18/16 Interval History: HOSPITALIST PROGRESS NOTE Patient Family History: Unchanged from Admission Social History: Unchanged from Admission Past Medical History: Unchanged from Admission Objective Active Medications: Acetaminophen (Tylenol Supp*) 650 mg MD Q4H PRN PRN Reason: Pain/Fever Amlodipine Besylate (Norvasc Tab*) 10 mg PO DAILY [facility] Atorvastatin Calcium (Lipitor*) 40 mg PO 1700 [facility] Carbidopa/Levodopa (Sinemet 25/100 Tab(*)) 1 tab PO 0600,1700 [facility] Carbidopa/Levodopa (Sinemet 25/100 Tab(*)) 0.5 tab PO 1200,2200 [facility] Last Admin: 11/18/16 12:02 Dose: 0.5 tab Dextrose (D50w Syringe 50 Ml*) 12.5 gm IV PUSH .FOR FS < 60 - SS PRN PRN Reason: FS < 60 Docusate Sodium (Colace Cap*) 100 mg PO BEDTIME PRN PRN Reason: CONSTIPATION Last Admin: 11/18/16 09:49 Dose: 100 mg Hydralazine HCl (Apresoline Iv*) 5 mg IV SLOW PU Q6H PRN PRN Reason: SBP>180 Pantoprazole Sodium 80 mg/ (Sodium Chloride) 250 mls @ 25 mls/hr IVPB Q10H [facility] Last Admin: 11/18/16 10:26 Dose: 25 mls/hr Sodium Chloride (Ns 0.9% 1000 Ml*) 1,000 mls @ 75 mls/hr IV PER RATE [facility] Last Admin: 11/18/16 10:26 Dose: 75 mls/hr Insulin Human Lispro (Humalog*) 0 units SUBCUT Q4HR [facility] PRN Reason: Protocol Last Admin: 11/18/16 14:52 Dose: 1 unit Isosorbide Dinitrate (Isordil Tab*) 10 mg PO QID [facility] Last Admin: 11/18/16 14:11 Dose: 10 mg Lisinopril (Prinivil Tab*) 40 mg PO DAILY [facility] Metoprolol Tartrate (Lopressor Tab*) 12.5 mg PO Q12HR [facility] Last Admin: 11/18/16 09:49 Dose: 12.5 mg Nitroglycerin (Nitroglycerin 10 Mg Patch*) 1 patch TRANSDERM BEDTIME [facility] Last Admin: 11/17/16 21:04 Dose: 1 patch Nitroglycerin (Nitroglycerin Tab 0.4 Mg*) 0.4 mg SL Q5M PRN PRN Reason: Chest pain Last Admin: 11/17/16 21:59 Dose: 0.4 mg Nystatin (Nystatin Top Powder*) 1 applic TOPICAL BID [facility] Last Admin: 11/18/16 11:56 Dose: 1 applic Ondansetron HCl (Zofran Inj*) 4 mg IV Q6H PRN PRN Reason: NAUSEA Polyethylene Glycol/Electrolytes (Miralax*) 17 gm PO DAILY [facility] Last Admin: 11/18/16 09:50 Dose: 17 gm Polyvinyl Alcohol (Polyvinyl Alcohol 1.4% Opth*) 1 drop BOTH EYES BID PRN PRN Reason: DRY EYE Potassium Chloride (Klor Con Er Tab*) 20 meq PO DAILY [facility] Prochlorperazine Edisylate (Compazine Inj*) 5 mg IV Q6H PRN PRN Reason: NAUSEA/VOMITING Senna (Senokot Tab*) 2 tab PO BEDTIME PRN PRN Reason: CONSTIPATION Last Admin: 11/18/16 09:49 Dose: 2 tab Vital Signs 11/17/16 11/17/16 11/17/16 15:53 16:29 19:23 Temperature 98.6 F 98.4 F Pulse Rate 69 73 Respiratory 18 18 Rate Blood Pressure 167/50 144/52 (mmHg) O2 Sat by Pulse 98 100 Oximetry 11/17/16 11/17/16 11/17/16 20:00 20:47 22:01 Temperature Pulse Rate 72 79 Respiratory 18 20 Rate Blood Pressure 145/59 167/63 (mmHg) O2 Sat by Pulse 97 99 Oximetry 11/17/16 11/17/16 11/18/16 23:04 23:55 02:45 Temperature 98.9 F 97.6 F Pulse Rate 65 77 Respiratory 16 16 16 Rate Blood Pressure 124/39 147/95 (mmHg) O2 Sat by Pulse 98 100 Oximetry 11/18/16 11/18/16 11/18/16 04:03 07:37 07:40 Temperature 98.0 F 98.1 F Pulse Rate 70 67 Respiratory 16 16 16 Rate Blood Pressure 127/45 141/56 (mmHg) O2 Sat by Pulse 96 100 Oximetry 11/18/16 12:26 Temperature 98.2 F Pulse Rate 56 Respiratory 18 Rate Blood Pressure 145/45 (mmHg) O2 Sat by Pulse Oximetry Oxygen Devices in Use Now: Nasal Cannula Result Diagrams: 11/18/16 07:00 11/18/16 07:00 Additional Lab and Data: Lab Results 11/16/16 11/16/16 11/16/16 Range/Units 10:11 10:11 10:11 WBC 9.9 (3.5-10.8) 10^3/ul RBC 4.73 (4.0-5.4) 10^6/ul Hgb 13.8 (12.0-16.0) g/dl Hct 42 (35-47) % MCV 89 (80-97) fL MCH 29 (27-31) pg MCHC 33 (31-36) g/dl RDW 16 H (10.5-15) % Plt Count 173 (150-450) 10^3/ul MPV 10 (7.4-10.4) um3 Neut % (Auto) 79.5 (38-83) % Lymph % (Auto) 13.5 L (25-47) % Towns % (Auto) 6.3 (1-9) % Eos % (Auto) 0.1 (0-6) % Baso % (Auto) 0.6 (0-2) % Absolute Neuts (auto) 7.8 H (1.5-7.7) 10^3/ul Absolute Lymphs (auto) 1.3 (1.0-4.8) 10^3/ul Absolute Monos (auto) 0.6 (0-0.8) 10^3/ul Absolute Eos (auto) 0 (0-0.6) 10^3/ul Absolute Basos (auto) 0.1 (0-0.2) 10^3/ul Absolute Nucleated RBC 0 10^3/ul Nucleated RBC % 0 Sodium 136 (133-145) mmol/L Potassium 4.6 (3.5-5.0) mmol/L Chloride 101 (101-111) mmol/L Carbon Dioxide 25 (22-32) mmol/L Anion Gap 10 (2-11) mmol/L BUN 32 H (6-24) mg/dL Creatinine 1.15 H (0.51-0.95) mg/dL Est GFR ( Amer) 57.4 (>60) Est GFR (Non-Af Amer) 44.6 (>60) BUN/Creatinine Ratio 27.8 H (8-20) Glucose 90 (70-100) mg/dL Lactic Acid (0.5-2.0) mmol/L Calcium 10.8 H (8.6-10.3) mg/dL Total Bilirubin 0.70 (0.2-1.0) mg/dL AST 18 (13-39) U/L ALT 7 (7-52) U/L Alkaline Phosphatase 73 (34-104) U/L Ammonia 28 (16-53) mol/L Troponin I 0.03 (<0.04) ng/mL C-Reactive Protein 16.93 H (< 5.00) mg/L Total Protein 7.7 (6.4-8.9) g/dL Albumin 3.8 (3.2-5.2) g/dL Globulin 3.9 (2-4) g/dL Albumin/Globulin Ratio 1.0 (1-3) Amylase 26 L (29-103) U/L Lipase < 10 L (11.0-82.0) U/L // Range/Units 10:11 WBC (3.5-10.8) 10^3/ul RBC (4.0-5.4) 10^6/ul Hgb (12.0-16.0) g/dl Hct (35-47) % MCV (80-97) fL MCH (27-31) pg MCHC (31-36) g/dl RDW (10.5-15) % Plt Count (150-450) 10^3/ul MPV (7.4-10.4) um3 Neut % (Auto) (38-83) % Lymph % (Auto) (25-47) % Towns % (Auto) (1-9) % Eos % (Auto) (0-6) % Baso % (Auto) (0-2) % Absolute Neuts (auto) (1.5-7.7) 10^3/ul Absolute Lymphs (auto) (1.0-4.8) 10^3/ul Absolute Monos (auto) (0-0.8) 10^3/ul Absolute Eos (auto) (0-0.6) 10^3/ul Absolute Basos (auto) (0-0.2) 10^3/ul Absolute Nucleated RBC 10^3/ul Nucleated RBC % Sodium (133-145) mmol/L Potassium (3.5-5.0) mmol/L Chloride (101-111) mmol/L Carbon Dioxide (22-32) mmol/L Anion Gap (2-11) mmol/L BUN (6-24) mg/dL Creatinine (0.51-0.95) mg/dL Est GFR ( Amer) (>60) Est GFR (Non-Af Amer) (>60) BUN/Creatinine Ratio (8-20) Glucose (70-100) mg/dL Lactic Acid 1.3 (0.5-2.0) mmol/L Calcium (8.6-10.3) mg/dL Total Bilirubin (0.2-1.0) mg/dL AST (13-39) U/L ALT (7-52) U/L Alkaline Phosphatase (34-104) U/L Ammonia (16-53) mol/L Troponin I (<0.04) ng/mL C-Reactive Protein (< 5.00) mg/L Total Protein (6.4-8.9) g/dL Albumin (3.2-5.2) g/dL Globulin (2-4) g/dL Albumin/Globulin Ratio (1-3) Amylase (29-103) U/L Lipase (11.0-82.0) U/L Assess/Plan/Problems-Billing Assessment: Mrs. Workman is an 86yo F with PMH of CAD s/p recent NSTEMI, HTN, type 2 DM, HLD, DJD, obesity, Parkinson's disease, dementia, sent from SNF with abdominal pain, N/V, found to have SBO. - Patient Problems (1) SBO (small bowel obstruction) Comment: - Improving. - KUB shows improvement of small bowel distention. - Patient states she's hungry - will try clear liquids as tolerated. - Continue supportive care. (2) Diabetes Comment: - Patient was hypoglycemic at [facility]. - Novolog 70/30 on hold. - Monitor FS and cover with Lispro SS. (3) CAD (coronary artery disease) Comment: - Denies chest pain. - If she tolerates clear liquids, will resume PO meds. (4) Parkinsonism Comment: - Right hand tremors are more pronounced. - If she tolerates clear liquids will resume Carbidopa/Levodopa. (5) DVT prophylaxis Comment: - SQ Heparin. (6) DNR (do not resuscitate) Status and Disposition: Inpatient. Daughter (Janet) called and updated.
--- NOTE | 2016-11-18 15:22 | PN ---
Subjective Date of Service: 11/18/16 Interval History: HOSPITALIST PROGRESS NOTE Patient seen and examined at bedside. She offers no complaints today, does not remember having chest pain last night. Tolerated jello with no N/V. Family History: Unchanged from Admission Social History: Unchanged from Admission Past Medical History: Unchanged from Admission Objective Active Medications: Acetaminophen (Tylenol Supp*) 650 mg HI Q4H PRN PRN Reason: Pain/Fever Amlodipine Besylate (Norvasc Tab*) 10 mg PO DAILY [facility] Atorvastatin Calcium (Lipitor*) 40 mg PO 1700 [facility] Carbidopa/Levodopa (Sinemet 25/100 Tab(*)) 1 tab PO 0600,1700 [facility] Carbidopa/Levodopa (Sinemet 25/100 Tab(*)) 0.5 tab PO 1200,2200 [facility] Last Admin: 11/18/16 12:02 Dose: 0.5 tab Dextrose (D50w Syringe 50 Ml*) 12.5 gm IV PUSH .FOR FS < 60 - SS PRN PRN Reason: FS < 60 Docusate Sodium (Colace Cap*) 100 mg PO BEDTIME PRN PRN Reason: CONSTIPATION Last Admin: 11/18/16 09:49 Dose: 100 mg Hydralazine HCl (Apresoline Iv*) 5 mg IV SLOW PU Q6H PRN PRN Reason: SBP>180 Pantoprazole Sodium 80 mg/ (Sodium Chloride) 250 mls @ 25 mls/hr IVPB Q10H [facility] Last Admin: 11/18/16 10:26 Dose: 25 mls/hr Sodium Chloride (Ns 0.9% 1000 Ml*) 1,000 mls @ 75 mls/hr IV PER RATE [facility] Last Admin: 11/18/16 10:26 Dose: 75 mls/hr Insulin Human Lispro (Humalog*) 0 units SUBCUT Q4HR [facility] PRN Reason: Protocol Last Admin: 11/18/16 14:52 Dose: 1 unit Isosorbide Dinitrate (Isordil Tab*) 10 mg PO QID [facility] Last Admin: 11/18/16 14:11 Dose: 10 mg Lisinopril (Prinivil Tab*) 40 mg PO DAILY [facility] Metoprolol Tartrate (Lopressor Tab*) 12.5 mg PO Q12HR [facility] Last Admin: 11/18/16 09:49 Dose: 12.5 mg Nitroglycerin (Nitroglycerin 10 Mg Patch*) 1 patch TRANSDERM BEDTIME [facility] Last Admin: 11/17/16 21:04 Dose: 1 patch Nitroglycerin (Nitroglycerin Tab 0.4 Mg*) 0.4 mg SL Q5M PRN PRN Reason: Chest pain Last Admin: 11/17/16 21:59 Dose: 0.4 mg Nystatin (Nystatin Top Powder*) 1 applic TOPICAL BID [facility] Last Admin: 11/18/16 11:56 Dose: 1 applic Ondansetron HCl (Zofran Inj*) 4 mg IV Q6H PRN PRN Reason: NAUSEA Polyethylene Glycol/Electrolytes (Miralax*) 17 gm PO DAILY [facility] Last Admin: 11/18/16 09:50 Dose: 17 gm Polyvinyl Alcohol (Polyvinyl Alcohol 1.4% Opth*) 1 drop BOTH EYES BID PRN PRN Reason: DRY EYE Potassium Chloride (Klor Con Er Tab*) 20 meq PO DAILY [facility] Prochlorperazine Edisylate (Compazine Inj*) 5 mg IV Q6H PRN PRN Reason: NAUSEA/VOMITING Senna (Senokot Tab*) 2 tab PO BEDTIME PRN PRN Reason: CONSTIPATION Last Admin: 11/18/16 09:49 Dose: 2 tab Vital Signs 11/18/16 12:26 Temperature 98.2 F Pulse Rate 56 Respiratory 18 Rate Blood Pressure 145/45 (mmHg) O2 Sat by Pulse Oximetry Oxygen Devices in Use Now: Nasal Cannula Appearance: Elderly lady lying in bed in [facility]. Eyes: No Scleral Icterus Ears/Nose/Mouth/Throat: Mucous Membranes Moist Neck: Trachea Midline Respiratory: Symmetrical Chest Expansion and Respiratory Effort, Clear to Auscultation Cardiovascular: RRR - Normal S1 and S2 Abdominal: NL Sounds; No Tenderness; No Distention Neurological: - - AAOx1 (self), PRICE Lines/Tubes/Other Access: Clean, Dry and Intact Peripheral IV Nutrition: Taking PO's Result Diagrams: 11/18/16 07:00 11/18/16 07:00 Assess/Plan/Problems-Billing Assessment: Mrs. Workman is an 86yo F with PMH of CAD s/p recent NSTEMI, HTN, type 2 DM, HLD, DJD, obesity, Parkinson's disease, dementia, sent from SNF with abdominal pain, N/V, found to have SBO. - Patient Problems (1) SBO (small bowel obstruction) Comment: - Improving. - KUB showed resolution of SBO, but still large amount of stool in the rectum. - Advance diet to full liquids. - Soap suds enema as tolerated. - Continue supportive care. (2) Diabetes Comment: - Patient was hypoglycemic at [facility]. - Novolog 70/30 on hold. - Monitor FS and cover with Lispro SS. (3) CAD (coronary artery disease) Comment: - Had chest pain last night with no EKG changes and minimal troponin elevation. - Will resume PO meds as tolerated. (4) Anemia Comment: - Patient had some bleeding when RN attempted to replace NGT, but source appears to be her nose. - H/H dropped from 13/42 to 10/30. - No signs of active GI bleed at this time - continue to monitor. - Add PPI. - Aspirin and heparin on hold for now. (5) Parkinsonism Comment: - Resume Carbidopa/Levodopa. (6) DVT prophylaxis Comment: - SCDs. (7) DNR (do not resuscitate) Status and Disposition: Inpatient.
[2016-11-18] MEDS: Atorvastatin* 40 MG TAB PO SCH (17:49)
[2016-11-18] MEDS ORDERED: Nitro Patch/OINT Remove PATCH OFF ONE (19:30)
[2016-11-18 20:52] LABS: Hematocrit 30 % (35-47); Hemoglobin 9.8 g/dl (12.0-16.0)
[2016-11-18] MEDS: Aspirin EC Low Dose* 81 MG TAB.EC PO SCH (21:47)
[2016-11-18] MEDS: Nitroglycerin 0.4 MG/HR PATCH* (10 MG) TRANSDERM SCH (21:49)
[2016-11-19] MEDS: Insulin LISPRO* 1 UNITS UNIT SUBCUT SCH ×6 (02:32→21:36)
[2016-11-19 05:06] LABS: Troponin I 0.11 ng/mL (<0.04)
[2016-11-19 05:07] LABS: BUN/Creatinine Ratio 23.9 (8-20); Calcium 8.7 mg/dL (8.6-10.3); EGFR African American 74.3 (>60); EGFR Non-African American 57.7 (>60); Potassium 4.1 mmol/L (3.5-5.0)
[2016-11-19 05:28] LABS: Hematocrit 30 % (35-47); Hemoglobin 9.9 g/dl (12.0-16.0); Mean Corpuscular HGB Conc 33 g/dl (31-36); Mean Corpuscular Hemoglobin 30 pg (27-31); Mean Corpuscular Volume 90 fL (80-97); Mean Platelet Volume 11 um3 (7.4-10.4); Red Blood Count 3.33 10^6/ul (4.0-5.4); Red Cell Distribution Width 16 % (10.5-15); White Blood Count 7.3 10^3/ul (3.5-10.8)
[2016-11-19] MEDS ORDERED: Nitro Patch/OINT Remove PATCH OFF SCH (06:00)
[2016-11-19] MEDS: Carbidopa/Levodop 25/100 MG TAB(*) PO SCH ×4 (06:11→21:37)
--- NOTE | 2016-11-19 08:05 | RAD ---
Indication: Small bowel obstruction Flat plate of the abdomen demonstrates no free air. Nondistended loops of small bowel are noted. Stool is present throughout the colon. No significant change is noted since November 18, 2016. IMPRESSION: No free air. Nonspecific bowel gas pattern.
[2016-11-19] MEDS: Polyethylene Glycol 3350* 17 GM PACKET PO SCH (09:06)
[2016-11-19] MEDS: amLODIPine TAB* 5 MG PO SCH (09:09)
[2016-11-19] MEDS: Lisinopril TAB* 10 MG PO SCH (09:09)
[2016-11-19] MEDS: Metoprolol Tartrate TAB* 25 MG PO SCH ×2 (09:10→21:38)
[2016-11-19] MEDS: Aspirin EC Low Dose* 81 MG TAB.EC PO SCH (09:10)
[2016-11-19] MEDS: Isosorbide Dinitrate TAB* 10 MG PO SCH ×4 (09:11→21:37)
[2016-11-19] MEDS: Potassium Chlor TAB* 10 MEQ TAB.ER PO SCH (09:12)
[2016-11-19] MEDS: Pantoprazole IV* 80 MG in NS 0.9% 250 ML* 250 ML IVPB SCH (09:27)
[2016-11-19] MEDS: Nitro Patch/OINT Remove PATCH OFF SCH (10:00)
[2016-11-19] MEDS ORDERED: Bisacodyl EC TAB* 5 MG PO ONE (11:00)
[2016-11-19] MEDS: Nystatin TOP POWDER* 15 GM BTL TOPICAL SCH ×2 (11:17→21:38)
[2016-11-19] MEDS: NS 0.9% 1000 ML* 1,000 ML IV SCH (12:25)
--- NOTE | 2016-11-19 13:45 | PN ---
Subjective Date of Service: 11/19/16 Interval History: HOSPITALIST PROGRESS NOTE Patient seen and examined at bedside. She offers no complaints today. Family History: Unchanged from Admission Social History: Unchanged from Admission Past Medical History: Unchanged from Admission Objective Active Medications: Acetaminophen (Tylenol Supp*) 650 mg NC Q4H PRN PRN Reason: Pain/Fever Amlodipine Besylate (Norvasc Tab*) 10 mg PO DAILY [facility] Last Admin: 11/19/16 09:09 Dose: 10 mg Aspirin (Aspirin Ec Low Dose*) 81 mg PO DAILY [facility] Last Admin: 11/19/16 09:10 Dose: 81 mg Atorvastatin Calcium (Lipitor*) 40 mg PO 1700 [facility] Last Admin: 11/18/16 17:49 Dose: 40 mg Carbidopa/Levodopa (Sinemet 25/100 Tab(*)) 1 tab PO 0600,1700 [facility] Last Admin: 11/19/16 06:11 Dose: 1 tab Carbidopa/Levodopa (Sinemet 25/100 Tab(*)) 0.5 tab PO 1200,2200 [facility] Last Admin: 11/19/16 13:32 Dose: 0.5 tab Dextrose (D50w Syringe 50 Ml*) 12.5 gm IV PUSH .FOR FS < 60 - SS PRN PRN Reason: FS < 60 Docusate Sodium (Colace Cap*) 100 mg PO BEDTIME PRN PRN Reason: CONSTIPATION Last Admin: 11/18/16 09:49 Dose: 100 mg Hydralazine HCl (Apresoline Iv*) 5 mg IV SLOW PU Q6H PRN PRN Reason: SBP>180 Insulin Human Lispro (Humalog*) 0 units SUBCUT ACHS [facility] PRN Reason: Protocol Last Admin: 11/19/16 13:33 Dose: 2 unit Isosorbide Dinitrate (Isordil Tab*) 10 mg PO QID [facility] Last Admin: 11/19/16 13:33 Dose: 10 mg Lisinopril (Prinivil Tab*) 40 mg PO DAILY [facility] Last Admin: 11/19/16 09:09 Dose: 40 mg Metoprolol Tartrate (Lopressor Tab*) 12.5 mg PO Q12HR [facility] Last Admin: 11/19/16 09:10 Dose: 12.5 mg Nitroglycerin (Nitroglycerin 10 Mg Patch*) 1 patch TRANSDERM BEDTIME [facility] Last Admin: 11/18/16 21:49 Dose: 1 patch Nitroglycerin (Nitroglycerin Tab 0.4 Mg*) 0.4 mg SL Q5M PRN PRN Reason: Chest pain Last Admin: 11/17/16 21:59 Dose: 0.4 mg Nystatin (Nystatin Top Powder*) 1 applic TOPICAL BID [facility] Last Admin: 11/19/16 11:17 Dose: 1 applic Ondansetron HCl (Zofran Inj*) 4 mg IV Q6H PRN PRN Reason: NAUSEA Last Admin: 11/19/16 04:35 Dose: 4 mg Pantoprazole Sodium (Protonix Iv*) 40 mg IV DAILY [facility] Pharmacy Profile Note (Nitro Patch/Oint Remove*) 1 note PATCH OFF 0900 [facility] Last Admin: 11/19/16 10:00 Dose: 1 patch Polyethylene Glycol/Electrolytes (Miralax*) 17 gm PO DAILY [facility] Last Admin: 11/19/16 09:06 Dose: 17 gm Polyvinyl Alcohol (Polyvinyl Alcohol 1.4% Opth*) 1 drop BOTH EYES BID PRN PRN Reason: DRY EYE Potassium Chloride (Klor Con Er Tab*) 20 meq PO DAILY [facility] Last Admin: 11/19/16 09:12 Dose: 20 meq Prochlorperazine Edisylate (Compazine Inj*) 5 mg IV Q6H PRN PRN Reason: NAUSEA/VOMITING Last Admin: 11/19/16 07:50 Dose: 5 mg Senna (Senokot Tab*) 2 tab PO BEDTIME PRN PRN Reason: CONSTIPATION Last Admin: 11/18/16 09:49 Dose: 2 tab Vital Signs 11/19/16 11/19/16 11/19/16 06:25 07:50 08:00 Temperature 98.4 F Pulse Rate 61 Respiratory 24 24 Rate Blood Pressure 146/40 (mmHg) O2 Sat by Pulse 92 94 Oximetry Oxygen Devices in Use Now: None Appearance: Elderly lady lying in bed in [facility]. Eyes: No Scleral Icterus Ears/Nose/Mouth/Throat: Mucous Membranes Moist Neck: Trachea Midline Respiratory: Symmetrical Chest Expansion and Respiratory Effort, Clear to Auscultation Cardiovascular: RRR - Normal S1 and S2 Abdominal: NL Sounds; No Tenderness; No Distention Neurological: - - AAOx2 (self and place), PRICE Lines/Tubes/Other Access: Clean, Dry and Intact Peripheral IV Nutrition: Taking PO's Result Diagrams: 11/19/16 04:58 11/19/16 04:15 Assess/Plan/Problems-Billing Assessment: Mrs. Workman is an 86yo F with PMH of CAD s/p recent NSTEMI, HTN, type 2 DM, HLD, DJD, obesity, Parkinson's disease, dementia, sent from SNF with abdominal pain, N/V, found to have SBO. - Patient Problems (1) SBO (small bowel obstruction) Comment: - KUB is much improved. - Had multiple BMs. - Advance diet to low fiber as tolerated. - Continue supportive care. (2) Diabetes Comment: - Patient was hypoglycemic at [facility]. - Novolog 70/30 on hold. - Monitor FS and cover with Lispro SS. (3) CAD (coronary artery disease) Comment: - Had chest pain last night with no EKG changes and troponin elevation suggestive of demand ischemia. - Continue ASA, metoprolol, amlodipine, nitrates, statin. (4) Anemia Comment: - Patient had some bleeding when RN attempted to replace NGT, but source appears to be her nose. - H/H dropped from 13/42 to 10/30, but remains stable. - No signs of active GI bleed at this time - d/c Protonix drip. (5) Parkinsonism Comment: - Continue Carbidopa/Levodopa. (6) DVT prophylaxis Comment: - SCDs. (7) DNR (do not resuscitate) Status and Disposition: Inpatient. Anticipate return to [facility] in AM.
[2016-11-19] MEDS: Pantoprazole IV* 40 MG IV SCH (15:35)
[2016-11-19] MEDS: Atorvastatin* 40 MG TAB PO SCH (17:27)
[2016-11-19] MEDS: Nitroglycerin 0.4 MG/HR PATCH* (10 MG) TRANSDERM SCH (21:36)
[2016-11-20 05:15] LABS: Hematocrit 32 % (35-47); Hemoglobin 10.5 g/dl (12.0-16.0); Mean Corpuscular HGB Conc 33 g/dl (31-36); Mean Corpuscular Hemoglobin 29 pg (27-31); Mean Corpuscular Volume 90 fL (80-97); Mean Platelet Volume 10 um3 (7.4-10.4); Red Blood Count 3.57 10^6/ul (4.0-5.4); Red Cell Distribution Width 15 % (10.5-15); White Blood Count 8.1 10^3/ul (3.5-10.8)
[2016-11-20 05:26] LABS: BUN/Creatinine Ratio 18.4 (8-20); Calcium 8.5 mg/dL (8.6-10.3); EGFR African American 79.2 (>60); EGFR Non-African American 61.6 (>60); Potassium 3.8 mmol/L (3.5-5.0)
[2016-11-20] MEDS: Carbidopa/Levodop 25/100 MG TAB(*) PO SCH (05:56)
[2016-11-20 08:08] VITALS: BP 114/70
[2016-11-20] MEDS: amLODIPine TAB* 5 MG PO SCH (08:49)
[2016-11-20] MEDS: Potassium Chlor TAB* 10 MEQ TAB.ER PO SCH (08:49)
[2016-11-20] MEDS: Aspirin EC Low Dose* 81 MG TAB.EC PO SCH (08:49)
[2016-11-20] MEDS: Isosorbide Dinitrate TAB* 10 MG PO SCH (08:49)
[2016-11-20] MEDS: Polyethylene Glycol 3350* 17 GM PACKET PO SCH (08:49)
[2016-11-20] MEDS: Insulin LISPRO* 1 UNITS UNIT SUBCUT SCH (08:49)
[2016-11-20] MEDS: Lisinopril TAB* 10 MG PO SCH (08:49)
[2016-11-20] MEDS: Metoprolol Tartrate TAB* 25 MG PO SCH (08:49)
[2016-11-20] MEDS: Pantoprazole IV* 40 MG IV SCH (08:50)
[2016-11-20] MEDS: Nitro Patch/OINT Remove PATCH OFF SCH (09:53)
--- NOTE | 2016-11-20 11:47 | DS ---
CC: Dr. Jason James, [facility]; Dr. Marciano Churchill * DATE OF ADMISSION: 11/16/2016. DATE OF DISCHARGE: 11/20/2016. DISCHARGE DIAGNOSES: 1. Small bowel obstruction. 2. Severe constipation. 3. Demand ischemia. 4. Epistaxis. 5. Acute blood loss anemia. 6. Episodes of hypoglycemia secondary to poor oral intake. 7. Acute kidney injury. 8. Thrombocytopenia. SECONDARY DIAGNOSES: 1. Coronary artery disease, status post angiopathy and four vessel CABG in 1999 , and recent admission in mid October with a known ST-elevation ND. 2. Hypertension. 3. Type 2 diabetes. 4. Hyperlipidemia. 5. Osteoarthritis. 6. Obesity. 7. Parkinson's disease. 8. Dementia. MEDICATIONS: 1. Lactic acid 12% lotion to areas of dry skin as needed at bedtime. 2. Isordil 10 mg p.o. q.i.d. 3. Cholecalciferol 50,000 units p.o. q.30 days on the of every month. 4. Carbidopa/Levodopa 25/100 mg one tablet p.o. at 6:00 a.m. and 5:00 p.m., and half a tablet p.o. at noon and 10:00 p.m. 5. Artificial tears one drop to both eyes as needed for dry eyes. 6. Potassium chloride 20 mEq p.o. daily. 7. Lisinopril 40 mg p.o. daily. 8. Aspirin 81 mg p.o. daily. 9. Nystatin powder to areas of yeast infection topical twice a day. 10. Nitroglycerin 0.4 mg sublingual q.4 minutes prn chest pain, maximum 3 doses. 11. Metoprolol Tartrate 12.5 mg p.o. q.12 hours. 12. Amlodipine 10 mg p.o. daily. 13. Atorvastatin 40 mg p.o. at 5:00 p.m. 14. Nitro patch 0.4 mg a hour, apply at bedtime and remove at 9:00 a.m. Medication Change: 1. MiraLax 17 gm p.o. daily, hold for loose stools. 2. Senna two tablets p.o. at bedtime, hold for loose stools. 3. Colace 100 mg p.o. b.i.d., hold for loose stools. New Medication: Lispro sliding scale as follows: Fingersticks 131 to 150, zero units; 151 to 200, one unit; 201 to 250, two units; 251 to 300, three units ; 301 to 350, four units; 351 to 400, five units; greater than 400, call MD. Insulin 70/30 was discontinued for now due to hypoglycemia. HOSPITAL COURSE: Ms. Christianson is an 86-year-old lady, well-known to me from prior admissions, who presented to the emergency room with complaints of abdominal pain, nausea, and vomiting. As per records from custodial, on November 15 the patient had been found unresponsive with a blood glucose of 65 and she had refused her oral medications because she was "not feeling well." She developed abdominal pain and multiple episodes of emesis overnight and was transferred to the emergency room for further evaluation. For more details about her presentation, I refer you to her history and physical. Her abdomen x-ray in the emergency room showed a partial versus complete small bowel obstruction with a large volume of stool in the rectosigmoid with rectal distention, but no free air. The patient was admitted to the medical floor under the impression of a small bowel obstruction for further management. After discussion with family, the patient had an NG tube placed that drained a large amount of bilious secretions. She also required multiple enemas to resolve the amount of stool she had in her rectum. Unfortunately, the patient removed her NG tube and when the nurse tried to replace it, the patient developed epistaxis so the attempt was aborted. The patient had progressive improvement of her GI symptoms, and the abdomen x- ray also showed resolution of her small bowel obstruction. The last one also showed that the large amount of stool in the rectum had been expelled and it showed a nonspecific bowel gas pattern. The patient was initially started on clear liquid diet and this was advanced as tolerated. Now she is tolerating a heart-healthy consistent carb low residue diet. I believe she should continue on the low residue diet for at least two weeks. Initially, the patient's oral medications had to be held as she could not tolerate anything p.o. She was continued on her nitro patch and was receiving IV Hydralazine to control her blood pressure, but she did develop one episode of retrosternal chest pain and was transferred to the telemetry floor. Her EKG did not show any significant ischemic changes, but she did bump her troponins to a peak of 0.17. As her small bowel obstruction resolved, we resumed her oral medications and she had no further episodes of chest pain. The impression is that this troponin elevation was likely secondary to demand ischemia. The patient also developed anemia and initially there was some concern for an upper GI bleed, but I believe the source of her anemia was likely the episode of epistaxis that she developed with the traumatic NG tube insertion. She also received IV hydration, so there is also a dilutional component to it. I did not check stool for occult blood as she swallowed the epistaxis and it is probably going to be positive and not necessarily an indication of an upper GI bleed. She did have some BUN/creatinine elevation on admission and this resolved with IV fluids. Her H and H has been stable around 10/30 and her aspirin was resumed with no significant drop, but she will benefit of monitoring her H and H as an outpatient. The patient developed symptomatic hypoglycemia in the custodial due to her poor oral intake. While in the hospital, the patient's oral intake has improved , but the patient's glucose has remained below 200 and she has required minimal Lispro coverage. At this point, I think the insulin 70/30 should still be held and as her glucose trends up, it could be resumed later on. For now, I believe the plan would be to check her fingersticks a.c. and cover with Lispro sliding scale. The patient was found to have an abnormal urinalysis and her urine culture grew E. coli, but only 25 to 50,000 colonies, suggestive of asymptomatic bacteruria, but no true urinary tract infection at this point. The patient is medically stable to be discharged back to [facility] today. PHYSICAL EXAMINATION: General: The patient is a pleasantly confused, elderly, obese lady lying in bed in no acute distress. Vital Signs: Temperature 98.4, heart rate 69, respiratory rate 16, oxygen saturation 93 percent on room air, blood pressure 114/70. CVS: Normal S1, S2. Regular rate and rhythm. Chest: Breath sounds present bilaterally with no added sounds. Abdomen: Obese, soft, nontender, nondistended. Bowel sounds are present. Neuro: She is alert, awake , and oriented to self only. Able to move all four extremities. DIET: Heart-healthy, consistent carb diet, low fiber. ACTIVITIES: As tolerated. DISPOSITION: [facility]. STATUS WHILE IN THE HOSPITAL: Inpatient. Please keep in mind this is a summarized version of this patient's complex hospital stay. If you need more information, please feel free to call me at ( [phone] or please obtain the full medical records. Approximately 50 minutes were spent to complete this discharge. Her healthcare proxy, her daughter Janet Sandoval, was called and is in agreement with the plan. [id number]/[facility] #: [id number] LIBRADO
[2016-11-20] MEDS: Nystatin TOP POWDER* 15 GM BTL TOPICAL SCH (11:57)
== END 2016-11-20 12:11 | DRG 389 ==
LOC: ED 08:19 → MED 13:52 → MEDTELE 11-17 22:45
PROVIDERS: ADMIT Internal Medicine; ATTEND Internal Medicine
PROC: 0D9670Z Drainage of Stomach with Drainage Device, Via Natural or Artificial Opening (ICD-10-PCS; principal; 2016-11-16)
DX: K56.60 Unspecified intestinal obstruction (principal); I24.8 Other forms of acute ischemic heart disease; N17.9 Acute kidney failure, unspecified; D62 Acute posthemorrhagic anemia; D69.6 Thrombocytopenia, unspecified; I11.9 Hypertensive heart disease without heart failure; E11.649 Type 2 diabetes mellitus with hypoglycemia without coma; K59.09 Other constipation; R04.0 Epistaxis; I25.10 Atherosclerotic heart disease of native coronary artery without angina pectoris; E78.5 Hyperlipidemia, unspecified; M19.90 Unspecified osteoarthritis, unspecified site; E66.9 Obesity, unspecified; G20 Parkinson's disease; Z66 Do not resuscitate; F02.80 Dementia in other diseases classified elsewhere, unspecified severity, without behavioral disturbance, psychotic disturbance, mood disturbance, and anxiety; R07.9 Chest pain, unspecified; R74.8 Abnormal levels of other serum enzymes; I25.2 Old myocardial infarction; Z95.1 Presence of aortocoronary bypass graft; Z68.33 Body mass index [BMI] 33.0-33.9, adult; Z79.82 Long term (current) use of aspirin; Z79.4 Long term (current) use of insulin; Z79.899 Other long term (current) drug therapy; Z88.1 Allergy status to other antibiotic agents; Z88.5 Allergy status to narcotic agent; Z88.6 Allergy status to analgesic agent; Z88.0 Allergy status to penicillin; Z88.2 Allergy status to sulfonamides; Z88.8 Allergy status to other drugs, medicaments and biological substances
CPT/HCPCS: 36415; 71010; 71020; 74000; 74020; 74177; 80048; 80053; 81003; 81015; 82140; 82150; 83605; 83690; 83735; 84484; 85014; 85018; 85025; 86140; 87077; 87086; 87186; 93005; A9270-GY; J0780; J1644; J2405; Q9967

== ENCOUNTER 2017-07-07 16:32 | Observation (INO) | payer MEDICARE, MEDICAID ==
[2017-07-07] MEDS ORDERED: Aspirin TAB* 325 MG PO ONE (16:41)
[2017-07-07 17:07] LABS: ABS Basophils 0.1 10^3/ul (0-0.2); ABS Eosinophils 0 10^3/ul (0-0.6); ABS Lymphocytes 1.8 10^3/ul (1.0-4.8); ABS Monocytes 0.6 10^3/ul (0-0.8); ABS Neutrophils 5.1 10^3/ul (1.5-7.7); ABS Nucleated RBC 0 10^3/ul; Eosinophil % 0.4 % (0-6); Hematocrit 37 % (35-47); Hemoglobin 12.2 g/dl (12.0-16.0); Lymphocyte % 23.6 % (25-47); Mean Corpuscular HGB Conc 33 g/dl (31-36); Mean Corpuscular Hemoglobin 28 pg (27-31); Mean Corpuscular Volume 85 fL (80-97); Mean Platelet Volume 9.4 um3 (7.4-10.4); Nucleated Red Blood Cells % 0; Platelet Count 158 10^3/ul (150-450); Red Blood Count 4.33 10^6/ul (4.0-5.4); Red Cell Distribution Width 16 % (10.5-15); White Blood Count 7.6 10^3/ul (3.5-10.8)
[2017-07-07 17:27] LABS: EGFR Non-African American 68.8 (>60)
[2017-07-07 17:28] LABS: INR 0.94 (0.77-1.02)
--- NOTE | 2017-07-07 18:12 | RAD ---
INDICATION: Chest pain COMPARISON: None. TECHNIQUE: Single AP portable view of the chest was obtained. FINDINGS: Image quality is compromised due to the relative inferiority of a portable chest x-ray. Postsurgical changes include sternotomy wires and surgical clips overlying the mediastinum. The heart and mediastinum exhibit normal size and contour. There is coarse calcification overlying the arch of the aorta. The lungs are grossly clear. There is no evidence of a large pleural effusion. Visualized bones are normal for the patient's age. IMPRESSION: No radiographic evidence for acute cardiopulmonary abnormality on this portable chest x-ray.
[2017-07-07] MEDS ORDERED: Dextrose 50% Syringe 50 ML* 25 GM/50 ML SYRINGE IV PUSH PRN (21:07)
[2017-07-07] MEDS ORDERED: Acetaminophen TAB* 325 MG PO PRN (21:07)
[2017-07-07] MEDS ORDERED: Ondansetron INJ* 2 MG/ML VIAL IV PRN (21:08)
[2017-07-07] MEDS: Metoprolol Tartrate TAB* 25 MG PO SCH (22:32)
[2017-07-07] MEDS: Omeprazole CAP* 20 MG PO SCH (22:32)
[2017-07-07] MEDS: Heparin VIAL(*) 5000 UNITS/ML VIAL (FIVE THOUSAND) SUBCUT SCH (22:32)
--- NOTE | 2017-07-08 01:14 | HP ---
CC: [facility] * HISTORY AND PHYSICAL: DATE OF ADMISSION: 07/07/17 PRIMARY CARE PROVIDER: Rembert Slava. ATTENDING PHYSICIAN WHILE IN THE HOSPITAL: Dr. Kvng Calderón * (report dictated by Eder Hanson NP) CHIEF COMPLAINT: Chest pain. HISTORY OF PRESENT ILLNESS: Mrs. Workman is an 86-year-old female patient. She carries a history of CAD. She has had a history of a NSTEMI. She also carries a history of dementia, diabetes, SBO, hyperlipidemia, hypertension, Parkinson's and a history of CAD. She comes in to the ED today. She has had 2 episodes of chest discomfort one lasted one day, responded to two nitro. It happened while not at rest on the right side. It happened in the middle of the night on Friday and . The patient does not recall this event given the dementia, but the daughter who was with the patient rendering involvement of care did state that this was reported to her. The patient today was at [facility]. Around 3:30 or 3 o'clock, the patient had an episode of chest discomfort lasting about 30 minutes to 60 minutes. It is unclear just how long it lasted. She was given 3 nitro. Despite that, she was still having chest discomfort on the right side with associated nausea. There was a concern given the fact she was having chest pain and a history of coronary artery disease, she came into the hospital. There have been no reports of exertional chest pain. There have no been no reports of associated shortness of breath with this. The patient is reporting having some calf and leg pain particularly in her right leg. There is no shortness of breath now. She denied having any chest pain now. She said she has not had any recent cough, fevers, chills. There was nausea associated with the chest pain, but no shortness of breath. She again was concerned. She was evaluated here in the ED. Initial troponin was noted to be negative, but repeat troponin went up to 0.04. EKG did show a right bundle branch block, which was consistent with previous EKGs; but because of the elevated troponin, we were asked to evaluate for admission. PAST MEDICAL HISTORY: Significant for: 1. Dementia. 2. History of PA. 3. CAD. 4. Diabetes. 5. Hyperlipidemia. 6. Hypertension. 7. Parkinson's. 8. NSTEMI. 9. SBO. PAST SURGICAL HISTORY: 1. She has had CABG with quadruple bypass. 2. Hysterectomy. 3. Cholecystectomy. HOME MEDICATIONS: According to list provided: 1. Potassium 2 mg p.o. daily. 2. Artificial Tears 1 drop both eyes b.i.d. as needed. 3. Aspirin 81 mg daily. 4. Vitamin D 50,000 units p.o. weekly. 5. Nitro 0.4 mg sublingual q.5 minutes p.r.n. chest pain x3. 6. Nitro patch 1 patch transdermally daily. 7. Isosorbide dinitrate 10 mg p.o. 4 times a day. 8. Senna 2 tablets p.o. b.i.d. 9. Lipitor 40 mg daily. 10. Ammonium lactate 12% topically q.p.m. as needed. 11. MiraLAX 17 g p.o. at bedtime as needed. 12. Lotrimin 1 application daily as needed. 13. Lopressor 12.5 mg p.o. b.i.d. 14. Lisinopril 40 mg daily. 15. Sinemet half a tab p.o. b.i.d. 16. Amlodipine 10 mg daily. 17. Lantus 23 units subcu at bedtime. ALLERGIES TO MEDICATIONS: Include AMPHETAMINE, CAFFEINE, SOMA, CODEINE, ERYTHROMYCIN, , EFUDEX, HYDROCHLOROTHIAZIDE, IBUPROFEN, LEVAQUIN, SKELAXIN , MACROBID, PENICILLIN and SULFA. FAMILY HISTORY: Mother had a history of CHF. Father had a history of dementia. SOCIAL HISTORY: She does not smoke, does not drink. Surrogate decision maker is her daughter. REVIEW OF SYSTEMS: There is no documented fever. She denies having any significant weight change. There was no double vision. She denies having any ear discharge. There is no rhinorrhea. She denied having any sore throat. No thyroid enlargement. Denies having any chest pain. There is no orthopnea, denies having any nocturnal dyspnea. There was no abdominal pain. There was nausea, but no vomiting or dysuria. No frequency. No seizure. No loss of consciousness, no pruritus and no skin ulcerations. Review of 14 systems completed, all others negative. PHYSICAL EXAMINATION GENERAL: At this time, Mrs. Workman is an 86-year-old female patient. She is sitting in the ED stretcher. She does not appear to be in any acute distress. She is well nourished and well developed. VITAL SIGNS: Blood pressure 147/52, pulse 70, respirations 16, O2 saturation 99 %, temperature 98.5. HEENT: Head is atraumatic, normocephalic. Eyes: EOMs are intact. Sclerae anicteric. No pale. Throat: Oral mucosa appears to be moist. No oropharyngeal erythema. NECK: Supple. LUNGS: Clear to auscultation. No wheezes, rales or rhonchi. HEART: Sounds S1, S2. Regular rate and rhythm. No murmurs, rubs or gallops. ABDOMEN: Soft, flat, nontender. Bowel sounds are present. EXTREMITIES: Pulses were 2+ throughout. She is able to move all 4 extremities with 5/5 strength. She has no calf tenderness. On exam, she is complaining of pain particularly on the left calf subjectively, but there is no swelling or erythema. NEUROLOGIC: She is awake, she is alert, she is oriented to self, confused to place and time. . Tongue midline. Academic Tutor were equal. No gross focal deficits. SKIN: Intact. DIAGNOSTIC STUDIES/LABORATORY DATA: WBC 7.6, RBC 4.23, hemoglobin 12.2, hematocrit 37, platelet count 158. INR was 0.94, PTT of 36.0. Sodium 137, potassium 4.0, chloride 102, bicarbonate 27, BUN 28, creatinine 0.79, glucose 168, lactate 2, calcium 10, total bilirubin 0.5, AST 15, ALT 6, alk phos 86. Troponin 0.02 initially and was 0.04. Albumin was 3.6, BNP was 360. She did have a chest x-ray obtained today. When I reviewed it, I did not appreciate any acute disease. Radiology read this as no radiographic evidence for acute cardiopulmonary abnormality on this portable x-ray. She did have an EKG obtained today showing a right bundle branch block with a rate of 67. No ST elevations or T-wave inversions. I reviewed to ilsa's EKG. Again, it showed normal sinus rhythm with a right bundle branch block, rate of 74, similar to her previous EKG. No significant changes. She had a stress test and an echo done in October 2017. Echo read EF of 60% to 65% . Stress test showed limited exam due to arrhythmia precluding gating for motion and study and, in the absence of CT attenuation, there is a large inferior lateral infarct with suggestion of mild carlee-infarct ischemia most prominent at the apical inferior segment. Old medical records reviewed. ASSESSMENT AND PLAN: Mrs. Workman is an 86-year-old female patient with mild- to- moderate dementia coming into the ED today with complaints of chest discomfort. She has had 2 episodes in the last week. We were asked to evaluate for admission. She will be admitted on observation status for: 1. Chest pain. Again, certainly there is concern that she could have some angina. I had had a long discussion with the family. At this point, they are not interested in further stress testing and they are not interested in a heart catheterization. They would like medical management. At this point, her heart is noted to be right around 70. Her last blood pressure actually was in the 140. They think we should go up on her beta-kelly as may be the higher rate is causing some ischemia. We could consider adding Ranexa. If we run out of blood pressure, we could always cut back on the lisinopril and back off on the calcium channel kelly or actually back off on the nitrates that she is on quite a lot of nitrates, but at this point I think we should trend her troponins. She is chest pain free, continue to monitor her to see if we can get her comfortable and I also added on a PPI. I am also going to check a D- dimer and get ultrasounds of the lower extremities to make sure there is not any other cause for the chest pain and we will continue to follow. 2. Dementia. Continue with supportive care. 3. History of coronary artery disease. She is on aspirin, statin, beta- kelly and nitrates. We will continue these medications and I have increased her beta- kelly for better heart rate control. 4. Hyperlipidemia. Continue statin therapy. 5. Hypertension. Continue her current medical regimen and I am increasing her beta-kelly. 6. History of Parkinson's with tremor. Continue her Sinemet. 7. History of small bowel obstruction. It does not appear to be an active issue. Follow up with primary. 8. Diabetes. Lispro sliding scale has been ordered. 9. DVT prophylaxis. Heparin subcu has been ordered. 10. Code status. She is a DNR. TIME SPENT: Time spent on the admission 60 minutes, greater than half the time spent [id number] with the patient obtaining my history and physical; other half time spent going over the plan of care with the patient and implementing plan of care. I did discuss the plan of care with my attending, Dr. Calderón, who is in agreement. EDER HANSON, RN DELIVERY [id number]/[facility] #: [id number] LIBRADO
[2017-07-08] MEDS ORDERED: Haloperidol INJ IV/IM* 5 MG/ML AMP IV ONE (02:27)
[2017-07-08] MEDS ORDERED: Iodixanol* (CONTRAST) 320 MG/ML 100 ML SDV IV ONE (03:42)
[2017-07-08 05:08] LABS: ABS Basophils 0 10^3/ul (0-0.2); ABS Eosinophils 0 10^3/ul (0-0.6); ABS Lymphocytes 2.3 10^3/ul (1.0-4.8); ABS Monocytes 0.5 10^3/ul (0-0.8); ABS Neutrophils 2.9 10^3/ul (1.5-7.7); ABS Nucleated RBC 0 10^3/ul; Eosinophil % 0.6 % (0-6); Hematocrit 34 % (35-47); Hemoglobin 11.4 g/dl (12.0-16.0); Mean Corpuscular HGB Conc 34 g/dl (31-36); Mean Corpuscular Hemoglobin 28 pg (27-31); Mean Corpuscular Volume 85 fL (80-97); Mean Platelet Volume 9.6 um3 (7.4-10.4); Nucleated Red Blood Cells % 0; Platelet Count 140 10^3/ul (150-450); Red Blood Count 4.03 10^6/ul (4.0-5.4); Red Cell Distribution Width 16 % (10.5-15); White Blood Count 5.7 10^3/ul (3.5-10.8)
[2017-07-08] MEDS: Omeprazole CAP* 20 MG PO SCH (05:19)
[2017-07-08] MEDS: Heparin VIAL(*) 5000 UNITS/ML VIAL (FIVE THOUSAND) SUBCUT SCH (05:19)
[2017-07-08 05:21] LABS: EGFR Non-African American 73.1 (>60)
--- NOTE | 2017-07-08 07:40 | RAD ---
INDICATION: Pain and swelling. COMPARISON: None TECHNIQUE: Duplex interrogation of the Lowerextremity was performed. FINDINGS: Deep veins: The common femoral, great saphenous, profunda femoris, proximal, mid, and distal deep femoral, popliteal, posterior tibial, and peroneal veins are patent. There is normal compressibility, augmentation, and phasic flow. Superficial veins: There are no findings of superficial thrombophlebitis. Popliteal fossa:There is no evidence of a popliteal cyst. Soft tissues: There is mild soft tissue swelling. Other: There are calcified arteries. IMPRESSION: No evidence of deep venous thrombosis
[2017-07-08] MEDS: Insulin LISPRO* 1 UNITS UNIT SUBCUT SCH ×2 (08:06→12:24)
[2017-07-08] MEDS: Metoprolol Tartrate TAB* 25 MG PO SCH (08:15)
--- NOTE | 2017-07-08 08:19 | RAD ---
HISTORY: Chest pain COMPARISONS: October 18, 2016 TECHNIQUE: Multiple contiguous axial CT scans of the chest were obtained after the administration of nonionic intravenous contrast, timed to the pulmonary arterial phase of contrast enhancement.. Coronal and sagittal multiplanar reformations are also submitted for review. FINDINGS: The study is limited by patient motion artifact. This limits the sensitivity for emboli within the segmental branches to the lower lobes bilaterally. NECK AND THYROID: The lower neck and thyroid are unremarkable. CHEST WALL: There is no lower cervical, axillary, or supraclavicular lymphadenopathy by size criteria. HEART AND PERICARDIUM: Coronary and valvular cardiac calcifications are noted. AORTA AND PULMONARY VASCULATURE: There is no pulmonary arterial filling defect to suggest pulmonary embolism. Evaluation of the aorta is limited to the phase of contrast demonstration. There is atherosclerosis of the thoracic aorta without aneurysmal dilatation.. MEDIASTINUM: There is no mediastinal lymphadenopathy by size criteria. SANDRA: There is no hilar lymphadenopathy by size criteria. AIRWAY AND ESOPHAGUS: The airway is unremarkable, without endobronchial filling defect. The esophagus is grossly normal. LUNG PARENCHYMA: There is patchy ground less opacification of the lung bases bilaterally. PLEURA: No pleural abnormalities are noted. UPPER ABDOMEN: The upper abdomen is unremarkable. BONES AND SOFT TISSUES: Degenerative changes are noted. The patient is status post median sternotomy. OTHER: None. IMPRESSION: 1. LIMITED STUDY. 2. ATHEROSCLEROSIS. 3. NO PULMONARY ARTERIAL FILLING DEFECT TO SUGGEST PULMONARY EMBOLISM. 4. PATCHY AIRSPACE DISEASE OF THE LUNG BASES BILATERALLY WHICH MAY BE AN ARTIFACT OF LOW VOLUMES.
[2017-07-08] MEDS ORDERED: Aspirin EC Low Dose* 81 MG TAB.EC PO SCH (09:00)
[2017-07-08] MEDS ORDERED: amLODIPine TAB* 5 MG PO SCH (09:00)
[2017-07-08] MEDS ORDERED: Senna TAB PO SCH (09:00)
[2017-07-08] MEDS ORDERED: Lisinopril TAB* 10 MG PO SCH (09:00)
[2017-07-08] MEDS ORDERED: Carbidopa/Levodop 25/100 MG TAB(*) PO SCH (09:00)
[2017-07-08] MEDS ORDERED: Nitroglycerin 0.2 MG/HR PATCH* (5 MG) TRANSDERM SCH (09:00)
[2017-07-08] MEDS: Isosorbide Dinitrate TAB* 10 MG PO SCH ×2 (09:17→12:24)
--- NOTE | 2017-07-08 11:14 | DS ---
CC: [facility] * DATE OF ADMISSION: 07/07/2017. DATE OF DISCHARGE: 07/08/2017. PRIMARY CARE PHYSICIAN: Samantha De Paz DO at [facility]. PRINCIPAL DIAGNOSIS: Chest pain. SECONDARY DIAGNOSES: 1. Advanced dementia. 2. Type 2 diabetes. 3. Hyperlipidemia. 4. Hypertension. 5. Parkinson's disease. DISCHARGE MEDICATIONS: 1. Potassium 20 mEq p.o. daily. 2. Sinemet 25/100 one tab at 0600 and 1600, one-half tab p.o. at noon and 2100. 3. Artificial Tears one drop to each eye twice daily prn dryness. 4. Aspirin 81 mg p.o. daily. 5. Vitamin D 50,000 units p.o. weekly. 6. Nitroglycerin 0.4 mg SL q.5 minutes prn chest pain. 7. Nitroglycerin patch 0.2 mg per hour patch topically daily. 8. Isordil 10 mg p.o. 4 times daily. 9. Senna two tabs p.o. twice daily. 10. Lipitor 40 mg p.o. at bedtime. 11. Ammonium Lactate apply nightly to legs as needed for dry skin. 12. MiraLax 17 gm p.o. at bedtime prn constipation. 13. Miconazole powder apply daily prn fungal infection. 14. Metoprolol Tartrate 12.5 mg p.o. t.i.d. (increased frequency). 15. Lisinopril 40 mg p.o. daily. 16. Amlodipine 10 mg p.o. daily. 17. Lantus 23 units subcutaneous at bedtime. HOSPITAL COURSE: Ms. Christianson is an 86-year-old female who has a history of coronary artery disease who presented to the emergency room with complaints of chest pain. The patient will frequently get chest pain that is typically managed at [facility] with sublingual Nitroglycerin. The patient required three nitro tablets and despite that she was still having chest pain with associated nausea and therefore was sent to the emergency room. The patient has an initial troponin of 0.02 which peaked at 0.06. The patient's chest pain has since resolved. The patient's daughter is present on the day of discharge and requests that medical management alone be utilized. Her Metoprolol was increased to 25 mg twice daily for a slower heart rate; however, with this her heart rate has been in the 40s to 50s. We will cut the Metoprolol to 12.5 mg p.o. three times daily. This is an increase in frequency from twice daily. The patient is also on Isordil which can be adjusted if she continues to have episodes of chest pain at [facility]. At this point, the patient is felt to be stable for discharge back to [facility]. On the day of discharge, the patient's vital signs are in good range with a blood pressure of 137/90, pulse of 54, respirations of 18, and a temp of 97.9. She is awake and alert, lying in bed. Cardiac exam reveals a normal S1, S2, a bradycardic rhythm. No murmurs were noted. She has no lower extremity edema. Pulmonary: Lungs are clear to auscultation anteriorly. Abdomen: Bowel sounds are present. Abdomen is soft, nontender, nondistended. Skin is warm and dry. There are no rashes. The patient's toenails are markedly dystrophic. FOLLOW-UP CONCERNS: The patient is being discharged back to [facility] today , 07/08/2017. ACTIVITY LEVEL: As tolerated. DIET: Heart healthy, diabetic. CONDITION ON DISCHARGE: Stable. Thirty-five minutes were spent discharging this patient. [id number]/[facility] #: [id number] LIBRADO
[2017-07-08 11:23] VITALS: BP 121/42
[2017-07-08] MEDS ORDERED: Atorvastatin* 40 MG TAB PO SCH (18:00)
[2017-07-08] MEDS ORDERED: Nitro Patch/OINT Remove PATCH OFF SCH (21:00)
[2017-07-08] MEDS ORDERED: Insulin GLARGINE(*) 1 UNITS UNIT SUBCUT SCH (21:00)
== END 2017-07-08 13:15 ==
LOC: EDBD → ED 16:32 → MEDTELE 20:59 → MERGE 20:59
PROVIDERS: ADMIT Hospitalist; ATTEND Hospitalist
DX: R07.9 Chest pain, unspecified (principal); I25.2 Old myocardial infarction; I25.10 Atherosclerotic heart disease of native coronary artery without angina pectoris; E11.9 Type 2 diabetes mellitus without complications; E78.5 Hyperlipidemia, unspecified; I10 Essential (primary) hypertension; G20 Parkinson's disease; F03.90 Unspecified dementia, unspecified severity, without behavioral disturbance, psychotic disturbance, mood disturbance, and anxiety; R06.02 Shortness of breath
CPT/HCPCS: 36415; 71045; 71275; 80048; 80053; 80061; 83036; 83605; 83880; 84484; 85025; 85379; 85610; 85730; 93005; 93970; 96374; 99284; A9270-GY; G0378; J1644; Q9967

== ENCOUNTER 2017-07-25 02:40 | Emergency (ER) | payer MEDICARE, MEDICAID ==
[2017-07-25 03:16] LABS: ABS Basophils 0.1 10^3/ul (0-0.2); ABS Eosinophils 0 10^3/ul (0-0.6); ABS Lymphocytes 1.7 10^3/ul (1.0-4.8); ABS Monocytes 0.6 10^3/ul (0-0.8); ABS Neutrophils 4.9 10^3/ul (1.5-7.7); ABS Nucleated RBC 0 10^3/ul; Eosinophil % 0.3 % (0-6); Hematocrit 37 % (35-47); Hemoglobin 12.1 g/dl (12.0-16.0); Lymphocyte % 23.3 % (25-47); Mean Corpuscular HGB Conc 33 g/dl (31-36); Mean Corpuscular Hemoglobin 28 pg (27-31); Mean Corpuscular Volume 85 fL (80-97); Mean Platelet Volume 10.1 um3 (7.4-10.4); Nucleated Red Blood Cells % 0.1; Platelet Count 162 10^3/ul (150-450); Red Blood Count 4.31 10^6/ul (4.0-5.4); Red Cell Distribution Width 16 % (10.5-15); White Blood Count 7.2 10^3/ul (3.5-10.8)
[2017-07-25 03:22] LABS: INR 0.94 (0.77-1.02)
[2017-07-25 03:31] LABS: EGFR Non-African American 68.8 (>60)
--- NOTE | 2017-07-25 04:08 | ED ---
Alessandra Resendez Gabriel, scribed for Grayson Fernandez MD on 07/25/17 at 0312 . HPI Chest Pain - HPI Summary HPI Summary: This patient is a 86 year old F BIBA to [facility] with a chief complaint of CP that began at 0030. Pt states she doesnt know why she is here and is unsure if she told anyone she ever had pain. The patient rates the pain 0/10 in severity. Symptoms alleviated by NTG. Patient denies LE pain, n/v, PRATT, CP currently, SOB, and ABD pain. Pt doesnt know where she is or what month it is. Hx A-fib LEVEL 5 CAVEAT: HPI limited due to dementia - History of Current Complaint Chief Complaint: EDChestPainROMI Time Seen by Provider: 07/25/17 02:49 Hx Obtained From: Patient Onset/Duration: Resolved Time of Onset: 00:30 Timing: Intermittent Initial Severity: Mild Current Severity: None Pain Intensity: 0 Pain Scale Used: 0-10 Numeric Chest Pain Location: Diffuse Alleviating Factor(s): NTG 123 Associated Signs and Symptoms: Positive: Negative - LE pain, n/v, PRATT, CP currently, SOB, and ABD pain - Additional Pertinent History Primary Care Physician: [id number] - Allergy/Home Medications Allergies/Adverse Reactions: Allergies Allergy/AdvReac Type Severity Reaction Status Date / Time amphetamine Allergy Unknown Verified 07/25/17 02:47 Reaction Details benzonatate Allergy Unknown Verified 07/25/17 02:47 [From Tessalon Perles] Reaction Details caffeine Allergy Unknown Verified 07/25/17 02:47 Reaction Details carisoprodol [From Soma] Allergy Unknown Verified 07/25/17 02:47 Reaction Details codeine Allergy Unknown Verified 07/25/17 02:47 Reaction Details erythromycin base Allergy Unknown Verified 07/25/17 02:47 Reaction Details fluorouracil [From Efudex] Allergy Unknown Verified 07/25/17 02:47 Reaction Details hydrochlorothiazide Allergy Unknown Verified 07/25/17 02:47 Reaction Details ibuprofen Allergy Unknown Verified 07/25/17 02:47 Reaction Details levofloxacin [From Levaquin] Allergy Unknown Verified 07/25/17 02:47 Reaction Details metaxalone [From Skelaxin] Allergy Unknown Verified 07/25/17 02:47 Reaction Details nitrofurantoin Allergy Unknown Verified 07/25/17 02:47 [From Macrobid] Reaction Details Penicillins Allergy Unknown Verified 07/25/17 02:47 Reaction Details Sulfa (Sulfonamide Allergy Unknown Verified 07/25/17 02:47 Antibiotics) Reaction Details PMH/Surg Hx/FS Hx/Imm Hx Endocrine/Hematology History: Reports: Hx Diabetes Denies: Hx Anticoagulant Therapy, Hx Systemic Lupus Erythematosus, Hx Thyroid Disease Cardiovascular History: Reports: Hx Hypercholesterolemia, Hx Hypertension, Hx Peripheral Vascular Disease, Other Cardiovascular Problems/Disorders - Quadruple bypass Surgery Denies: Hx Congestive Heart Failure, Hx Pacemaker/ICD Respiratory History: Reports: Hx Chronic Bronchitis, Hx Pneumonia Denies: Hx Asthma, Hx Chronic Obstructive Pulmonary Disease (COPD) GI History: Reports: Hx Diverticulosis, Hx Gall Bladder Disease Comment Only: Other GI Disorders - bowel blockage 11/2016 History: Denies: Hx Dialysis, Hx Renal Disease Musculoskeletal History: Reports: Hx Arthritis, Hx Back Problems Denies: Hx Rheumatoid Arthritis Sensory History: Reports: Hx Contacts or Glasses, Hx Deafness, Hx Hearing Problem - hard of hearing Denies: Hx Hearing Aid Opthamlomology History: Reports: Hx Contacts or Glasses Neurological History: Reports: Hx Dementia, Other Neuro Impairments/Disorders - Parkinsons Denies: Hx Developmental Delay, Hx Headaches, Hx Migraine, Hx Nerve Disease, Hx Seizures, Hx Spinal Cord Injury, Hx Transient Ischemic Attacks (TIA) Psychiatric History: Denies: Hx Substance Abuse - Cancer History Hx Chemotherapy: No - Surgical History Surgery Procedure, Year, and Place: laprascopic cholecystectomy, heart cath, quadruple bypass 1999, ruptured disc surgery 1997 Infectious Disease History: No Infectious Disease History: Denies: Hx Hepatitis, Hx Human Immunodeficiency Virus (HIV), Traveled Outside the [place] in Last 30 Days - Family History Known Family History: Positive: Unknown, Hypertension Family History: Patient is poor historian. - Social History Alcohol Use: None Hx Substance Use: No Substance Use Type: Reports: None Hx Tobacco Use: No Smoking Status (MU): Never Smoked Tobacco Review of Systems - ROS Summary Review of Systems Summary: LEVEL 5 CAVEAT: ROS limited due to dementia Positive: Chest Pain - that has resolved Negative: Shortness Of Breath Negative: Abdominal Pain, Vomiting, Nausea Musculoskeletal: Negative - LE pain Negative: Headache All Other Systems Reviewed And Are Negative: Yes Physical Exam - Summary Physical Exam Summary: Appearance: Well appearing, no pain distress Skin: warm, dry, reflects adequate perfusion, sternotomy scar Head/face: normal Eyes: EOMI, MARK ENT: normal Neck: supple, non-tender Respiratory: CTA, breath sounds present Cardiovascular: RRR, pulses symmetrical Abdomen: non-tender, soft Bowel Sounds: present Musculoskeletal: strength/ROM intact, mild erythema w/ chronic venous stasis changes in bilateral LE, 2+ bilateral LE edema. Bilateral LE scars . Neuro: normal, sensory motor intact, A&Ox3 Triage Information Reviewed: Yes Vital Signs On Initial Exam: Initial Vitals Temp Pulse Resp BP Pulse Ox 98 F 70 16 147/52 99 07/25/17 02:41 07/25/17 02:41 07/25/17 02:41 07/25/17 02:41 07/25/17 02:41 Vital Signs Reviewed: Yes Completion Of Physical Exam Limited Due To: Dementia, Level 5 Diagnostics - Vital Signs Vital Signs Temp Pulse Resp BP Pulse Ox 07/25/17 02:41 98 F 70 16 147/52 99 - Laboratory Lab Results: Lab Results 07/25/17 07/25/17 07/25/17 Range/Units 02:56 02:56 02:56 WBC 7.2 (3.5-10.8) 10^3/ul RBC 4.31 (4.0-5.4) 10^6/ul Hgb 12.1 (12.0-16.0) g/dl Hct 37 (35-47) % MCV 85 (80-97) fL MCH 28 (27-31) pg MCHC 33 (31-36) g/dl RDW 16 H (10.5-15) % Plt Count 162 (150-450) 10^3/ul MPV 10.1 (7.4-10.4) um3 Neut % (Auto) 67.8 (38-83) % Lymph % (Auto) 23.3 L (25-47) % [place] % (Auto) 7.8 H (0-7) % Eos % (Auto) 0.3 (0-6) % Baso % (Auto) 0.8 (0-2) % Absolute Neuts (auto) 4.9 (1.5-7.7) 10^3/ul Absolute Lymphs (auto) 1.7 (1.0-4.8) 10^3/ul Absolute Monos (auto) 0.6 (0-0.8) 10^3/ul Absolute Eos (auto) 0 (0-0.6) 10^3/ul Absolute Basos (auto) 0.1 (0-0.2) 10^3/ul Absolute Nucleated RBC 0 10^3/ul Nucleated RBC % 0.1 INR (Anticoag Therapy) 0.94 (0.77-1.02) APTT 36.1 (26.0-36.3) seconds Sodium (139-145) mmol/L Potassium (3.5-5.0) mmol/L Chloride (101-111) mmol/L Carbon Dioxide (22-32) mmol/L Anion Gap (2-11) mmol/L BUN (6-24) mg/dL Creatinine (0.51-0.95) mg/dL Est GFR ( Amer) (>60) Est GFR (Non-Af Amer) (>60) BUN/Creatinine Ratio (8-20) Glucose (70-100) mg/dL Lactic Acid (0.5-2.0) mmol/L Calcium (8.6-10.3) mg/dL Total Bilirubin (0.2-1.0) mg/dL AST (13-39) U/L ALT (7-52) U/L Alkaline Phosphatase (34-104) U/L Troponin I (<0.04) ng/mL B-Natriuretic Peptide 389 H ( - 100) pg/mL Total Protein (6.4-8.9) g/dL Albumin (3.2-5.2) g/dL Globulin (2-4) g/dL Albumin/Globulin Ratio (1-3) TSH (0.34-5.60) mcIU/mL 07/25/17 07/25/17 Range/Units 02:56 02:56 WBC (3.5-10.8) 10^3/ul RBC (4.0-5.4) 10^6/ul Hgb (12.0-16.0) g/dl Hct (35-47) % MCV (80-97) fL MCH (27-31) pg MCHC (31-36) g/dl RDW (10.5-15) % Plt Count (150-450) 10^3/ul MPV (7.4-10.4) um3 Neut % (Auto) (38-83) % Lymph % (Auto) (25-47) % [place] % (Auto) (0-7) % Eos % (Auto) (0-6) % Baso % (Auto) (0-2) % Absolute Neuts (auto) (1.5-7.7) 10^3/ul Absolute Lymphs (auto) (1.0-4.8) 10^3/ul Absolute Monos (auto) (0-0.8) 10^3/ul Absolute Eos (auto) (0-0.6) 10^3/ul Absolute Basos (auto) (0-0.2) 10^3/ul Absolute Nucleated RBC 10^3/ul Nucleated RBC % INR (Anticoag Therapy) (0.77-1.02) APTT (26.0-36.3) seconds Sodium 138 L (139-145) mmol/L Potassium 3.9 (3.5-5.0) mmol/L Chloride 106 (101-111) mmol/L Carbon Dioxide 25 (22-32) mmol/L Anion Gap 7 (2-11) mmol/L BUN 36 H (6-24) mg/dL Creatinine 0.79 (0.51-0.95) mg/dL Est GFR ( Amer) 88.5 (>60) Est GFR (Non-Af Amer) 68.8 (>60) BUN/Creatinine Ratio 45.6 H (8-20) Glucose 145 H (70-100) mg/dL Lactic Acid 1.6 (0.5-2.0) mmol/L Calcium 9.5 (8.6-10.3) mg/dL Total Bilirubin 0.30 (0.2-1.0) mg/dL AST 18 (13-39) U/L ALT 8 (7-52) U/L Alkaline Phosphatase 71 (34-104) U/L Troponin I 0.03 (<0.04) ng/mL B-Natriuretic Peptide ( - 100) pg/mL Total Protein 6.8 (6.4-8.9) g/dL Albumin 3.5 (3.2-5.2) g/dL Globulin 3.3 (2-4) g/dL Albumin/Globulin Ratio 1.1 (1-3) TSH 2.11 (0.34-5.60) mcIU/mL Result Diagrams: 07/25/17 02:56 07/25/17 02:56 Lab Statement: Any lab studies that have been ordered have been reviewed, and results considered in the medical decision making process. - Radiology CXR Radiology Interpretation Completed By: ED Physician - negative - EKG 0245 Cardiac Rate: NL EKG Rhythm: Sinus Rhythm - at [address] Segment: Non-Specific EKG Interpretation: RBBB, first dergree av block Re-Evaluation - Re-Evaluation First Eval Re-Evaluation Time: 03:57 Change: Unchanged Comment: I spoke with the patients daughter who arrived in ED. She would like her mother to return to her nursing facility. Chest Pain Course/Dx - Course Course Of Treatment: pt with significant dementia. Unaware that she even had pain. Hx of similar, with recent admission after elevated trop for recurring angina. Today only required 1 nitro. Pain free since. No trop elevation. Daughter here, states there is protocol for accelerated angina/unstable angina for the pt-- but that it includes recurring pain and 3+ nitros being given. She would like pt discharged. Pt has been stable throughtout. - Chest Pain Differential Diagnosis/HQI/PQRI: Acute MA, ACS, Angina, Other: - unstable angina. - Diagnoses Provider Diagnoses: CAD (coronary artery disease), Advanced dementia, Angina at rest Discharge - Sign-Out/Discharge Documenting (check all that apply): Discharge - Discharge Plan Condition: Improved Disposition: INTERMEDIATE CARE FACILITY Patient Education Materials: Angina (ED) Referrals: Jason James MD [Primary Care Provider] - Additional Instructions: Nitroglycerin as needed. Follow up with cardiology if episodes are increasing. Return if worse or other concerns. Consider change to "do not hospitalize". - Billing Disposition and Condition Condition: IMPROVED Disposition: ICF The documentation as recorded by the Alessandra mcdonald Gabriel accurately reflects the service I personally performed and the decisions made by me, Grayson Fernandez MD.
[2017-07-25 05:20] VITALS: BP 118/45
--- NOTE | 2017-07-25 07:45 | RAD ---
Indication: Chest pain. Single frontal view of the chest performed at 0305 hours was reviewed. Comparison is made with previous exam dated July 07, 2017. No mediastinal shift is noted. Heart is of normal size and configuration. Lung teixeira appear clear. Patient is status post transsternal thoracotomy. IMPRESSION: NO ACTIVE CARDIOPULMONARY DISEASE IS NOTED. POSTOPERATIVE CHANGES ARE PRESENT.
== END 2017-07-25 05:20 ==
LOC: ED 02:40
DX: I25.10 Atherosclerotic heart disease of native coronary artery without angina pectoris (principal); F03.90 Unspecified dementia, unspecified severity, without behavioral disturbance, psychotic disturbance, mood disturbance, and anxiety; I20.9 Angina pectoris, unspecified; I45.10 Unspecified right bundle-branch block; I44.0 Atrioventricular block, first degree
CPT/HCPCS: 36415; 71045; 80053; 83605; 83880; 84443; 84484; 85025; 85610; 85730; 93005; 99284

== ENCOUNTER 2017-08-11 23:14 | Observation (INO) | payer MEDICARE, MEDICAID ==
[2017-08-11] MEDS ORDERED: NS 0.9% 1000 ML* 1,000 ML IV ONE (23:54)
[2017-08-11] MEDS ORDERED: Albuterol/Ipratropium NEB.SOL* Albuterol 2.5 MG/Ipratropium 0.5 MG 3 ML INH ONE (23:56)
[2017-08-12 00:41] LABS: ABS Basophils 0 10^3/ul (0-0.2); ABS Eosinophils 0 10^3/ul (0-0.6); ABS Lymphocytes 1.5 10^3/ul (1.0-4.8); ABS Monocytes 1.3 10^3/ul (0-0.8); ABS Neutrophils 9.7 10^3/ul (1.5-7.7); ABS Nucleated RBC 0 10^3/ul; Eosinophil % 0.1 % (0-6); Hematocrit 29 % (35-47); Hemoglobin 9.6 g/dl (12.0-16.0); Lymphocyte % 12.1 % (25-47); Mean Corpuscular HGB Conc 33 g/dl (31-36); Mean Corpuscular Hemoglobin 28 pg (27-31); Mean Corpuscular Volume 84 fL (80-97); Mean Platelet Volume 11.7 um3 (7.4-10.4); Nucleated Red Blood Cells % 0.1; Platelet Count 138 10^3/ul (150-450); Red Blood Count 3.45 10^6/ul (4.0-5.4); Red Cell Distribution Width 17 % (10.5-15); White Blood Count 12.5 10^3/ul (3.5-10.8)
[2017-08-12 00:45] LABS: INR 1.11 (0.77-1.02)
[2017-08-12 01:02] LABS: EGFR Non-African American 40.5 (>60)
[2017-08-12] MEDS ORDERED: Aspirin SUPP* 300 MG PR ONE (02:01)
[2017-08-12] MEDS ORDERED: Nitroglycerin TAB 0.4 MG* 0.4 MG TAB SL PRN (02:11)
[2017-08-12] MEDS ORDERED: Albuterol 2.5 MG/3 ML NEB.SOL* (0.083%) INH PRN (02:23)
[2017-08-12] MEDS ORDERED: Dextrose 50% Syringe 50 ML* 25 GM/50 ML SYRINGE IV PUSH PRN (02:35)
--- NOTE | 2017-08-12 03:28 | ED ---
Kimberley Resendez Rebecca, scribed for Galindo Johnson on 08/11/17 at 2345 . Altered Mental Status - HPI Summary HPI Summary: Pt is an 86 y/o F BIBA who presents to ED accompanied by daughter from [facility] for AMS. Per nurse's note, she has been having decreased intake and increased lethargy, which daughter corroborated. Sx have been present for about 24 hours. Daughter reports a recent URI for which she began Robitussin. Pt is non-ambulatory and typically uses O2. Level 5 caveat due to AMS and dementia - History Of Current Complaint Chief Complaint: EDAltMentalStatus Stated Complaint: AMS Time Seen by Provider: 08/11/17 23:34 Hx Obtained From: Family/Pipe Stripper - Daughter, Medical Records Hx From Patient Unobtainable Due To: Altered Mental Status Onset/Duration: Still Present Timing: Lasting Days - 1 day Character: Lethargy - Allergies/Home Medications Allergies/Adverse Reactions: Allergies Allergy/AdvReac Type Severity Reaction Status Date / Time amphetamine Allergy Unknown Verified 07/25/17 02:47 Reaction Details benzonatate Allergy Unknown Verified 07/25/17 02:47 [From Tessalon Perles] Reaction Details caffeine Allergy Unknown Verified 07/25/17 02:47 Reaction Details carisoprodol [From Soma] Allergy Unknown Verified 07/25/17 02:47 Reaction Details codeine Allergy Unknown Verified 07/25/17 02:47 Reaction Details erythromycin base Allergy Unknown Verified 07/25/17 02:47 Reaction Details fluorouracil [From Efudex] Allergy Unknown Verified 07/25/17 02:47 Reaction Details hydrochlorothiazide Allergy Unknown Verified 07/25/17 02:47 Reaction Details ibuprofen Allergy Unknown Verified 07/25/17 02:47 Reaction Details levofloxacin [From Levaquin] Allergy Unknown Verified 07/25/17 02:47 Reaction Details metaxalone [From Skelaxin] Allergy Unknown Verified 07/25/17 02:47 Reaction Details nitrofurantoin Allergy Unknown Verified 07/25/17 02:47 [From Macrobid] Reaction Details Penicillins Allergy Unknown Verified 07/25/17 02:47 Reaction Details Sulfa (Sulfonamide Allergy Unknown Verified 07/25/17 02:47 Antibiotics) Reaction Details Home Medications: Home Medications Acetaminophen TAB* [Tylenol TAB*] 650 mg PO BID 08/12/17 [History Confirmed 05/01] Albuterol Sulfate 2.5 mg IN Q4H PRN 08/12/17 [History Confirmed 08/12/17] guaiFENesin ER TAB [Mucinex*] 1 tab PO Q4H 08/12/17 [History Confirmed 08/12/17] guaiFENesin LIQ* [Robitussin*] 5 mg PO Q4H PRN 08/12/17 [History Confirmed 08/12] PMH/Surg Hx/FS Hx/Imm Hx Endocrine/Hematology History: Reports: Hx Diabetes Denies: Hx Anticoagulant Therapy, Hx Systemic Lupus Erythematosus, Hx Thyroid Disease Cardiovascular History: Reports: Hx Hypercholesterolemia, Hx Hypertension, Hx Peripheral Vascular Disease, Other Cardiovascular Problems/Disorders - Quadruple bypass Surgery Denies: Hx Congestive Heart Failure, Hx Pacemaker/ICD Respiratory History: Reports: Hx Chronic Bronchitis, Hx Pneumonia Denies: Hx Asthma, Hx Chronic Obstructive Pulmonary Disease (COPD) GI History: Reports: Hx Diverticulosis, Hx Gall Bladder Disease Comment Only: Other GI Disorders - bowel blockage 11/2016 History: Denies: Hx Dialysis, Hx Renal Disease Musculoskeletal History: Reports: Hx Arthritis, Hx Back Problems Denies: Hx Rheumatoid Arthritis Sensory History: Reports: Hx Contacts or Glasses, Hx Deafness, Hx Hearing Problem - hard of hearing Denies: Hx Hearing Aid Opthamlomology History: Reports: Hx Contacts or Glasses Neurological History: Reports: Hx Dementia, Other Neuro Impairments/Disorders - Parkinsons Denies: Hx Developmental Delay, Hx Headaches, Hx Migraine, Hx Nerve Disease, Hx Seizures, Hx Spinal Cord Injury, Hx Transient Ischemic Attacks (TIA) Psychiatric History: Denies: Hx Substance Abuse - Cancer History Hx Chemotherapy: No - Surgical History Surgery Procedure, Year, and Place: laprascopic cholecystectomy, heart cath, quadruple bypass 1999, ruptured disc surgery 1997 Infectious Disease History: No Infectious Disease History: Denies: Hx Hepatitis, Hx Human Immunodeficiency Virus (HIV), Traveled Outside the [place] in Last 30 Days - Family History Known Family History: Positive: Hypertension - Social History Alcohol Use: None Hx Substance Use: No Substance Use Type: Reports: None Hx Tobacco Use: No Smoking Status (MU): Never Smoked Tobacco Review of Systems - ROS Summary Review of Systems Summary: Level 5 caveat due to AMS and dementia Positive: Other - Lethargy Positive: Other - Recent URI Positive: Other - Decreased intake All Other Systems Reviewed And Are Negative: No - Comments Additional Review of Systems Comments: Level 5 caveat due to AMS and dementia Physical Exam - Summary Physical Exam Summary: Appearance: No pain distress Skin: warm, dry, reflects adequate perfusion Head/face: normal Eyes: EOMI, MARK ENT: dry mucous membranes Neck: supple, non-tender Respiratory: bilateral rhonchi, breath sounds present Cardiovascular: RRR, pulses symmetrical ~ Musculoskeletal: strength/ROM intact, mild pitting edema Neuro: lethargic Triage Information Reviewed: Yes Vital Signs On Initial Exam: Initial Vitals Temp Pulse Resp BP Pulse Ox 97.8 F 75 20 123/65 100 08/11/17 23:32 08/11/17 23:32 08/11/17 23:32 08/11/17 23:32 08/11/17 23:32 Vital Signs Reviewed: Yes Completion Of Physical Exam Limited Due To: Dementia, Altered Mental Status, Level 5 - Ravinder Coma Scale Glascow Coma Scale Comments: 10 Diagnostics - Vital Signs Vital Signs Temp Pulse Resp BP Pulse Ox 08/11/17 23:32 97.8 F 75 20 123/65 100 - Laboratory Lab Results: Lab Results 08/12/17 08/12/17 08/12/17 Range/Units 00:26 00:26 00:26 WBC 12.5 H (3.5-10.8) 10^3/ul RBC 3.45 L (4.0-5.4) 10^6/ul Hgb 9.6 L (12.0-16.0) g/dl Hct 29 L (35-47) % MCV 84 (80-97) fL MCH 28 (27-31) pg MCHC 33 (31-36) g/dl RDW 17 H (10.5-15) % Plt Count 138 L (150-450) 10^3/ul MPV 11.7 H (7.4-10.4) um3 Neut % (Auto) 77.6 (38-83) % Lymph % (Auto) 12.1 L (25-47) % [place] % (Auto) 10.1 H (0-7) % Eos % (Auto) 0.1 (0-6) % Baso % (Auto) 0.1 (0-2) % Absolute Neuts (auto) 9.7 H (1.5-7.7) 10^3/ul Absolute Lymphs (auto) 1.5 (1.0-4.8) 10^3/ul Absolute Monos (auto) 1.3 H (0-0.8) 10^3/ul Absolute Eos (auto) 0 (0-0.6) 10^3/ul Absolute Basos (auto) 0 (0-0.2) 10^3/ul Absolute Nucleated RBC 0 10^3/ul Nucleated RBC % 0.1 INR (Anticoag Therapy) (0.77-1.02) Sodium 139 (139-145) mmol/L Potassium 4.6 (3.5-5.0) mmol/L Chloride 107 (101-111) mmol/L Carbon Dioxide 23 (22-32) mmol/L Anion Gap 9 (2-11) mmol/L BUN 92 H (6-24) mg/dL Creatinine 1.25 H (0.51-0.95) mg/dL Est GFR ( Amer) 52.1 (>60) Est GFR (Non-Af Amer) 40.5 (>60) BUN/Creatinine Ratio 73.6 H (8-20) Glucose 148 H (70-100) mg/dL Lactic Acid (0.5-2.0) mmol/L Calcium 10.0 (8.6-10.3) mg/dL Total Bilirubin 0.40 (0.2-1.0) mg/dL AST 31 (13-39) U/L ALT 7 (7-52) U/L Alkaline Phosphatase 80 (34-104) U/L Troponin I 1.43 H* (<0.04) ng/mL B-Natriuretic Peptide 3379 H ( - 100) pg/mL Total Protein 6.5 (6.4-8.9) g/dL Albumin 3.0 L (3.2-5.2) g/dL Globulin 3.5 (2-4) g/dL Albumin/Globulin Ratio 0.9 L (1-3) Procalcitonin (<0.6) ng/mL 08/12/17 08/12/17 08/12/17 Range/Units 00:26 00:26 00:26 WBC (3.5-10.8) 10^3/ul RBC (4.0-5.4) 10^6/ul Hgb (12.0-16.0) g/dl Hct (35-47) % MCV (80-97) fL MCH (27-31) pg MCHC (31-36) g/dl RDW (10.5-15) % Plt Count (150-450) 10^3/ul MPV (7.4-10.4) um3 Neut % (Auto) (38-83) % Lymph % (Auto) (25-47) % [place] % (Auto) (0-7) % Eos % (Auto) (0-6) % Baso % (Auto) (0-2) % Absolute Neuts (auto) (1.5-7.7) 10^3/ul Absolute Lymphs (auto) (1.0-4.8) 10^3/ul Absolute Monos (auto) (0-0.8) 10^3/ul Absolute Eos (auto) (0-0.6) 10^3/ul Absolute Basos (auto) (0-0.2) 10^3/ul Absolute Nucleated RBC 10^3/ul Nucleated RBC % INR (Anticoag Therapy) 1.11 H (0.77-1.02) Sodium (139-145) mmol/L Potassium (3.5-5.0) mmol/L Chloride (101-111) mmol/L Carbon Dioxide (22-32) mmol/L Anion Gap (2-11) mmol/L BUN (6-24) mg/dL Creatinine (0.51-0.95) mg/dL Est GFR ( Amer) (>60) Est GFR (Non-Af Amer) (>60) BUN/Creatinine Ratio (8-20) Glucose (70-100) mg/dL Lactic Acid 1.4 (0.5-2.0) mmol/L Calcium (8.6-10.3) mg/dL Total Bilirubin (0.2-1.0) mg/dL AST (13-39) U/L ALT (7-52) U/L Alkaline Phosphatase (34-104) U/L Troponin I (<0.04) ng/mL B-Natriuretic Peptide ( - 100) pg/mL Total Protein (6.4-8.9) g/dL Albumin (3.2-5.2) g/dL Globulin (2-4) g/dL Albumin/Globulin Ratio (1-3) Procalcitonin 0.5 (<0.6) ng/mL Result Diagrams: 08/12/17 00:26 08/12/17 00:26 Lab Statement: Any lab studies that have been ordered have been reviewed, and results considered in the medical decision making process. - Radiology CXR Xray Interpretation: Positive (See Comments) - Right lower lobe PNA. CHF. Radiology Interpretation Completed By: ED Physician - EKG 0005 Cardiac Rate: NL - 70 bpm EKG Rhythm: Sinus Rhythm EKG Interpretation: Inferior STEMI Re-Evaluation - Re-Evaluation First Eval Re-Evaluation Time: 00:20 Comment: Blood draw. Altered Mental Statu Course/Dx - Course Assessment/Plan: Pt is an 86 y/o F BIBA who presents to ED accompanied by daughter from [facility] for AMS, characterized as lethargy, along with decreased intake for about 24 hours. Daughter reports a recent URI for which she began Robitussin. Pt is non-ambulatory and typically uses O2. Level 5 caveat due to AMS and dementia. Bloodwork was done, troponin of 1.43, WBC of 12.5, BNP of 3379. CXR reveals right lower lobe PNA and CHF. EKG reveals inferior STEMI. Discussed care of pt with Dr. Zhao alan at 0205 who recommended medical management and admission. Discussed care of pt with Dr. De Paz at 0210 who accepts pt for admission. Pt will be admitted with Dx of renal failure, dementia, STEMI, and CHF. CC time of 30 minutes. Allergies noted. - Diagnoses Differential Diagnosis/HQI/PQRI: Metabolic Disorder, Sepsis Provider Diagnoses: STEMI (ST elevation myocardial infarction), CHF (congestive heart failure), Renal failure, Dementia - Provider Notifications Discussed Care Of Patient With: Marciano Churchill Time Discussed With Above Provider: 01:53 Instructed by Provider To: Other - Will call back. Discussed care of pt with Dr. Zhao alan at 0205 who recommended medical management and admission per family's requests. Discussed care of pt with Dr. De Paz at 0210 who accepts pt for admission. - Critical Care Time Critical Care Time: 30-74 min - 30 minutes Discharge - Sign-Out/Discharge Documenting (check all that apply): Discharge/Admit/Transfer - Admit - Discharge Plan Condition: Stable Disposition: ADMITTED TO [facility] - Billing Disposition and Condition Condition: STABLE [place] [facility] [place] The documentation as recorded by the Kimberley mcdonald Rebecca accurately reflects the service I personally performed and the decisions made by Alex avila Emmanuel.
[2017-08-12] MEDS: Metoprolol Tartrate IV* 1 MG/ML 5 ML VIAL IV SCH ×2 (04:10→11:34)
[2017-08-12] MEDS: NS 0.9% 1000 ML* 1,000 ML IV SCH ×2 (04:20→17:50)
[2017-08-12] MEDS ORDERED: Morphine INJ* 2 MG/ML 1 ML CARPUJECT IV PRN ×2 (05:54→09:20)
--- NOTE | 2017-08-12 05:59 | HP ---
HISTORY AND PHYSICAL: DATE OF ADMISSION: 08/12/17 PRIMARY CARE PROVIDER: Samantha De Paz DO, at [facility]. CHIEF COMPLAINT: Increased lethargy. HISTORY OF PRESENT ILLNESS: Ms. Workman is an 86-year-old female who I know from [facility], who was brought to the emergency room after the staff at [facility] noticed increased lethargy. The patient has a history of advanced dementia and generally is unable to provide much reliable history; however, today she is unable to provide any history whatsoever. Again, staff at [facility] note that over the last couple of days the patient has had increasing lethargy and she has not been eating or drinking well. An attempt was made at placing an IV and obtaining labs on the evening of 08/11/17; however, this was unable to be accomplished. A clysis system was placed and the patient was receiving IV fluids subcutaneously. The patient was also reportedly hypothermic at the [facility]. PAST MEDICAL HISTORY: 1. Advanced dementia. 2. Coronary artery disease. 3. Type 2 diabetes. 4. Hyperlipidemia. 5. Hypertension. 6. Parkinson's disease. 7. Past history of SBO. PAST SURGICAL HISTORY: 1. CABG. 2. Hysterectomy. 3. Cholecystectomy. MEDICATIONS: 1. Lantus 23 units subcutaneous q.h.s. 2. MiraLAX 17 g p.o. q.h.s. p.r.n. constipation. 3. Nitroglycerin 0.4 mg SL q. 5 minutes p.r.n. chest pain. 4. Nitroglycerin 0.2 mg per hour patch applied topically daily. 5. Miconazole 1 application daily p.r.n. redness. 6. Isordil 10 mg p.o. 4 times daily. 7. Artificial Tears 1 drop to both eyes twice daily p.r.n. dryness. 8. Senna 2 tablets p.o. twice daily. 9. Metoprolol tartrate 12.5 mg p.o. t.i.d. 10. Sinemet 25/100 one tab p.o. at 6 a.m. and 4 p.m., one-half tab at noon and 2100. 11. Lipitor 40 mg p.o. q.h.s. 12. Amlodipine 10 mg p.o. daily. 13. Potassium chloride 20 mEq p.o. daily. 14. Lisinopril 40 mg p.o. daily. 15. Aspirin 81 mg p.o. daily. 16. Ammonium lactate applied topically each evening to the left leg for dry skin as needed. 17. Tylenol 650 mg p.o. twice daily. 18. Robitussin 5 mL p.o. q.4 hours p.r.n. cough. 19. Vitamin D 50,000 units p.o. monthly. 20. Guaifenesin ER 600 mg p.o. q. 4 hours. 21. Albuterol 1 neb inhaled q. 4 hours p.r.n. shortness of breath. ALLERGIES: AMPHETAMINE, TESSALON, CAFFEINE, SOMA, CODEINE, ERYTHROMYCIN, FLUOROURACIL, HYDROCHLOROTHIAZIDE, IBUPROFEN, LEVOFLOXACIN, SKELAXIN, NITROFURANTOIN, PENICILLIN, and SULFA. FAMILY HISTORY: Mom had a history of CHF. Dad had a history of dementia. SOCIAL HISTORY: The patient does not smoke. She does not drink. Her surrogate decision maker is her daughter Janet. REVIEW OF SYSTEMS: Unobtainable from the patient as she does not answer any questions at this time. PHYSICAL EXAMINATION GENERAL: The patient is a well-developed elderly female seen lying in the stretcher, appearing somewhat agitated with myoclonic jerking and unresponsive by voice to any questions. VITAL SIGNS: Blood pressure 126/73, pulse 73, respirations 22, temp 97.8, O2 sat 93% on 6 L. HEENT: Pupils are equal and round. Oropharynx is markedly dry. PULMONARY: There are coarse breath sounds throughout. CARDIAC: Normal S1, S2. Regular rate and rhythm. There is a 2/6 systolic murmur heard best at the right upper sternal border. There is no significant lower extremity edema. ABDOMEN: Bowel sounds are present. Abdomen is soft, nontender, and nondistended. MUSCULOSKELETAL: The patient moves her upper extremities spontaneously. She has jerking noted of the bilateral lower extremities. SKIN: Warm. It is dry. There are no rashes. She does have blanching erythema to her sacral area and medial buttocks bilaterally. NEUROLOGIC: The patient is not cooperative with exam but again appears to have myoclonic jerking. PSYCH: The patient lethargic but agitated appearing. DIAGNOSTIC STUDIES/LAB DATA: Labs, WBC 12.5, hemoglobin 9.6, hematocrit 29, platelets 138. INR 1.11. Sodium 139, potassium 4.6, chloride 107, CO2 23, BUN 92, creatinine 1.25, glucose 148, lactic acid 1.4. Calcium 10, bilirubin 0.4, AST 31, ALT 7, alk phos 80. Troponin 1.43, BNP 3379, albumin 3.0. EKG reveals a normal sinus rhythm with a right bundle-branch block. There appears to be ST elevation in the inferior leads; however, this is unchanged from prior and likely is a repolarization abnormality. Chest x-ray to my interpretation, a question of pulmonary edema with cephalization of the vessels. ASSESSMENT AND PLAN: Ms. Workman is an 86-year-old female with a history of advanced dementia; coronary artery disease, status post coronary artery bypass graft many years ago; type 2 diabetes, hypertension, hyperlipidemia, and Parkinson's disease who was brought to the emergency room from [facility] with increased lethargy and decreased oral intake. 1. Non-ST elevation myocardial infarction. The patient's initial troponin is elevated at 1.43. She will frequently have an elevated troponin but this is the highest it has ever been. We will follow this every 3 hours. At this point , I am not going to start a heparin drip as the patient has had over a 2-point drop in hemoglobin since mid July. While her stool guaiac is negative, I feel uncomfortable starting anticoagulation at this point. She will continue on her aspirin, though this will be given rectally as she is not alert enough to swallow. I will order her Lipitor; however, again if she is unable to swallow, this will be held. Metoprolol tartrate 2.5 mg will be given IV every 6 hours standing as again she is unable to take her oral medications at this point. She will be maintained on her nitroglycerin patch. 2. Altered mental status. The patient is minimally responsive at this point. She seems quite agitated. She appears to have myoclonic jerking. Her altered mental status may be related to her elevated BUN versus her myocardial infarction versus an infectious source; however, infection seems lower on the differential. The patient will be receiving IV fluids cautiously as her BUN is markedly elevated at this point. I will go ahead and get a CT of the brain without contrast given her change in mental status. 3. Probable acute diastolic versus systolic congestive heart failure. The patient's last echocardiogram was in October 2016, at which point, her EF was estimated to be 60% to 65%. The patient's BNP currently is markedly elevated compared to her prior. I suspect this may be related to an acute myocardial infarction. The patient however does appear to be intravascularly dry. We will cautiously give IV fluids; however, if she starts to show respiratory distress from this, the IV fluids will need to be held and perhaps diuretics given. 4. Anemia. The patient's hemoglobin on July 25 was normal at 12.1. Today it is down to 9.6. This is an over 2-point drop. I am concerned that she may have had GI bleed especially given the elevated BUN of 92, which seems out of proportion to her creatinine which is mildly elevated at 1.25. Stool guaiac was obtained by myself in the emergency room and was negative for blood. We will need to continue to monitor her bowel movements and her hemoglobin/ hematocrit. As above, I am holding any anticoagulation for her acute myocardial infarction given the significant drop in her hemoglobin over the past month. 5. Leukocytosis. The patient has a mild leukocytosis of 12.5. This could just be a stress reaction. I am going to hold off on antibiotic therapy at this point. The patient's chest x-ray to me appears to be possibly congestive heart failure though we will add on a procalcitonin to help determine if perhaps she may have an underlying pneumonia. 6. Thrombocytopenia. The patient is mildly thrombocytopenic with a platelet count of 138. She will intermittently be thrombocytopenic and this is within her range. 7. Elevated creatinine. The patient's baseline creatinine is around 0.75 to 0.8. Her creatinine now is 1.25. She reportedly was not eating or drinking well at [facility]. As above, she will be receiving gentle IV fluid hydration. 8. DVT prophylaxis. According to the Adult Thrombosis Prophylaxis Risk Factor Assessment Guide, the patient has a total risk factor score of 4 making her high risk. SCDs alone will be utilized as DVT prophylaxis given the significant drop in H and H. 3. Code status is DNR with a trial of intubation. If the patient fails to improve over the course of the next 12 to 24 hours, I recommend a palliative care consultation. [id number]/[facility] #: [id number] [facility]
[2017-08-12] MEDS: Carbidopa/Levodop 25/100 MG TAB(*) PO SCH ×4 (06:01→23:26)
[2017-08-12] MEDS: Insulin LISPRO* 1 UNITS UNIT SUBCUT SCH ×3 (07:32→23:26)
--- NOTE | 2017-08-12 07:55 | RAD ---
INDICATION: Altered mental status COMPARISON: Most recent comparison chest x-rays dated July 25, 2017 TECHNIQUE: Single AP portable view of the chest was obtained. FINDINGS: Image quality is compromised due to the relative inferiority of a portable chest x-ray. There is a mild degree of cardiomegaly with coarse calcification overlying the arch of the aorta. There are patchy densities obscuring the bilateral lung base and bilateral diaphragm. The pulmonary vasculature appears engorged and indistinct. Visualized bones are normal for the patient's age. IMPRESSION: Chest x-ray findings are most consistent with cardiogenic pulmonary edema likely with bibasilar pleural effusions.
[2017-08-12] MEDS ORDERED: Nitroglycerin 0.2 MG/HR PATCH* (5 MG) TRANSDERM SCH (09:00)
[2017-08-12] MEDS ORDERED: Ondansetron ODT TAB* 4 MG PO PRN (09:19)
[2017-08-12] MEDS ORDERED: Morphine INJ* 2 MG/ML 1 ML CARPUJECT ONE (09:36)
[2017-08-12] MEDS ORDERED: Ondansetron INJ* 2 MG/ML VIAL IV PRN (10:00)
[2017-08-12] MEDS ORDERED: LORazepam INJ* 2 MG/ML 1 ML VIAL IV PUSH PRN (10:00)
[2017-08-12] MEDS ORDERED: diPHENhydraMINE IV* 50 MG/ML 1 ml VIAL (BENADRYL) IV PRN (10:05)
--- NOTE | 2017-08-12 10:11 | PN ---
Hospitalist Progress Note Date of Service: 08/12/17 I have seen Ms. Workman this morning with her family at the bedside. I explained the findings of NSTMI, MOHIT, Anemia in the setting of worsening dementia and the extent of diagnostics we could pursue. They prefer a comfort approach instead of further work up or treatment. Will change to comfort care, consult palliative care, and plan for return to [facility] with hospice once we get her symptoms controlled.
[2017-08-12] MEDS: Nitroglycerin 0.2 MG/HR PATCH* (5 MG) TRANSDERM SCH (11:33)
[2017-08-12 11:35] VITALS: BP 114/48
[2017-08-12] MEDS: Morphine INJ* 2 MG/ML 1 ML CARPUJECT IV PRN ×3 (14:45→21:14)
[2017-08-12] MEDS ORDERED: Atorvastatin* 40 MG TAB PO SCH (18:00)
[2017-08-12] MEDS ORDERED: Nitro Patch/OINT Remove PATCH OFF SCH (21:00)
[2017-08-13] MEDS: Morphine INJ* 2 MG/ML 1 ML CARPUJECT IV PRN ×3 (00:15→08:58)
[2017-08-13] MEDS: Insulin LISPRO* 1 UNITS UNIT SUBCUT SCH ×3 (00:46→11:31)
[2017-08-13] MEDS: Carbidopa/Levodop 25/100 MG TAB(*) PO SCH ×2 (05:59→11:30)
[2017-08-13] MEDS ORDERED: Morphine ORAL.SOLN 10 mg* 2 MG/ML UDC 5 ml PO PRN (10:14)
[2017-08-13] MEDS: Nitroglycerin 0.2 MG/HR PATCH* (5 MG) TRANSDERM SCH (10:49)
[2017-08-13] MEDS ORDERED: Morphine ORAL CONCENTRATE* 5 MG/0.25 ML ORAL.SYRIN PO PRN (12:41)
--- NOTE | 2017-08-13 16:50 | DS ---
DATE OF ADMISSION: 08/12/2017. DATE OF DISCHARGE: 08/13/2017. [facility] DISPOSITION[facility] with [facility] care and a hospice referral. PRINCIPAL DISCHARGE DIAGNOSES: 1. Comfort care. 2. NSTEMI. 3. End-stage dementia. 4. Bacteremia. 5. Anemia. 6. Acute kidney injury. 7. Chronic diastolic heart failure. PHYSICAL EXAMINATION AT THE TIME OF DISCHARGE: General: Elderly female in no distress. She is sleeping and does not awake to my voice. Vital Signs: No vital signs have been taken due to comfort care since 3:00 a.m. this morning and at that time her heart rate was 72, her respiratory rate was 20, and her pulse ox was 97 percent on room air. HEENT: Mucosa is very dry. Oral mucosa is crusted. She does not open her eyes to my voice. Neck: No JVP, no cervical lymphadenopathy. Chest: Regular rate and rhythm. A systolic murmur is heard throughout. Her lungs have coarse rhonchi, but laterally anteriorly. Abdomen: Soft. She does not grimace when I palpate her abdomen. She has normoactive bowel sounds. Extremities: No edema. No rashes or ulcers. Neurologic: She does not follow commands and does not answer my questions this morning. HOSPITAL COURSE BY PROBLEM: 1. End of life care: When [facility]argy and decreased appetite, end of life care was discussed with her family and they agreed with that on the morning of admission. The family declined further work-up of her NSTEM and leukocytosis and wished for only comfort measures. This decision was made by her children. Of note, she has eight children and the principal decision maker is her daughter Janet. 2. NSTEMI: Her admission troponin was 1.43. Again the probability of an NSTEMI was discussed with her family; however, they declined further work-up or even further troponin trending, so she was treated conservatively with only pain control. 3. Bacteremia: Blood cultures were collected in the emergency department and were positive for enterococcus faecalis and pseudomonas; however, under comfort care we did not attempt volume resuscitation or antibiotic therapy. 4. Acute kidney injury: Her admission creatinine was 1.25 and her baseline was 0.75. She also had decreased urine output; however, we did not trend her creatinine, so I suspect she has ongoing renal failure which may contribute to the end of her life. DISPOSITION: Ms. Workman [facility] with a hospice referral. Her family is in agreement of this treatment plan and understands that the insults that she has sustained will likely be life limiting. If you have any questions or concerns about this admission and discharge summary , please feel free to call me at [phone]. [id number]/[facility] #: [id number] [facility]
== END 2017-08-13 19:15 | disposition hospice, home (50) ==
LOC: ED 23:14 → INTOOBSV 08-12 02:09 → MEDTELE 08-12 02:09
PROVIDERS: ADMIT Hospitalist; ATTEND Internal Medicine
DX: I21.4 Non-ST elevation (NSTEMI) myocardial infarction (principal); G30.9 Alzheimer's disease, unspecified; F02.80 Dementia in other diseases classified elsewhere, unspecified severity, without behavioral disturbance, psychotic disturbance, mood disturbance, and anxiety; R78.81 Bacteremia; D64.9 Anemia, unspecified; N17.9 Acute kidney failure, unspecified; I11.0 Hypertensive heart disease with heart failure; I50.32 Chronic diastolic (congestive) heart failure; Z79.899 Other long term (current) drug therapy; Z88.0 Allergy status to penicillin; Z88.2 Allergy status to sulfonamides; Z88.8 Allergy status to other drugs, medicaments and biological substances; D72.829 Elevated white blood cell count, unspecified; D69.6 Thrombocytopenia, unspecified; R94.4 Abnormal results of kidney function studies; E11.9 Type 2 diabetes mellitus without complications; I45.2 Bifascicular block
CPT/HCPCS: 36415; 71045; 80053; 82272; 83605; 83880; 84145; 84484; 85025; 85610; 87040; 87077; 87186; 87205; 87502; 93005; 94640; 96374; 96376; 99285; A9270-GY; G0378; J2270